=== PATIENT | male | born 1970 | race Caucasian/White ===

== ENCOUNTER 2017-02-15 17:41 | Inpatient (IN) | payer OTHER ==
[~2017-02-15] VITALS: Ht 170.2 cm; Wt 79.7 kg
[2017-02-15] MEDS ORDERED: MoRPHine SULFATE 4 MG/ML 1 ML CARP\\VIAL IV STA (18:00)
[2017-02-15] MEDS ORDERED: SODIUM CHLORIDE 0.9% 1000ML 1,000 ML IV STA (18:00)
[2017-02-15] MEDS ORDERED: ONDANSETRON INJ 2 MG/ML 2 ML VIAL IV STA (18:00)
[2017-02-15] MEDS ORDERED: SODIUM CHLORIDE 0.9% 500ML 500 ML IV STA (18:00)
[2017-02-15] MEDS ORDERED: PARO30TA5 PO (18:13)
[2017-02-15] MEDS ORDERED: CARV6.25 PO (18:13)
[2017-02-15] MEDS ORDERED: ASPI-461 PO (18:13)
[2017-02-15] MEDS ORDERED: GEMF600T3 PO (18:13)
[2017-02-15] MEDS ORDERED: PRAZ1CAP10 PO (18:13)
[2017-02-15] MEDS ORDERED: VNTHFA/IN INH (18:13)
[2017-02-15] MEDS ORDERED: IBUP600T44 PO (18:13)
[2017-02-15] MEDS ORDERED: HYDR50CA2 PO (18:13)
[2017-02-15] MEDS ORDERED: AMOX875T PO (18:14)
[2017-02-15] MEDS ORDERED: OPTIRAY 320 IV PRN (18:15)
[2017-02-15 18:35] LABS: BASO % 0.2 %; BASO ABS # 0.03 K/uL (0-0.2); COMPLETE YES; EOS % 0.6 %; HEMATOCRIT 44.6 % (42-52); IG% 0.3 %; LYMPH % 15.4 %; MEAN CELL VOLUME 90.8 fL (80-100); MEAN CORPUSCULAR HEMOGLOBIN 31.6 pg (25-34); MEAN CORPUSCULAR HGB CONC 34.8 g/dl (32-36); MEAN PLATELET VOLUME 9.5 fL (7.4-10.4); MONO % 8.4 %; NEUT % 75.1 %; PLATELET COUNT 474 K/uL (130-400); RED BLOOD COUNT 4.91 M/uL (4.7-6.1); WHITE BLOOD COUNT 17.49 K/uL (4.8-10.8)
[2017-02-15 18:58] LABS: PROTHROMBIN TIME (PATIENT) 10.8 SECONDS (9.0-12.0)
[2017-02-15 19:21] LABS: ALKALINE PHOSPHATASE 59 U/L (45-117); ALT/SGPT 22 U/L (12-78); BLOOD UREA NITROGEN 20 mg/dl (7-18); BUN/CREATININE RATIO 26.8 (10-20); CALCIUM 8.9 mg/dl (8.5-10.1); CARBON DIOXIDE 24 mmol/L (21-32); CHLORIDE 103 mmol/L (98-107); CREATININE 0.75 mg/dl (0.60-1.40); GLUCOSE 86 mg/dl (70-99)
[2017-02-15 19:26] LABS: POTASSIUM 3.4 mmol/L (3.5-5.1); SODIUM 138 mmol/L (136-145)
[2017-02-15 19:32] LABS: AST/SGOT 14 U/L (15-37)
--- NOTE | 2017-02-15 20:16 | DIAGNOSTIC IMAGING REPORT ---
CT OF THE ABDOMEN AND PELVIS WITH CONTRAST CLINICAL HISTORY: Left lower quadrant abdominal pain with bleeding. COMPARISON STUDY: None. TECHNIQUE: Following IV administration of 91 mL of Optiray-320, axial images of the abdomen and pelvis were obtained from the lung bases to the proximal femurs. Images were reviewed in the axial, sagittal, and coronal planes. IV contrast was administered without complication. A dose lowering technique was utilized adhering to the principles of ALARA. CT DOSE: 297.04 mGy.cm FINDINGS: Imaged portions of the lower chest partially visualize pacer leads. There is moderate cardiomegaly. A right hepatic lobe calcification is of no clinical significance. The spleen, adrenal glands, kidneys and pancreas are normal. There is no biliary or pancreatic ductal dilatation. There is no pneumatosis, free air or portal venous gas. There is no evidence for a bowel obstruction. The appendix is normal. Note is made of moderate wall thickening of cecum and ascending colon with mild wall thickening of the transverse colon consistent with a colitis. There is no abscess. No suspicious skeletal lesions are present. Note is made of a mildly enlarged left pelvic side wall/external iliac lymph node that measures 2.5 x 1.2 cm. This has central hypodensity with peripheral enhancement suggestive of necrosis. An additional left external iliac node measures 1.3 cm in short axis diameter. A left inguinal node measures 1.3 cm in short axis diameter and a left common iliac lymph node measures 1.2 cm in short axis diameter. IMPRESSION: 1. Moderate wall thickening of the cecum and ascending colon with mild wall thickening of the transverse colon. This represents a nonspecific colitis which could be infectious, inflammatory or ischemic in etiology. No free air or abscess. 2. Mild left common iliac, external iliac, pelvic sidewall and inguinal lymphadenopathy with a partially necrotic/suppurative left pelvic sidewall node. The findings may be infectious/reactive or neoplastic in etiology. Although statistically unlikely, tuberculosis could have this appearance. Findings discussed with Dr. Le at time of dictation. Electronically signed by: Clemente Phillips M.D. 02/15/2017 8:14 PM Dictated Date/Time: 02/15/2017 7:56 PM
[2017-02-15] MEDS ORDERED: ONDANSETRON INJ 2 MG/ML 2 ML VIAL IV PRN (21:15)
--- NOTE | 2017-02-15 21:21 | Progress Note ---
Progress Note Date of Service Feb 15, 2017. Progress Note ATTENDING ADDENDUM care coordinated with MARNIE Rider please refer to her notes for full details, I agree with her notes patient seen and examined, records reviewed by myself as well on exam, patient seen sitting up in bed comfortable main symptom is RLQ pain associated with hematochezia x 2 days reports being treated for left inner thigh infection a few days ago, associated with left inguinal pain no other symptoms VS noted and reviewed oriented x 3 , not in distress, speaks in sentences with no effort nor accessory muscle use normal rate, regular rhythm, no murmurs clear breath sounds bilaterally non distended, soft, normal bowel sounds, (+) moderate tenderness on the RLQ mild inguinal lymphadenopathy, left mild erythema left inner thigh no bipedal edema, erythema, warmth no neuro deficits WBC [address] abdomen: IMPRESSION: 1. Moderate wall thickening of the cecum and ascending colon with mild wall thickening of the transverse colon. This represents a nonspecific colitis which could be infectious, inflammatory or ischemic in etiology. No free air or abscess. 2. Mild left common iliac, external iliac, pelvic sidewall and inguinal lymphadenopathy with a partially necrotic/suppurative left pelvic sidewall node. The findings may be infectious/reactive or neoplastic in etiology. Although statistically unlikely, tuberculosis could have this appearance. Findings discussed with Dr. Le at time of dictation. ASSESSMENT/PLAN> RLQ PAIN, HEMATOCHEZIA - possible Infectious Colitis, Inflammatory Bowel Disease, Ischemia - check stool culture, C diff empiric Vanco + Zoysn - check Mesenteric US - GI consulted NPO post midnight LEFT PELVIC LYMPHADENOPATHY - neoplastic? necrotic? TB? - reactive from colon inflammation? - peripheral smear on antibiotics as noted above ID consulted other diagnoses and plan of care as per MARNIE Rider's notes Femi Rios MD
--- NOTE | 2017-02-15 21:22 | History and Physical ---
History & Physical Date & Time of Service: Feb 15, 2017 at 21:21 Chief Complaint: Abd Pain Primary Care Physician: Jey LOPEZ History of Present Illness Source: patient This is a 46yo M with history of CVA (2011, residual L leg weakness) , s/p pacemaker, PTSD who presents with lower abdominal pain x 2 days. Describes pain as a non-radiating pulling sensation in his RLQ. Also endorses associated bright red blood per rectum over the past few days. Denies any history of GI bleed, hemorrhoids or abdominal surgeries. Five days ago, patient was diagnosed with an infection of his left thigh. States that the groin area was red and painful and was associated with subjective fever and chills. Patient was started on Augmentin at [facility]. Once abdominal pain and rectal bleeding began 2 days later, he stopped taking the antibiotic in case it was causing his new symptoms. Currently denies any fever, chills, lightheadedness, nausea, vomiting, hematemesis, dysuria or melena. Past Medical/Surgical History Medical Problems: (1) H/O: CVA (cerebrovascular accident) Status: Chronic (2) HLD (hyperlipidemia) Status: Chronic (3) PTSD (post-traumatic stress disorder) Status: Chronic Surgical Problems: (1) S/P placement of cardiac pacemaker Status: Chronic Family History Diabetes mellitus GRANDMOTHER Social History Smoking Status: Current Every Day Smoker Alcohol Use: none Drug Use: none Housing status: other ([facility]) Allergies Coded Allergies: Acetaminophen (Unverified Allergy, Unknown, ANAPHYLAXIS, 02/15/17) Meperidine (Unverified Allergy, Unknown, ANAPHYLAXIS, 02/15/17) Home Medications Scheduled Amoxicillin & Pot Clavulanate (Augmentin 875-125 mg), 1 TAB PO BID Aspirin (Aspirin), 81 MG PO DAILY Carvedilol (Coreg), 6.25 MG PO BID Gemfibrozil (Lopid), 600 MG PO BID Hydroxyzine Pamoate (Vistaril), 50 MG PO BID Paroxetine (Paroxetine HCl), 30 MG PO DAILY Prazosin Hcl (Prazosin), 1 MG PO HS Scheduled PRN Albuterol Hfa (Ventolin Hfa), 2-4 PUFFS INH QID PRN for Shortness of Breath Ibuprofen (Motrin), 600 MG PO BID PRN for Pain Review of Systems Ten systems reviewed and negative except as noted in the HPI. Physical Exam Vital Signs Date Time Temp Pulse Resp B/P (MAP) Pulse Ox O2 Delivery O2 Flow Rate FiO2 02/15/17 19:30 60 16 120/71 98 Room Air 02/15/17 19:00 71 23 02/15/17 18:18 60 02/15/17 18:04 99 Room Air 02/15/17 17:43 36.8 63 18 125/80 99 Room Air General Appearance: WD/WN, no apparent distress Head: normocephalic, atraumatic Eyes: normal inspection, PERRL, sclerae normal ENT: normal ENT inspection, hearing grossly normal, pharynx normal Neck: supple, no adenopathy, trachea midline Respiratory/Chest: chest non-tender, lungs clear, normal breath sounds, no respiratory distress, no accessory muscle use Cardiovascular: regular rate, rhythm, no murmur, normal peripheral pulses Abdomen/GI: soft (non-distended ), no organomegaly, + tenderness (Moderate TTP of RLQ) Extremities/Musculoskelatal: no calf tenderness, no pedal edema, + pertinent finding (L ankle edema (chronic), L inguinal area with mild erythema and lymphadenopathy) Neurologic/Psych: no motor/sensory deficits, alert, normal mood/affect, oriented x 3 Skin: normal color, warm/dry Diagnostics Laboratory Results Results Past 24 Hours Test 02/15/17 18:22 02/15/17 18:37 02/15/17 20:01 Range/Units White Blood Count 17.49 4.8-10.8 K/uL Red Blood Count 4.91 4.7-6.1 M/uL Hemoglobin 15.5 14.0-18.0 g/dL Hematocrit 44.6 42-52 % Mean Corpuscular Volume 90.8 80-100 fL Mean Corpuscular Hemoglobin 31.6 25-34 pg Mean Corpuscular Hemoglobin Concent 34.8 32-36 g/dl Platelet Count 474 130-400 K/uL Mean Platelet Volume 9.5 7.4-10.4 fL Neutrophils (%) (Auto) 75.1 % Lymphocytes (%) (Auto) 15.4 % Monocytes (%) (Auto) 8.4 % Eosinophils (%) (Auto) 0.6 % Basophils (%) (Auto) 0.2 % Neutrophils # (Auto) 13.12 1.4-6.5 K/uL Lymphocytes # (Auto) 2.70 1.2-3.4 K/uL Monocytes # (Auto) 1.47 0.11-0.59 K/uL Eosinophils # (Auto) 0.11 0-0.5 K/uL Basophils # (Auto) 0.03 0-0.2 K/uL RDW Standard Deviation 46.3 36.4-46.3 fL RDW Coefficient of Variation 14.0 11.5-14.5 % Immature Granulocyte % (Auto) 0.3 % Immature Granulocyte # (Auto) 0.06 0.00-0.02 K/uL Sodium Level 138 136-145 mmol/L Potassium Level 3.4 3.5-5.1 mmol/L Chloride Level 103 98-107 mmol/L Carbon Dioxide Level 24 21-32 mmol/L Anion Gap 11.0 3-11 mmol/L Blood Urea Nitrogen 20 7-18 mg/dl Creatinine 0.75 0.60-1.40 mg/dl Estimated GFR () 125.7 Estimated GFR (Non- 108.5 BUN/Creatinine Ratio 26.8 10-20 Random Glucose 86 70-99 mg/dl Calcium Level 8.9 8.5-10.1 mg/dl Total Bilirubin 0.8 0.2-1 mg/dl Direct Bilirubin 0.2 0-0.2 mg/dl Aspartate Amino Transf (AST/SGOT) 14 15-37 U/L Alanine Aminotransferase (ALT/SGPT) 22 12-78 U/L Alkaline Phosphatase 59 45-117 U/L Total Protein 8.6 6.4-8.2 gm/dl Albumin 3.5 3.4-5.0 gm/dl Lipase 138 73-393 U/L Prothrombin Time 10.8 9.0-12.0 SECONDS Prothromb Time International Ratio 1.0 0.9-1.1 Activated Partial Thromboplast Time 27.0 21.0-31.0 SECONDS Partial Thromboplastin Ratio 1.0 Lactic Acid Level 0.9 0.4-2.0 mmol/L Diagnostic Radiology CT abd/pelvis: IMPRESSION: 1. Moderate wall thickening of the cecum and ascending colon with mild wall thickening of the transverse colon. This represents a nonspecific colitis which could be infectious, inflammatory or ischemic in etiology. No free air or abscess. 2. Mild left common iliac, external iliac, pelvic sidewall and inguinal lymphadenopathy with a partially necrotic/suppurative left pelvic sidewall node. The findings may be infectious/reactive or neoplastic in etiology. Although statistically unlikely, tuberculosis could have this appearance. Findings discussed with Dr. Le at time of dictation. EKG Atrial-paced rhythm Voltage criteria for left ventricular hypertrophy Impression Assessment and Plan This is a 46yo M with history of CVA (2011, residual L leg weakness) , s/p pacemaker, PTSD who presents with lower abdominal pain x 2 days. RLQ pain, hematochezia: -CT abd pelvis with moderate wall thickening of cecum and ascending colon with mild wall thickening of the transverse colon -Ddx infectious colitis, IBD, ischemic colitis -Leukocytosis of 17.5, hgb stable at 15.5 -Mesenteric ultrasound -Stool cultures, c diff toxin -Empiric abx coverage with vanc and zosyn -Pain control -GI consulted -NPO after midnight Left inguinal lymphadenopathy: -Recent L thigh infection, received Augmentin x 3 days -CT abd/pelvis with mild left common iliac, external iliac, pelvic sidewall and inguinal lymphadenopathy with a partially necrotic/suppurative left pelvic sidewall node -May be infectious/reactive in etiology -Need to consider tuberculosis -Airborne precautions -Peripheral smear -ID consulted H/o CVA: -Occurred in 2011, went to OSH in [facility] -Had PM placed during same hospitalization -Residual L leg weakness, has prosthetic device -Hold aspirin in setting of hematochezia PTSD: -Continue vistaril, paroxetine DVT Ppx: SCDs Code status: FULL PCP: Jey LOPEZ Dispo: Admitted to [facility]. Plan to return to [facility] once medically stable. Patient seen in collaboration with Dr. Rios. Please see addendum. Level of Care Med/Surg Resuscitation Status FULL RESUSCITATION VTE Prophylaxis VTE Risk Assessment Done? Y/N: Yes Risk Level: Moderate Given or contraindicated: SCD's
--- NOTE | 2017-02-15 21:38 | DIAGNOSTIC IMAGING REPORT ---
CHEST ONE VIEW PORTABLE CLINICAL HISTORY: GI bleed. COMPARISON STUDY: No previous studies for comparison. FINDINGS: A dual lead left subclavian pacemaker is in place. The heart is mildly enlarged. There is no evidence of pulmonary edema. No pneumothorax or pleural effusion is present. No consolidation is identified. IMPRESSION: 1. No acute cardiopulmonary findings. 2. Mild cardiomegaly. Electronically signed by: Clemente Phillips M.D. 02/15/2017 9:37 PM Dictated Date/Time: 02/15/2017 9:35 PM
[2017-02-15] MEDS ORDERED: PATIENT'S HEIGHT AND/OR WEIGHT NEEDED SCH (21:45)
[2017-02-15] MEDS ORDERED: VANCOMYCIN CONSULT ACTIVE SCH (21:48)
[2017-02-15] MEDS ORDERED: ALBUTEROL HFA 8 GM INHALER INH PRN (22:00)
[2017-02-15] MEDS ORDERED: PIPERACILL/TAZOBAC CONSULT ACTIVE PRN (22:00)
--- NOTE | 2017-02-15 22:15 | EMERGENCY ROOM VISIT NOTE ---
History Report prepared by Ady: Jim Nix Under the Supervision of: Dr. Syed Le D.O. First contact with patient: 17:45 Chief Complaint: ABDOMINAL PAIN Stated Complaint: ABD PAIN History of Present Illness The patient is a 46 year old male who presents to the Emergency Room with complaints of worsening lower abdominal pain for the past two days. He currently rates his discomfort as an 8/10 in severity. The patient states that he had an infection in his leg, and he was put on antibiotics. He notes that afterwards he started having this pain and he was having hematochezia and diarrhea, so he stopped taking the antibiotics. The patient has a history of a pacemaker and a stroke, and he takes a baby aspirin daily. The patient denies any history of abdominal surgeries or hemorrhoids. Pt denies headache, change in vision, fevers, chest pain, shortness of breath, nausea, vomiting, pain with urination, and melena. Source of History: patient Onset: two days ago Position: abdomen Symptom Intensity: 8/10 Timing: worsening Associated Symptoms: + hematochezia, + diarrhea Review of Systems See HPI for pertinent positives & negatives. A total of 10 systems reviewed and were otherwise negative. 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) Current/Historical Medications Scheduled Amoxicillin & Pot Clavulanate (Augmentin 875-125 mg), 1 TAB PO BID Aspirin (Aspirin), 81 MG PO DAILY Carvedilol (Coreg), 6.25 MG PO BID Gemfibrozil (Lopid), 600 MG PO BID Hydroxyzine Pamoate (Vistaril), 50 MG PO BID Paroxetine (Paroxetine HCl), 30 MG PO DAILY Prazosin Hcl (Prazosin), 1 MG PO HS Scheduled PRN Albuterol Hfa (Ventolin Hfa), 2-4 PUFFS INH QID PRN for Shortness of Breath Ibuprofen (Motrin), 600 MG PO BID PRN for Pain Allergies Coded Allergies: Acetaminophen (Unverified Allergy, Unknown, ANAPHYLAXIS, 02/15/17) Meperidine (Unverified Allergy, Unknown, ANAPHYLAXIS, 02/15/17) Physical Exam Vital Signs Date Time Temp Pulse Resp B/P (MAP) Pulse Ox O2 Delivery O2 Flow Rate FiO2 02/15/17 22:08 63 18 127/83 99 02/15/17 19:30 60 16 120/71 98 Room Air 02/15/17 19:00 71 23 02/15/17 18:18 60 02/15/17 18:04 99 Room Air 02/15/17 17:43 36.8 63 18 125/80 99 Room Air Physical Exam GENERAL: Sitting up in bed, shackled at bilateral arms. no acute distress, non- toxic EYE EXAM: normal conjunctiva. OROPHARYNX: no exudate, no erythema, lips, buccal mucosa, and tongue normal and mucous membranes are moist NECK: supple, no nuchal rigidity, no adenopathy, non-tender LUNGS: Clear to auscultation. Normal chest wall mechanics HEART: no murmurs, S1 normal and S2 normal CHEST: Pacemaker located along the left chest wall. ABDOMEN: abdomen soft, non-tender, normo-active bowel sounds, no masses, no rebound or guarding. RECTAL: No external hemorrhoids. Heme positive brown stool. SKIN: no rashes and no bruising UPPER EXTREMITIES: upper extremities are grossly normal. LOWER EXTREMITIES: Left lower extremity in knee brace. No pitting edema bilaterally. NEURO EXAM: Awake, alert, oriented to person, place, and time. No focal deficits in upper or lower extremity. Medical Decision & Procedures ER Provider Diagnostic Interpretation: Radiology results as stated below per my review and the radiologist's interpretation: CT OF THE ABDOMEN AND PELVIS WITH CONTRAST CLINICAL HISTORY: Left lower quadrant abdominal pain with bleeding. COMPARISON STUDY: None. TECHNIQUE: Following IV administration of 91 mL of Optiray-320, axial images of the abdomen and pelvis were obtained from the lung bases to the proximal femurs. Images were reviewed in the axial, sagittal, and coronal planes. IV contrast was administered without complication. A dose lowering technique was utilized adhering to the principles of ALARA. CT DOSE: 297.04 mGy.cm FINDINGS: Imaged portions of the lower chest partially visualize pacer leads. There is moderate cardiomegaly. A right hepatic lobe calcification is of no clinical significance. The spleen, adrenal glands, kidneys and pancreas are normal. There is no biliary or pancreatic ductal dilatation. There is no pneumatosis, free air or portal venous gas. There is no evidence for a bowel obstruction. The appendix is normal. Note is made of moderate wall thickening of cecum and ascending colon with mild wall thickening of the transverse colon consistent with a colitis. There is no abscess. No suspicious skeletal lesions are present. Note is made of a mildly enlarged left pelvic side wall/external iliac lymph node that measures 2.5 x 1.2 cm. This has central hypodensity with peripheral enhancement suggestive of necrosis. An additional left external iliac node measures 1.3 cm in short axis diameter. A left inguinal node measures 1.3 cm in short axis diameter and a left common iliac lymph node measures 1.2 cm in short axis diameter. IMPRESSION: 1. Moderate wall thickening of the cecum and ascending colon with mild wall thickening of the transverse colon. This represents a nonspecific colitis which could be infectious, inflammatory or ischemic in etiology. No free air or abscess. 2. Mild left common iliac, external iliac, pelvic sidewall and inguinal lymphadenopathy with a partially necrotic/suppurative left pelvic sidewall node. The findings may be infectious/reactive or neoplastic in etiology. Although statistically unlikely, tuberculosis could have this appearance. Findings discussed with Dr. Le at time of dictation. Electronically signed by: Clemente Phillips M.D. 02/15/2017 8:14 PM Dictated Date/Time: 02/15/2017 7:56 PM Laboratory Results 02/15/17 18:22 Red Blood Count 4.91, Mean Corpuscular Volume 90.8, Mean Corpuscular Hemoglobin 31.6, Mean Corpuscular Hemoglobin Concent 34.8, Mean Platelet Volume 9.5, Neutrophils (%) (Auto) 75.1, Lymphocytes (%) (Auto) 15.4, Monocytes (%) (Auto) 8.4, Eosinophils (%) (Auto) 0.6, Basophils (%) (Auto) 0.2, Neutrophils # (Auto) 13.12, Lymphocytes # (Auto) 2.70, Monocytes # (Auto) 1.47, Eosinophils # (Auto) 0.11, Basophils # (Auto) 0.03 02/15/17 18:22 Test 02/15/17 18:22 02/15/17 18:37 02/15/17 20:01 02/15/17 22:01 White Blood Count 17.49 K/uL (4.8-10.8) Red Blood Count 4.91 M/uL (4.7-6.1) Hemoglobin 15.5 g/dL (14.0-18.0) Hematocrit 44.6 % (42-52) Mean Corpuscular Volume 90.8 fL (80-100) Mean Corpuscular Hemoglobin 31.6 pg (25-34) Mean Corpuscular Hemoglobin Concent 34.8 g/dl (32-36) Platelet Count 474 K/uL (130-400) Mean Platelet Volume 9.5 fL (7.4-10.4) Neutrophils (%) (Auto) 75.1 % Lymphocytes (%) (Auto) 15.4 % Monocytes (%) (Auto) 8.4 % Eosinophils (%) (Auto) 0.6 % Basophils (%) (Auto) 0.2 % Neutrophils # (Auto) 13.12 K/uL (1.4-6.5) Lymphocytes # (Auto) 2.70 K/uL (1.2-3.4) Monocytes # (Auto) 1.47 K/uL (0.11-0.59) Eosinophils # (Auto) 0.11 K/uL (0-0.5) Basophils # (Auto) 0.03 K/uL (0-0.2) RDW Standard Deviation 46.3 fL (36.4-46.3) RDW Coefficient of Variation 14.0 % (11.5-14.5) Immature Granulocyte % (Auto) 0.3 % Immature Granulocyte # (Auto) 0.06 K/uL (0.00-0.02) Anion Gap 11.0 mmol/L (3-11) Estimated GFR () 125.7 Estimated GFR (Non- 108.5 BUN/Creatinine Ratio 26.8 (10-20) Calcium Level 8.9 mg/dl (8.5-10.1) Total Bilirubin 0.8 mg/dl (0.2-1) Direct Bilirubin 0.2 mg/dl (0-0.2) Aspartate Amino Transf (AST/SGOT) 14 U/L (15-37) Alanine Aminotransferase (ALT/SGPT) 22 U/L (12-78) Alkaline Phosphatase 59 U/L (45-117) Total Protein 8.6 gm/dl (6.4-8.2) Albumin 3.5 gm/dl (3.4-5.0) Lipase 138 U/L (73-393) Prothrombin Time 10.8 SECONDS (9.0-12.0) Prothromb Time International Ratio 1.0 (0.9-1.1) Activated Partial Thromboplast Time 27.0 SECONDS (21.0-31.0) Partial Thromboplastin Ratio 1.0 Lactic Acid Level 0.9 mmol/L (0.4-2.0) Laboratory results per my review. Medications Administered Medications (Trade) Dose Ordered Sig/Josefina Route Start Time Stop Time Status Last Admin Dose Admin Sodium Chloride 1,000 ml @ 999 mls/hr Q1H1M STAT IV 02/15/17 18:00 02/15/17 19:00 DC 02/15/17 18:40 999 MLS/HR Sodium Chloride 500 ml @ 999 mls/hr Q31M STAT IV 02/15/17 18:00 02/15/17 18:30 DC 02/15/17 18:00 999 MLS/HR Ondansetron HCl (Zofran Inj) 4 mg NOW STAT IV 02/15/17 18:00 02/15/17 18:01 DC 02/15/17 18:40 4 MG Morphine Sulfate (MoRPHine SULFATE INJ) 4 mg NOW STAT IV 02/15/17 18:00 02/15/17 18:01 DC 02/15/17 18:40 4 MG ECG Indication: abdominal pain Rate (beats per minute): 60 Rhythm: other (Atrial paced) Findings: T-wave inversion (lead 3), paced rhythm, left axis deviation ED Course ED COURSE: Vital signs were reviewed and showed normal vitals The patients medical record was reviewed The above diagnostic studies were performed and reviewed. ED treatments and interventions as stated above. 1745: The patient was evaluated in room B6. A complete history and physical examination was performed. 1839: The patient has rabia blood in the hat. 2019: I reviewed the patient's case with Dr. Berenice Palacios. He will evaluate the patient for further management. 2021: Upon reevaluation, the patient is doing well.I discussed my findings with the patient and he understands and agrees with the treatment plan. Based on the patients age, coexisting illnesses, exam and lab findings the decision to treat as an inpatient was made. The patient remained stable while under my care. The patient will be evaluated for further management. 2038: Medicine was in the patient's room evaluating him. Medical Decision Differential diagnoses includes but is not limited to gastritis, peptic ulcer disease, GERD, gallbladder disease, pancreatitis, small bowel obstruction, acute coronary syndrome, pericarditis, ischemic bowel, irritable bowel disease, irritable bowel syndrome, appendicitis, diverticulitis, malignancy, hernia, urinary tract infection, torsion, perforation, trauma, infectious. Patient is a 46-year-old male with past medical history of a pacemaker and a previous stroke that presents to ER for bright red blood per rectum which has been present for the past several days. Patient takes no blood thinners. He does have pain in the left lower quadrant. No recent surgeries. Labs show a leukocytosis of 17,000. BMP all LFTs, bilirubin lipase is normal. Lactic acid was 0.9. This does not suggest ischemia. INR was normal. Vitals are stable. CT shows a colitis. Rectal was heme positive. He had a small bloody bowel movement in the ER. CT did show a necrotic lymph node which I do favor secondary to the infection that he had in his left lower extremity which has now resolved. Discussed with internal medicine. Patient was admitted following IV narcotics and fluids for an extensive colitis which I do not believe his ischemic especially with normal lactate. Medication Reconcilliation Current Medication List: was personally reviewed by me Blood Pressure Screening Patient's blood pressure: Normal blood pressure Consults Time Called: 2010 Consulting Physician: Dr. Ng Returned Call: 2018 I reviewed the patient's case with Dr. Berenice Palacios. He will evaluate the patient for further management. Impression Primary Impression: GI bleed Additional Impressions: Colitis Necrotizing inflammation of lymph node Scribe Attestation The scribe's documentation has been prepared under my direction and personally reviewed by me in its entirety. I confirm that the note above accurately reflects all work, treatment, procedures, and medical decision making performed by me. Departure Information Dispostion Being Evaluated By Hospitalist Patient Instructions My [facility] Problem Qualifiers Primary Impression: GI bleed GI bleed type/associated pathology: unspecified gastrointestinal hemorrhage type Qualified Codes: K92.2 - Gastrointestinal hemorrhage, unspecified
[2017-02-15] MEDS ORDERED: POTASSIUM CHLORIDE 10 MEQ TABCR PO ONE (22:20)
[2017-02-15] MEDS ORDERED: PIPERACILL/TAZOBAC IV 4.5 GM in DEXTROSE 5% 100ML IV STA (22:23)
[2017-02-15 22:24] VITALS: Ht 170.2 cm; Wt 79.7 kg
[2017-02-15 22:25] VITALS: BP 131/85; PULSE 60; TEMP 36.9
--- NOTE | 2017-02-15 22:26 | DIAGNOSTIC IMAGING REPORT ---
DOPPLER ULTRASOUND OF THE MAJOR MESENTERIC VESSELS CLINICAL HISTORY: Abdominal pain. Evaluate for mesenteric ischemia. COMPARISON STUDY: CT of the abdomen and pelvis February 15, 2017. TECHNIQUE: Grayscale and color and duplex Doppler sonography of the major mesenteric vessels was performed. FINDINGS: The peak systolic velocity within the abdominal aorta was 97 cm/s. Peak systolic velocity within the celiac axis with 78 cm/s. Peak systolic velocity within the superior mesenteric artery was 94 cm/s. The vessels were patent. IMPRESSION: Patent major mesenteric vessels without evidence of a hemodynamically significant stenosis. Electronically signed by: Clemente Phillips M.D. 02/15/2017 10:25 PM Dictated Date/Time: 02/15/2017 10:22 PM
[2017-02-15] MEDS ORDERED: VANCOMYCIN INJ 2,000 MG in SODIUM CHLORIDE 0.9% 500ML 500 ML IV STA (22:36)
[2017-02-15] MEDS: SODIUM CHLORIDE 0.9% 1000ML 1,000 ML IV SCH (22:49)
--- NOTE | 2017-02-15 22:50 | Pharmacy Progress Note ---
Pharmacy Abx Dose Short Note Date of Service Feb 15, 2017. Assessment & Plan Pt p/w abdominal pxn and hematochezia. Being started on empiric antibx for a GI infxn. Pt currently has leukocytosis with a left shift. Afebrile. At this juncture his qSOFA score is 0. No BC are ordered. Pt did receive three days of Augmentin for cellulitis. Vanco: * Vanco 2000mg (25mg/kg) x1 to achieve a peak of 36mcg/mL * Vanco 1250mg (15.6mg/kg) q8 set to start at 0600 on 02/16 * Trough ordered for 02/17 @ 0530 prior to the 4th maintenance dose * Goal trough for unknown GI source: 15-20mcg/mL Zosyn: * Set to receive Zosyn 4.5g 30 min infusion * Then EI Zosyn 3.375g q8, approporiate for clinical status and eCrCl>20cc/min Pharmacy will continue to follow and will adjust dose/frequency as necessary. Thank you.
[2017-02-15 23:42] VITALS: BP 105/72; PULSE 53; TEMP 36.7; O2SAT 99
[2017-02-15] MEDS: PRAZOSIN HCL 1 MG CAP PO SCH (23:42)
[2017-02-15] MEDS ORDERED: INFLUENZA ADMINISTRATION CHARGE ONE (23:45)
[2017-02-15] MEDS ORDERED: INFLUENZA VIRUS QUAD VACCINE 0.5 ML SYR IM. ONE (23:45)
[2017-02-16 00:51] LABS: URINE APPEARANCE CLEAR (CLEAR); URINE BILIRUBIN NEG (NEG); URINE COLOR YELLOW; URINE NITRITE NEG (NEG); URINE PH 5.5 (4.5-7.5); URINE SPECIFIC GRAVITY > 1.045 (1.000-1.030); UROBILINOGEN NEG (NEG)
[2017-02-16 00:55] LABS: MANUAL MICROSCOPIC REQUIRED? NO; REVIEW REQ? NO
[2017-02-16] MEDS: TRAMADOL HCL 50 MG TAB PO PRN ×3 (01:03→12:15)
[2017-02-16] MEDS ORDERED: PIPERACILL/TAZOBAC IV 3.375 GM in DEXTROSE 5% 100ML IV SCH (04:00)
[2017-02-16] MEDS ORDERED: VANCOMYCIN INJ 1,250 MG in SODIUM CHLORIDE 0.9% 250ML 250 ML IV SCH (06:00)
[2017-02-16 06:55] LABS: HEMATOCRIT 38.7 % (42-52); MEAN CELL VOLUME 91.5 fL (80-100); MEAN CORPUSCULAR HEMOGLOBIN 31.4 pg (25-34); MEAN CORPUSCULAR HGB CONC 34.4 g/dl (32-36); MEAN PLATELET VOLUME 9.4 fL (7.4-10.4); PLATELET COUNT 383 K/uL (130-400); RED BLOOD COUNT 4.23 M/uL (4.7-6.1); WHITE BLOOD COUNT 10.15 K/uL (4.8-10.8)
[2017-02-16 07:17] VITALS: BP 98/60; PULSE 60; TEMP 37.1; O2SAT 96
[2017-02-16 07:21] LABS: BUN/CREATININE RATIO 22.2 (10-20); CALCIUM 7.7 mg/dl (8.5-10.1); CREATININE 0.84 mg/dl (0.60-1.40); POTASSIUM 3.3 mmol/L (3.5-5.1)
[2017-02-16 07:28] LABS: ALB/GLOB RATIO 0.7 (0.9-2)
[2017-02-16] MEDS: hydrOXYzine HCL 25 MG TAB PO SCH ×2 (08:07→21:57)
[2017-02-16] MEDS: PAROXETINE 30 MG TAB PO SCH (08:07)
[2017-02-16 08:11] VITALS: BP 95/59
[2017-02-16 09:07] VITALS: BP 107/68; PULSE 62
[2017-02-16] MEDS: CARVEDILOL 6.25 MG TAB PO SCH ×2 (09:13→21:57)
[2017-02-16] MEDS: SODIUM CHLORIDE 0.9% 1000ML 1,000 ML IV SCH ×2 (09:13→14:32)
--- NOTE | 2017-02-16 09:20 | Gastrointestinal Consultation ---
Gastrointestinal Consultation Date of Consultation: Feb 16, 2017 Attending Physician: Beth Consulting Physician: Eric Reason for Consultation: abnormal imaging, BRBPR History of Present Illness Patient is a 46 year old male w/ history of CVA in 2011, pacemaker and others listed below who presented through the ED for evaluation of abd pain and rectal bleeding. He notes was started on ABX for right extremity cellulitis, but DC'd ABX as he developed abdominal pain and rectal bleeding, he notes this was four days ago. Symptoms persisted despite dc ABX. He notes lower abdominal cramping, constant, unchanged w/ PO intake, unchanged with BM. He notes he is not having diarrhea, he is moving his bowels 1-2 times daily. No stool, just BRB. Some clots. No rectal pain or rectal discomfort. He tells me he had an EGD/ Colonoscopy in [place] a few years ago, which were abnormal, but he does not recall specifics. He notes no follow up with the scope. He denies chronic abdominal pain. No history of rectal bleeding. Today, continues to have abd pain , rectal bleeding. C.diff negative, culture pending. No fever, chills, CP, SOB. Family history of IBD: none Rectal exam in ED: no hemorrhoids, brown, heme + stools CT ABD/pelvis 02/15/17: Moderate wall thickening of the cecum and ascending colon with mild wall thickening of the transverse colon. This represents a nonspecific colitis which could be infectious, inflammatory or ischemic in etiology. No free air or abscess. Mild left common iliac, external iliac, pelvic sidewall and inguinal lymphadenopathy with a partially necrotic/ suppurative left pelvic sidewall node. The findings may be infectious/reactive or neoplastic in etiology. Although statistically unlikely, tuberculosis could have this appearance. Findings discussed with Dr. Le at time of dictation. Chest XR 02/15/17: No acute cardiopulmonary findings. Mild cardiomegaly. ABD US 02/15/17: Patent major mesenteric vessels without evidence of a hemodynamically significant stenosis. 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) Allergies Coded Allergies: Acetaminophen (Unverified Allergy, Unknown, ANAPHYLAXIS, 02/15/17) Meperidine (Unverified Allergy, Unknown, ANAPHYLAXIS, 02/15/17) Current Medications Home Meds and Scripts Medications Dose Route/Sig Max Daily Dose Days Date Category Dose Instructions Augmentin 875-125 mg (Amoxicillin & Pot Clavulanate) 1 Tab Tab 1 Tab PO BID 02/15/17 Reported Ventolin Hfa (Albuterol) 200 Puffs/13085 Mcg Aers 2-4 Puffs INH QID PRN 02/15/17 Reported Prazosin (Prazosin HCl) 1 Mg Cap 1 Mg PO HS 02/15/17 Reported Motrin (Ibuprofen) 600 Mg Tab 600 Mg PO BID PRN 02/15/17 Reported Paroxetine HCl (Paroxetine) 30 Mg Tab 30 Mg PO DAILY 02/15/17 Reported Vistaril (Hydroxyzine Pamoate) 50 Mg Cap 50 Mg PO BID 02/15/17 Reported PRN ITCH Lopid (Gemfibrozil) 600 Mg Tab 600 Mg PO BID 02/15/17 Reported Coreg (Carvedilol) 6.25 Mg Tab 6.25 Mg PO BID 02/15/17 Reported Aspirin 81 Mg Tab 81 Mg PO DAILY 02/15/17 Reported Review of Systems Constitutional: No fever, No chills Respiratory: No cough, No shortness of breath Cardiac: No chest pain, No edema Abdomen: + pain, + GI bleeding, No nausea, No vomiting, No diarrhea, No constipation Physical Exam Date Time Temp Pulse Resp B/P (MAP) Pulse Ox O2 Delivery O2 Flow Rate FiO2 02/16/17 09:07 62 107/68 (81) 02/16/17 08:11 95/59 (71) 02/16/17 07:17 37.1 60 18 98/60 (73) 96 02/16/17 00:00 Room Air 02/15/17 23:42 36.7 53 18 105/72 (83) 99 Room Air 02/15/17 22:25 36.9 60 18 131/85 Room Air 02/15/17 22:08 63 18 127/83 99 02/15/17 19:30 60 16 120/71 98 Room Air 12/7/17 19:00 71 23 02/15/17 18:18 60 02/15/17 18:04 99 Room Air 02/15/17 17:43 36.8 63 18 125/80 99 Room Air General Appearance: no apparent distress Eyes: PERRL ENT: hearing grossly normal Neck: supple Respiratory/Chest: lungs clear Cardiovascular: regular rate, rhythm Abdomen: normal bowel sounds, soft, no organomegaly, + tenderness Neurologic/Psych: alert, normal mood/affect, oriented x 3 Skin: normal color Laboratory Results Last 24 Hours Test 02/15/17 18:22 02/15/17 18:37 02/15/17 20:01 02/16/17 00:15 White Blood Count 17.49 K/uL Red Blood Count 4.91 M/uL Hemoglobin 15.5 g/dL Hematocrit 44.6 % Mean Corpuscular Volume 90.8 fL Mean Corpuscular Hemoglobin 31.6 pg Mean Corpuscular Hemoglobin Concent 34.8 g/dl Platelet Count 474 K/uL Mean Platelet Volume 9.5 fL Neutrophils (%) (Auto) 75.1 % Lymphocytes (%) (Auto) 15.4 % Monocytes (%) (Auto) 8.4 % Eosinophils (%) (Auto) 0.6 % Basophils (%) (Auto) 0.2 % Neutrophils # (Auto) 13.12 K/uL Lymphocytes # (Auto) 2.70 K/uL Monocytes # (Auto) 1.47 K/uL Eosinophils # (Auto) 0.11 K/uL Basophils # (Auto) 0.03 K/uL RDW Standard Deviation 46.3 fL RDW Coefficient of Variation 14.0 % Immature Granulocyte % (Auto) 0.3 % Immature Granulocyte # (Auto) 0.06 K/uL Nucleated RBC Absolute Count (auto) 0.00 K/uL Nucleated Red Blood Cells % 0.0 % Sodium Level 138 mmol/L Potassium Level 3.4 mmol/L Chloride Level 103 mmol/L Carbon Dioxide Level 24 mmol/L Anion Gap 11.0 mmol/L Blood Urea Nitrogen 20 mg/dl Creatinine 0.75 mg/dl Estimated GFR () 125.7 Estimated GFR (Non- 108.5 BUN/Creatinine Ratio 26.8 Random Glucose 86 mg/dl Calcium Level 8.9 mg/dl Total Bilirubin 0.8 mg/dl Direct Bilirubin 0.2 mg/dl Aspartate Amino Transf (AST/SGOT) 14 U/L Alanine Aminotransferase (ALT/SGPT) 22 U/L Alkaline Phosphatase 59 U/L Total Protein 8.6 gm/dl Albumin 3.5 gm/dl Lipase 138 U/L Prothrombin Time 10.8 SECONDS Prothromb Time International Ratio 1.0 Activated Partial Thromboplast Time 27.0 SECONDS Partial Thromboplastin Ratio 1.0 Lactic Acid Level 0.9 mmol/L Urine Color YELLOW Urine Appearance CLEAR Urine pH 5.5 Urine Specific [place] > 1.045 Urine Protein NEG Urine Glucose (UA) NEG Urine Ketones 1+ Urine Occult Blood NEG Urine Nitrite NEG Urine Bilirubin NEG Urine Urobilinogen NEG Urine Leukocyte Esterase NEG Test 02/16/17 06:29 White Blood Count 10.15 K/uL Red Blood Count 4.23 M/uL Hemoglobin 13.3 g/dL Hematocrit 38.7 % Mean Corpuscular Volume 91.5 fL Mean Corpuscular Hemoglobin 31.4 pg Mean Corpuscular Hemoglobin Concent 34.4 g/dl RDW Standard Deviation 46.6 fL RDW Coefficient of Variation 13.9 % Platelet Count 383 K/uL Mean Platelet Volume 9.4 fL Sodium Level 138 mmol/L Potassium Level 3.3 mmol/L Chloride Level 107 mmol/L Carbon Dioxide Level 27 mmol/L Anion Gap 4.0 mmol/L Blood Urea Nitrogen 19 mg/dl Creatinine 0.84 mg/dl Est Creatinine Clear Calc Drug Dose 108.8 ml/min Estimated GFR () 120.0 Estimated GFR (Non- 103.5 BUN/Creatinine Ratio 22.2 Random Glucose 93 mg/dl Calcium Level 7.7 mg/dl Total Bilirubin 0.6 mg/dl Aspartate Amino Transf (AST/SGOT) 11 U/L Alanine Aminotransferase (ALT/SGPT) 18 U/L Alkaline Phosphatase 48 U/L Total Protein 6.6 gm/dl Albumin 2.7 gm/dl Globulin 3.9 gm/dl Albumin/Globulin Ratio 0.7 Impression Patient is a 46 year old male with RLQ abdominal pain, w/ radiation to LLQ, constant, unchanged with PO/BM w/ associated rectal bleeding following ABX use for cellulitis. Moving his bowels 1-2 times daily, w/o rectal pain. BRB w/ associated clots. CT w/ moderate wall thickening of the cecum and ascending colon with mild wall thickening of the transverse colon. Also, note of mild left common iliac, external iliac, pelvic sidewall and inguinal lymphadenopathy with a partially necrotic/suppurative left pelvic sidewall node. GI differentials: infectious vs inflammatory vs ischemic Plan - c.diff negative - follow up stool culture - ok to continue with ABX as culture already sent - trend H&H - transfuse PRN - monitor stools - ok for ASA - Bentyl 10 mg TID for abdominal pain - Will need follow up for lymphadenopathy - CT abd/pelvis with IV and PO contrast - Plan for Colonoscopy on Sunday - Please keep NPO after midnight - Please prep with 119 gm miralax at 1700, 20 mg dulcolax at 1700 and 119 gm miralax at 2100 Please call with any questions/concerns. GI will follow. I saw and evaluated the patient. We are consult at for evaluation of an abnormal CT scan. The patient notes he has had several endoscopic procedures in the past but does not recall a colonoscopy. He does have a CT which shows thickening in the right colon. Physical examination Physical examination No obvious distress No scleral icterus Impression: Patient presenting with a CT showing thickening in the right colon. There is also some abnormal-appearing inguinal lymphadenopathy. I would suggest repeat CT or MRI to better define the lymph node findings. We will proceed with colonoscopy early next week to evaluate the colonic wall thickening. Please call with any questions or concerns over the weekend
--- NOTE | 2017-02-16 09:56 | Progress Note ---
Progress Note Date of Service Feb 16, 2017. Progress Note ID Consult Dictated #[id number] A/P: 1. Colitis 2. Leukocytosis -Will change to cipro, pending stool culture results -GI eval in progress, states h/o abnml colonoscopy 1-2 years ago -Negative cxr, multiple ppds placed and are negative, tb much less likely, especially with acute onset of symptoms, remove isolation -Thank you
--- NOTE | 2017-02-16 10:18 | INFECT. DISEASE CONSULTATION ---
DATE OF CONSULTATION: 02/16/2017 DATE OF CONSULTATION: 02/16/2017 HISTORY OF PRESENT ILLNESS: This is a 46-year-old gentleman who is a resident at [facility] who was admitted with bright red blood per rectum since 02/13/2017. He states that this was a sudden onset. He had recently been on Augmentin for a left thigh infection which he describes as cellulitis. He states he initially thought this could be secondary to antibiotics and he self-discontinued them, however his bleeding continued. He also has lower abdominal cramping pain which is new. He denies any fevers or chills associated with this. He has no nausea or vomiting. He has not had any vomiting of blood. He states that 1.5 years ago he did have a colonoscopy and upper endoscopy done at [facility] when he was inmate at a different facility and he states that he was told that his colonoscopy was abnormal but did not have any additional followup. He has been an inmate for several years and does have yearly PPD screenings. He states they all have been negative and his most recent PPD was 7 months ago. He did have a chest x-ray in the Emergency Room which was unremarkable. Because of his abdominal complaints a CAT scan of the abdomen and pelvis was performed in the ER last night. Results of this showed moderate wall thickening of the cecum and ascending colon with mild thickening of the transverse colon representing a nonspecific colitis which could be infectious, inflammatory or ischemic. There is no evidence of abscess. He also had mild lymphadenopathy with some necrotic nodules on the left pelvic sidewall, a differential diagnosis of tuberculosis was mentioned in the CAT scan report and therefore infectious diseases was consulted. A C. diff specimen was sent yesterday and is negative. Stool sample is pending. No additional cultures are available. He initially had a white blood cell count of 17.4 in the ER yesterday, it has improved to 10.1. He is not aware of any other inmates who has had any abdominal or GI complaints recently. He continues to deny fevers or chills. He states he has continual bleeding here in the hospital. He was evaluated by GI this morning as well. He has no cough, shortness of breath, night sweats or weight loss. He has no known TB exposure and again has had multiple negative PPDs in the past. PAST MEDICAL HISTORY: Significant for history of CVA, hyperlipidemia, posttraumatic stress disorder. PAST SURGICAL HISTORY: Significant for pacemaker placement and previous colonoscopy which he reports as abnormal. FAMILY HISTORY: Noncontributory. SOCIAL HISTORY: Significant for daily tobacco use. He is an inmate at [facility]. He denies any history of alcohol or drug use. ALLERGIES: HE HAS ALLERGIES TO MEPERIDINE AND TYLENOL. MEDICATIONS: INCLUDE COREG, VISTARIL, PAXIL, VANCOMYCIN, ZOSYN, PRAZOSIN, ALBUTEROL, ZOFRAN, AND ULTRAM. PHYSICAL EXAMINATION: VITAL SIGNS: He is afebrile since admission. Pulse 62, respiratory rate is 18, blood pressure 107/68, oxygen saturation is 96-99% on room air. GENERAL: He is awake, alert and oriented x3. He is in no acute distress. HEAD, EYES, EARS, NOSE, AND THROAT: Mucous membranes are moist. Extraocular muscles are intact. HEART: Regular. LUNGS: Clear. ABDOMEN: Soft and tender to palpation especially in the lower abdominal area. EXTREMITIES: There is no lower extremity edema. LABORATORY STUDIES: CBC today reveals a white blood cell count of 10.1, hemoglobin 13.3 and platelets are 383. Chemistry panel reveals a sodium of 138, potassium 3.3, chloride 107, bicarbonate 27, BUN 19, creatinine 0.8, glucose is 93. UA was negative. A stool specimen is pending. C. diff was negative. Ultrasound of the abdomen was done in the ER and showed patent vessels. Chest x-ray was unremarkable. CT of the abdomen and pelvis is as above. ASSESSMENT AND PLAN: 1. Colitis. 2. Leukocytosis, which could be reactive secondary to acute gastrointestinal blood loss versus infection. I do agree with stool culture. The patient will be placed on ciprofloxacin empirically pending stool culture results. I highly doubt tuberculosis with multiple negative PPDs and no known exposure. He does undergo a yearly TB screening as an inmate and has not had a positive. There are no new contacts or concern for pulmonary. TB and airborne isolation will be discontinued at this time. GI evaluation is undergoing.
[2017-02-16 15:13] VITALS: BP 112/71; PULSE 60; TEMP 36.4; O2SAT 95
[2017-02-16] MEDS ORDERED: BISACODYL 5 MG TABEC PO ONE (17:00)
[2017-02-16] MEDS ORDERED: POLYETHYLENE (MIRALAX) 17 GM PACK PO ONE ×2 (17:00→21:00)
--- NOTE | 2017-02-16 18:34 | Progress Note ---
Internal Med Progress Note Date of Service: Feb 16, 2017. Provider Documentation: SUBJECTIVE: complains of abdominal pain and diarrhea tolerating clears afebrile no sob no cough OBJECTIVE: Vital Signs-as noted below Exam: General-alert and awake and not in distress ENT- normal hearing Neck-no neck masses Lungs-cta b/l no wheezing no crackles present Heart-s1 and s2 heard regular rate and rhythm no murmurs Abdomen-soft BS present mild diffuse tender no distension Extremities- no edema no erythema Neuro-alert and awake moves extremities Lab data as noted below. ASSESSMENT & PLAN: This is a 46yo M with history of CVA (2011, residual L leg weakness) , s/p pacemaker, PTSD who presents with lower abdominal pain x 2 days. RLQ pain, hematochezia: CT abd pelvis without contrast- moderate wall thickening of cecum and ascending colon with mild wall thickening of the transverse colon colitis mesenteric US unremarkable c diff negative await stool studies on cipro Gi plan for colonoscopy and recommends ct abd/pelvis with po and iv contrast on clears Left inguinal lymphadenopathy: Recent L thigh infection, received Augmentin x [address] abd/pelvis with mild left common iliac, external iliac, pelvic sidewall and inguinal lymphadenopathy with a partially necrotic/suppurative left pelvic sidewall node seen by ID and does not think its related to TB f/u repeat ct scan H/o CVA: Occurred in 2011, went to OSH in [facility] Had PM placed during same hospitalization HAs Residual L leg weakness, has prosthetic device Holding aspirin in setting of hematochezia PTSD: on vistaril, paroxetine DVT Ppx: SCDs Code status: FULL PCP: Jey LOPEZ Dispo:To be determined. Plan to return to [facility] once medically stable. Vital Signs: Date Time Temp Pulse Resp B/P (MAP) Pulse Ox O2 Delivery O2 Flow Rate FiO2 02/16/17 16:00 Room Air 02/16/17 15:13 36.4 60 20 112/71 (85) 95 02/16/17 09:07 62 107/68 (81) 02/16/17 08:11 95/59 (71) 02/16/17 08:00 Room Air 02/16/17 07:17 37.1 60 18 98/60 (73) 96 02/16/17 00:00 Room Air 02/15/17 23:42 36.7 53 18 105/72 (83) 99 Room Air 02/15/17 22:25 36.9 60 18 131/85 Room Air 02/15/17 22:08 63 18 127/83 99 02/15/17 19:30 60 16 120/71 98 Room Air 02/15/17 19:00 71 23 Lab Results: Results Past 24 Hours Test 02/15/17 18:37 02/15/17 20:01 02/16/17 00:15 02/16/17 06:29 Range/Units Prothrombin Time 10.8 9.0-12.0 SECONDS Prothromb Time International Ratio 1.0 0.9-1.1 Activated Partial Thromboplast Time 27.0 21.0-31.0 SECONDS Partial Thromboplastin Ratio 1.0 Lactic Acid Level 0.9 0.4-2.0 mmol/L Urine Color YELLOW Urine Appearance CLEAR CLEAR Urine pH 5.5 4.5-7.5 Urine Specific [place] > 1.045 1.000-1.030 Urine Protein NEG NEG Urine Glucose (UA) NEG NEG Urine Ketones 1+ NEG Urine Occult Blood NEG NEG Urine Nitrite NEG NEG Urine Bilirubin NEG NEG Urine Urobilinogen NEG NEG Urine Leukocyte Esterase NEG NEG White Blood Count 10.15 4.8-10.8 K/uL Red Blood Count 4.23 4.7-6.1 M/uL Hemoglobin 13.3 14.0-18.0 g/dL Hematocrit 38.7 42-52 % Mean Corpuscular Volume 91.5 80-100 fL Mean Corpuscular Hemoglobin 31.4 25-34 pg Mean Corpuscular Hemoglobin Concent 34.4 32-36 g/dl RDW Standard Deviation 46.6 36.4-46.3 fL RDW Coefficient of Variation 13.9 11.5-14.5 % Platelet Count 383 130-400 K/uL Mean Platelet Volume 9.4 7.4-10.4 fL Sodium Level 138 136-145 mmol/L Potassium Level 3.3 3.5-5.1 mmol/L Chloride Level 107 98-107 mmol/L Carbon Dioxide Level 27 21-32 mmol/L Anion Gap 4.0 3-11 mmol/L Blood Urea Nitrogen 19 7-18 mg/dl Creatinine 0.84 0.60-1.40 mg/dl Est Creatinine Clear Calc Drug Dose 108.8 ml/min Estimated GFR () 120.0 Estimated GFR (Non- 103.5 BUN/Creatinine Ratio 22.2 10-20 Random Glucose 93 70-99 mg/dl Calcium Level 7.7 8.5-10.1 mg/dl Total Bilirubin 0.6 0.2-1 mg/dl Aspartate Amino Transf (AST/SGOT) 11 15-37 U/L Alanine Aminotransferase (ALT/SGPT) 18 12-78 U/L Alkaline Phosphatase 48 45-117 U/L Total Protein 6.6 6.4-8.2 gm/dl Albumin 2.7 3.4-5.0 gm/dl Globulin 3.9 2.5-4.0 gm/dl Albumin/Globulin Ratio 0.7 0.9-2 Microbiology Results 02/16/17 MRSA DNA Surveillance Screen - Final, Complete Specimen Negative for MRSA by DNA Probe 02/16/17 C.difficile Toxin B Gene (PCR) - Final, Complete No C. difficile toxin B gene detected 02/16/17 Shiga Toxin Test, Received Pending 02/16/17 Stool Culture, Received Pending
[2017-02-16] MEDS ORDERED: OPTIRAY 320 IV PRN (18:45)
--- NOTE | 2017-02-16 19:03 | DIAGNOSTIC IMAGING REPORT ---
ABDOMEN AND PELVIS CT WITH IV AND ORAL CONTRAST CT DOSE: 306.34 mGy.cm HISTORY: Acute colitis with pelvic lymphadenopathy colitis. pelvic lympadenopathy TECHNIQUE: Multiaxial CT images of the abdomen and pelvis were performed following the use of intravenous and oral contrast. A dose lowering technique was utilized adhering to the principles of ALARA. COMPARISON STUDY: CT abdomen and pelvis 02/15/2017. FINDINGS: Mild dependent subsegmental bibasilar atelectasis. No pneumatosis or pneumoperitoneum identified. Imaged inferior cardiac chambers are mildly enlarged with pacer leads noted overlying the right atrium and right ventricle. Gallbladder is mildly contracted. Calcification of the right hepatic lobe is noted. No intrahepatic biliary ductal dilation. Spleen, pancreas and adrenal glands are within normal limits. Kidneys, ureters, prostate and urinary bladder are within normal limits. Aorta is normal in both course and caliber. Slightly decreased size of the periaortic, left common and external iliac chain and left pelvic sidewall adenopathy is seen. Lymph node adjacent to the left iliac vein now measures 8 mm, previously 12 mm. Centrally necrotic left pelvic sidewall lymph node now measures 9 mm in short axis, previously 1.2 m. 1.3 cm lymph node adjacent to the left external iliac vein on image 373 series 3 is unchanged. Conglomerate left inguinal lymphadenopathy is unchanged measuring up to 2.9 x 1.2 cm. No small bowel obstruction. There is decreased amount of wall thickening involving the cecum, ascending and transverse colon from comparison with decreased pericolonic inflammatory stranding. Only mild wall thickening persists. No colonic mass identified. Appendix appears normal. Soft tissues are within normal limits. Severe intervertebral disc space narrowing at L5-S1 with circumferential annular disc bulge. IMPRESSION: 1. Decreased wall thickening throughout the cecum, ascending and transverse colon suggests resolving colitis. 2. Persistent mildly decreased size of the left iliac and pelvic sidewall adenopathy. Left inguinal adenopathy is unchanged. These findings may be reactive, however metastasis or lymphoproliferative disorder are additional considerations. Follow-up recommended. 3. No bowel obstruction. 4. Normal appendix. Electronically signed by: Presley Bro M.D. 02/16/2017 7:02 PM Dictated Date/Time: 02/16/2017 6:50 PM
[2017-02-16] MEDS: CIPROFLOXACIN 500 MG TAB PO SCH (21:56)
[2017-02-16] MEDS: PRAZOSIN HCL 1 MG CAP PO SCH (21:57)
[2017-02-16 23:41] VITALS: BP 112/71; PULSE 60; TEMP 36.4; O2SAT 95
[2017-02-17] MEDS: SODIUM CHLORIDE 0.9% 1000ML 1,000 ML IV SCH ×3 (01:42→18:45)
[2017-02-17] MEDS ORDERED: VANCOMYCIN TROUGH ONE (05:30)
[2017-02-17 06:55] LABS: CREATININE 0.68 mg/dl (0.60-1.40)
[2017-02-17 08:00] VITALS: O2SAT 95
[2017-02-17 08:05] VITALS: BP 110/66; PULSE 60; TEMP 36.8; O2SAT 97
[2017-02-17] MEDS: CARVEDILOL 6.25 MG TAB PO SCH ×2 (09:04→20:23)
[2017-02-17] MEDS: hydrOXYzine HCL 25 MG TAB PO SCH ×2 (09:05→20:22)
[2017-02-17] MEDS: PAROXETINE 30 MG TAB PO SCH (09:05)
[2017-02-17] MEDS: CIPROFLOXACIN 500 MG TAB PO SCH ×2 (09:05→20:23)
[2017-02-17 15:11] LABS: BUN/CREATININE RATIO 7.5 (10-20); CALCIUM 8.3 mg/dl (8.5-10.1); CREATININE 0.8 mg/dl (0.60-1.40); MAGNESIUM 2.1 mg/dl (1.8-2.4); POTASSIUM 3.4 mmol/L (3.5-5.1)
[2017-02-17 15:35] VITALS: BP 122/70; PULSE 62; TEMP 36.7; O2SAT 95
[2017-02-17 17:38] VITALS: O2SAT 95
--- NOTE | 2017-02-17 18:25 | Progress Note ---
Internal Med Progress Note Date of Service: Feb 17, 2017. Provider Documentation: SUBJECTIVE: diarrhea improved but still has significant diarrhea tolerating clears afebrile no sob OBJECTIVE: Vital Signs-as noted below Exam: General-alert and awake and not in distress ENT- normal hearing Neck-no neck masses Lungs-cta b/l no wheezing no crackles present Heart-s1 and s2 heard regular rate and rhythm no murmurs Abdomen-soft BS present mild diffuse tender no distension Extremities- no edema no erythema Neuro-alert and awake moves extremities Lab data as noted below. ASSESSMENT & PLAN: This is a 46yo M with history of CVA (2011, residual L leg weakness) , s/p pacemaker, PTSD who presents with lower abdominal pain x 2 days. RLQ pain, hematochezia: CT abd pelvis without contrast- moderate wall thickening of cecum and ascending colon with mild wall thickening of the transverse colon colitis mesenteric US unremarkable c diff negative stool studies negative so far on cipro ct abd/pelvis with contast-improving colitis Gi plan for colonoscopy on clears Left inguinal lymphadenopathy: Recent L thigh infection, received Augmentin x [address] abd/pelvis with mild left common iliac, external iliac, pelvic sidewall and inguinal lymphadenopathy with a partially necrotic/suppurative left pelvic sidewall node seen by ID and does not think its related to TB repeat ct scan some improvement in nodes needs followup H/o CVA: Occurred in 2011, went to OSH in [facility] Had PM placed during same hospitalization HAs Residual L leg weakness, has prosthetic device Holding aspirin in setting of hematochezia PTSD: on vistaril, paroxetine DVT Ppx: SCDs Code status: FULL PCP: Jey LOPEZ Dispo:To be determined. Plan to return to [facility] once medically stable. Vital Signs: Date Time Temp Pulse Resp B/P (MAP) Pulse Ox O2 Delivery O2 Flow Rate FiO2 02/17/17 17:38 95 Room Air 02/17/17 15:35 36.7 62 18 122/70 (87) 95 Room Air 02/17/17 08:05 36.8 60 20 110/66 (81) 97 02/17/17 08:00 95 Room Air 02/17/17 00:15 Room Air 02/16/17 23:41 36.4 60 18 112/71 (85) 95 Room Air Lab Results: Results Past 24 Hours Test 02/17/17 05:43 02/17/17 14:38 Range/Units Creatinine 0.68 0.80 0.60-1.40 mg/dl Est Creatinine Clear Calc Drug Dose 134.4 114.3 ml/min Estimated GFR () 130.9 122.4 Estimated GFR (Non- 112.9 105.6 Sodium Level 136 136-145 mmol/L Potassium Level 3.4 3.5-5.1 mmol/L Chloride Level 106 98-107 mmol/L Carbon Dioxide Level 27 21-32 mmol/L Anion Gap 3.0 3-11 mmol/L Blood Urea Nitrogen 6 7-18 mg/dl BUN/Creatinine Ratio 7.5 10-20 Random Glucose 78 70-99 mg/dl Calcium Level 8.3 8.5-10.1 mg/dl Magnesium Level 2.1 1.8-2.4 mg/dl
[2017-02-17 20:15] VITALS: BP 118/73; PULSE 62; TEMP 36.9; O2SAT 95
[2017-02-17] MEDS: PRAZOSIN HCL 1 MG CAP PO SCH (20:23)
[2017-02-17 23:40] VITALS: BP 110/68; PULSE 61; TEMP 36.9; O2SAT 94
[2017-02-18] MEDS: SODIUM CHLORIDE 0.9% 1000ML 1,000 ML IV SCH ×3 (02:57→20:29)
[2017-02-18 06:40] LABS: BASO % 0.6 %; BASO ABS # 0.04 K/uL (0-0.2); COMPLETE YES; IG% 0.5 %; LYMPH % 31.8 %; LYMPH ABS # 2.05 K/uL (1.2-3.4); MEAN CELL VOLUME 91.1 fL (80-100); MEAN CORPUSCULAR HEMOGLOBIN 30.8 pg (25-34); MEAN CORPUSCULAR HGB CONC 33.8 g/dl (32-36); MEAN PLATELET VOLUME 9.5 fL (7.4-10.4); MONO % 16.3 %; NEUT % 46.8 %; PLATELET COUNT 344 K/uL (130-400); RED BLOOD COUNT 4.28 M/uL (4.7-6.1); WHITE BLOOD COUNT 6.45 K/uL (4.8-10.8)
[2017-02-18 07:19] LABS: BUN/CREATININE RATIO 6.5 (10-20); CALCIUM 8.2 mg/dl (8.5-10.1); CREATININE 0.73 mg/dl (0.60-1.40); MAGNESIUM 2.1 mg/dl (1.8-2.4); POTASSIUM 2.8 mmol/L (3.5-5.1)
[2017-02-18] MEDS ORDERED: POTASSIUM CHLORIDE 20 MEQ TABCR PO STA (07:56)
[2017-02-18] MEDS: hydrOXYzine HCL 25 MG TAB PO SCH ×2 (08:05→21:00)
[2017-02-18] MEDS: PAROXETINE 30 MG TAB PO SCH (08:06)
[2017-02-18] MEDS: CARVEDILOL 6.25 MG TAB PO SCH ×2 (08:06→21:01)
[2017-02-18] MEDS: CIPROFLOXACIN 500 MG TAB PO SCH ×2 (08:06→21:00)
[2017-02-18] MEDS: POTASSIUM CHLR 10 MEQ / WTR 10 MEQ in PREMIXED WATER 100 ML IV SCH ×2 (08:18→11:22)
[2017-02-18 08:24] VITALS: BP 121/78; PULSE 60; TEMP 36.4; O2SAT 97
[2017-02-18 15:59] VITALS: BP 112/78; PULSE 62; TEMP 36.9; O2SAT 95
[2017-02-18] MEDS ORDERED: BISACODYL 5 MG TABEC PO ONE (17:00)
[2017-02-18] MEDS ORDERED: POLYETHYLENE (MIRALAX) 17 GM PACK PO ONE ×2 (17:00→21:00)
[2017-02-18] MEDS: TRAMADOL HCL 50 MG TAB PO PRN (17:41)
--- NOTE | 2017-02-18 18:19 | Progress Note ---
Internal Med Progress Note Date of Service: Feb 18, 2017. Provider Documentation: SUBJECTIVE: diarrhea resolved tolerating clears fine abdominal pain is better today afebrile await colonoscopy in am OBJECTIVE: Vital Signs-as noted below Exam: General-alert and awake and not in distress ENT- normal hearing Neck-no neck masses Lungs-cta b/l no wheezing no crackles present Heart-s1 and s2 heard regular rate and rhythm no murmurs Abdomen-soft BS present mild diffuse tender no distension Extremities- no edema no erythema Neuro-alert and awake moves extremities Lab data as noted below. ASSESSMENT & PLAN: This is a 46yo M with history of CVA (2011, residual L leg weakness) , s/p pacemaker, PTSD who presents with lower abdominal pain x 2 days. RLQ pain, hematochezia: CT abd pelvis without contrast- moderate wall thickening of cecum and ascending colon with mild wall thickening of the transverse colon colitis mesenteric US unremarkable c diff negative stool studies negative so far on cipro ct abd/pelvis with contrast-improving colitis Gi plan for colonoscopy tolerating clears await colonoscopy in am Left inguinal lymphadenopathy: Recent L thigh infection, received Augmentin x [address] abd/pelvis with mild left common iliac, external iliac, pelvic sidewall and inguinal lymphadenopathy with a partially necrotic/suppurative left pelvic sidewall node seen by ID and does not think its related to TB repeat ct scan some improvement in nodes needs followup H/o CVA: Occurred in 2011, went to OSH in [facility] Had PM placed during same hospitalization HAs Residual L leg weakness, has prosthetic device Holding aspirin in setting of hematochezia stable PTSD: on vistaril, paroxetine DVT Ppx: SCDs Code status: FULL PCP: Jey LOPEZ Dispo:To be determined. Plan [facility] once medically stable. Vital Signs: Date Time Temp Pulse Resp B/P (MAP) Pulse Ox O2 Delivery O2 Flow Rate FiO2 02/18/17 15:59 36.9 62 18 112/78 (89) 95 Room Air 02/18/17 15:40 Room Air 02/18/17 08:24 36.4 60 20 121/78 (92) 97 02/18/17 08:00 Room Air 02/18/17 00:00 Room Air 02/17/17 23:40 36.9 61 18 110/68 (82) 94 Room Air 02/17/17 21:00 Room Air 02/17/17 20:15 36.9 62 18 118/73 (88) 95 Room Air Lab Results: Results Past 24 Hours Test 02/18/17 05:55 Range/Units White Blood Count 6.45 4.8-10.8 K/uL Red Blood Count 4.28 4.7-6.1 M/uL Hemoglobin 13.2 14.0-18.0 g/dL Hematocrit 39.0 42-52 % Mean Corpuscular Volume 91.1 80-100 fL Mean Corpuscular Hemoglobin 30.8 25-34 pg Mean Corpuscular Hemoglobin Concent 33.8 32-36 g/dl Platelet Count 344 130-400 K/uL Mean Platelet Volume 9.5 7.4-10.4 fL Neutrophils (%) (Auto) 46.8 % Lymphocytes (%) (Auto) 31.8 % Monocytes (%) (Auto) 16.3 % Eosinophils (%) (Auto) 4.0 % Basophils (%) (Auto) 0.6 % Neutrophils # (Auto) 3.02 1.4-6.5 K/uL Lymphocytes # (Auto) 2.05 1.2-3.4 K/uL Monocytes # (Auto) 1.05 0.11-0.59 K/uL Eosinophils # (Auto) 0.26 0-0.5 K/uL Basophils # (Auto) 0.04 0-0.2 K/uL RDW Standard Deviation 45.5 36.4-46.3 fL RDW Coefficient of Variation 13.7 11.5-14.5 % Immature Granulocyte % (Auto) 0.5 % Immature Granulocyte # (Auto) 0.03 0.00-0.02 K/uL Sodium Level 137 136-145 mmol/L Potassium Level 2.8 3.5-5.1 mmol/L Chloride Level 104 98-107 mmol/L Carbon Dioxide Level 27 21-32 mmol/L Anion Gap 6.0 3-11 mmol/L Blood Urea Nitrogen 5 7-18 mg/dl Creatinine 0.73 0.60-1.40 mg/dl Est Creatinine Clear Calc Drug Dose 125.2 ml/min Estimated GFR () 127.1 Estimated GFR (Non- 109.7 BUN/Creatinine Ratio 6.5 10-20 Random Glucose 81 70-99 mg/dl Calcium Level 8.2 8.5-10.1 mg/dl Magnesium Level 2.1 1.8-2.4 mg/dl
[2017-02-18] MEDS: PRAZOSIN HCL 1 MG CAP PO SCH (21:00)
[2017-02-18 21:02] VITALS: BP 150/90; PULSE 64
[2017-02-19] VITALS (8 sets, daily range): BP systolic 116–135; BP diastolic 74–86; PULSE 59–83; TEMP 36.2–37; O2SAT 95–97
[2017-02-19 07:28] LABS: BASO % 0.6 %; BASO ABS # 0.04 K/uL (0-0.2); COMPLETE YES; HEMATOCRIT 40.2 % (42-52); LYMPH % 29.2 %; LYMPH ABS # 1.82 K/uL (1.2-3.4); MEAN CELL VOLUME 91.4 fL (80-100); MEAN CORPUSCULAR HEMOGLOBIN 31.6 pg (25-34); MEAN CORPUSCULAR HGB CONC 34.6 g/dl (32-36); MEAN PLATELET VOLUME 9.9 fL (7.4-10.4); MONO % 16.9 %; NEUT % 50.3 %; PLATELET COUNT 356 K/uL (130-400); WHITE BLOOD COUNT 6.23 K/uL (4.8-10.8)
[2017-02-19 07:46] LABS: CALCIUM 8.2 mg/dl (8.5-10.1); CREATININE 0.83 mg/dl (0.60-1.40); MAGNESIUM 2.1 mg/dl (1.8-2.4); POTASSIUM 3.2 mmol/L (3.5-5.1)
[2017-02-19] MEDS: SODIUM CHLORIDE 0.9% 1000ML 1,000 ML IV SCH (08:27)
[2017-02-19] MEDS: hydrOXYzine HCL 25 MG TAB PO SCH ×2 (09:49→20:50)
[2017-02-19] MEDS: PAROXETINE 30 MG TAB PO SCH (09:49)
[2017-02-19] MEDS: CARVEDILOL 6.25 MG TAB PO SCH ×2 (09:49→20:50)
[2017-02-19] MEDS: CIPROFLOXACIN 500 MG TAB PO SCH ×2 (09:49→20:49)
--- NOTE | 2017-02-19 10:07 | Progress Note ---
Subjective Date of Service: Feb 19, 2017. Subjective Pt evaluation today including: conversation w/ patient, physical exam, chart review, lab review less abd pain today, no f/c. no n/v/d, no bleeding overnight, for scope today. repeat ct with improved inflammation and decreased size of lymph nodes. remains on cipro, tolerating well. all remaining ros reviewed and are negative, all cultures negative. Problem List Medical Problems: (1) Colitis Status: Acute (2) GI bleed Status: Acute (3) Necrotizing inflammation of lymph node Status: Acute Objective Vital Signs Date Time Temp Pulse Resp B/P (MAP) Pulse Ox O2 Delivery O2 Flow Rate FiO2 02/19/17 08:10 36.7 83 16 117/74 96 Room Air 02/19/17 08:00 Room Air 02/19/17 07:02 36.7 83 16 117/74 (88) 96 Room Air 02/19/17 00:17 36.2 60 20 135/81 (99) 96 Room Air 02/19/17 00:15 Room Air 02/18/17 21:02 64 150/90 (110) 02/18/17 15:59 36.9 62 18 112/78 (89) 95 Room Air 02/18/17 15:40 Room Air Physical Exam General Appearance: WD/WN, no apparent distress, + mild distress Eyes: EOMI Neck: supple Respiratory/Chest: lungs clear, normal breath sounds, no respiratory distress Cardiovascular: regular rate, rhythm, no edema Abdomen: non tender, soft Extremities: non-tender, no pedal edema Neurologic/Psychiatric: alert, oriented x 3 Skin: normal color, no rash Laboratory Results Item Value Date Time C.difficile Toxin B Gene (PCR) - Final Complete 02/16/1714 Stool No C. difficile toxin B gene detected Shiga Toxin Test - Preliminary Resulted 02/16/1714 Stool No E. Coli shiga toxin 1 or shiga tox... Last 24 Hours Test 02/19/17 06:34 White Blood Count 6.23 K/uL Red Blood Count 4.40 M/uL Hemoglobin 13.9 g/dL Hematocrit 40.2 % Mean Corpuscular Volume 91.4 fL Mean Corpuscular Hemoglobin 31.6 pg Mean Corpuscular Hemoglobin Concent 34.6 g/dl Platelet Count 356 K/uL Mean Platelet Volume 9.9 fL Neutrophils (%) (Auto) 50.3 % Lymphocytes (%) (Auto) 29.2 % Monocytes (%) (Auto) 16.9 % Eosinophils (%) (Auto) 3.0 % Basophils (%) (Auto) 0.6 % Neutrophils # (Auto) 3.13 K/uL Lymphocytes # (Auto) 1.82 K/uL Monocytes # (Auto) 1.05 K/uL Eosinophils # (Auto) 0.19 K/uL Basophils # (Auto) 0.04 K/uL RDW Standard Deviation 45.5 fL RDW Coefficient of Variation 13.7 % Immature Granulocyte % (Auto) 0.0 % Immature Granulocyte # (Auto) 0.00 K/uL Sodium Level 138 mmol/L Potassium Level 3.2 mmol/L Chloride Level 105 mmol/L Carbon Dioxide Level 26 mmol/L Anion Gap 7.0 mmol/L Blood Urea Nitrogen 5 mg/dl Creatinine 0.83 mg/dl Est Creatinine Clear Calc Drug Dose 110.2 ml/min Estimated GFR () 120.6 Estimated GFR (Non- 104.0 BUN/Creatinine Ratio 6.0 Random Glucose 86 mg/dl Calcium Level 8.2 mg/dl Magnesium Level 2.1 mg/dl Assessment and Plan (1) Colitis Assessment & Plan: would continue cipro, total 7 days. no evidence of TB, nodes smaller on repeat ct scan, suggest acute process with rapid improvement. No additional input from ID at this time.
[2017-02-19] MEDS ORDERED: SODIUM CHLORIDE 0.9% 500ML 500 ML IV ONE (12:49)
--- NOTE | 2017-02-19 12:51 | Endo History and Physical ---
History & Physical Date of Service: Feb 19, 2017. Chief Complaint: Referring Physician: History of Present Illness Abdominal pain and abnormal CT scan showing LNs and colon wall thickening. Patient is for colonoscopy Past Surgical History Hx Cardiac Surgery: Yes (pacemaker 2011) Hx Abdominal Surgery: No Hx Post-Op Nausea and Vomiting: No Hx Cancer Surgery: No Social History Smoking Status: Light Tobacco Smoker Hx Substance Use: No Hx Alcohol Use: No Allergies Coded Allergies: Acetaminophen (Unverified Allergy, Unknown, ANAPHYLAXIS, 02/15/17) Meperidine (Unverified Allergy, Unknown, ANAPHYLAXIS, 02/15/17) Current Medications Reported Home Medications Medications Dose Route/Sig Max Daily Dose Days Date Category Dose Instructions Augmentin 875-125 mg (Amoxicillin & Pot Clavulanate) 1 Tab Tab 1 Tab PO BID 02/15/17 Reported Ventolin Hfa (Albuterol) 200 Puffs/01278 Mcg Aers 2-4 Puffs INH QID PRN 02/15/17 Reported Prazosin (Prazosin HCl) 1 Mg Cap 1 Mg PO HS 02/15/17 Reported Motrin (Ibuprofen) 600 Mg Tab 600 Mg PO BID PRN 02/15/17 Reported Paroxetine HCl (Paroxetine) 30 Mg Tab 30 Mg PO DAILY 02/15/17 Reported Vistaril (Hydroxyzine Pamoate) 50 Mg Cap 50 Mg PO BID 02/15/17 Reported PRN ITCH Lopid (Gemfibrozil) 600 Mg Tab 600 Mg PO BID 02/15/17 Reported Coreg (Carvedilol) 6.25 Mg Tab 6.25 Mg PO BID 02/15/17 Reported Aspirin 81 Mg Tab 81 Mg PO DAILY 02/15/17 Reported Vital Signs Weight (Kilograms): 79.700 Height (Feet): 5 Height (Inches): 7.00 Date Time Temp Pulse Resp B/P (MAP) Pulse Ox O2 Delivery O2 Flow Rate FiO2 02/19/17 11:57 36.9 60 20 116/77 (90) 99 Room Air 02/19/17 08:10 36.7 83 16 117/74 96 Room Air 02/19/17 08:00 Room Air 02/19/17 07:02 36.7 83 16 117/74 (88) 96 Room Air 02/19/17 00:17 36.2 60 20 135/81 (99) 96 Room Air 02/19/17 00:15 Room Air 02/18/17 21:02 64 150/90 (110) 02/18/17 15:59 36.9 62 18 112/78 (89) 95 Room Air 02/18/17 15:40 Room Air Physical Exam General Appearance: no apparent distress Respiratory/Chest: Auscultation: breath sounds normal Cardiovascular: Heart Auscultation: RRR Abdomen: Inspection & Palpation: soft, no tenderness, guarding & rebound Assessment and Plan Stable for colonoscopy. I explained the risk, benefit and alternative and he agrees.
[2017-02-19] MEDS ORDERED: LIDOCAINE HCL 2% 2 ML VIAL (20MG/ML) ONE (12:56)
[2017-02-19] MEDS ORDERED: PROPOFOL IV EMULSION 10 MG/ML 20 ML VIAL IV ONE (12:56)
--- NOTE | 2017-02-19 13:28 | GI REPORT ---
Procedure Date: 02/19/2017 12:50 PM Procedure: Colonoscopy Indications: Abnormal CT of the GI tract Medicines: Monitored Anesthesia Care Complications: No immediate complications. Estimated Blood Loss: Estimated blood loss: none. Procedure: Pre-Anesthesia Assessment: - Prior to the procedure, a History and Physical was performed, and patient medications and allergies were reviewed. The patient is competent. The risks and benefits of the procedure and the sedation options and risks were discussed with the patient. All questions were answered and informed consent was obtained. Patient identification and proposed procedure were verified by the physician, the nurse and the anesthesiologist in the procedure room. Mental Status Examination: alert and oriented. Airway Examination: normal oropharyngeal airway and neck mobility. Respiratory Examination: clear to auscultation. CV Examination: normal. ASA Grade Assessment: II - A patient with mild systemic disease. After reviewing the risks and benefits, the patient was deemed in satisfactory condition to undergo the procedure. The anesthesia plan was to use monitored anesthesia care (MAC). Immediately prior to administration of medications, the patient was re-assessed for adequacy to receive sedatives. The heart rate, respiratory rate, oxygen saturations, blood pressure, adequacy of pulmonary ventilation, and response to care were monitored throughout the procedure. The physical status of the patient was re-assessed after the procedure. After I obtained informed consent, the scope was passed under direct vision. Throughout the procedure, the patient's blood pressure, pulse, and oxygen saturations were monitored continuously. The Scope was introduced through the anus and advanced to the terminal ileum. The colonoscopy was performed without difficulty. The patient tolerated the procedure well. The quality of the bowel preparation was good. The terminal ileum, ileocecal valve, appendiceal orifice, and rectum were photographed. Scope insertion time was 5 minutes. Scope withdrawal time was 10 minutes. The total duration of the procedure was 15 minutes. Findings: The perianal and digital rectal examinations were normal. The terminal ileum appeared normal. Two sessile polyps were found in the rectum. The polyps were 6 mm in size. These polyps were removed with a cold snare. Resection and retrieval were complete. Verification of patient identification for the specimen was done by the physician and nurse using the patient's name and date. Non-bleeding internal hemorrhoids were found during retroflexion. The hemorrhoids were small. The exam was otherwise without abnormality. Impression: - The examined portion of the ileum was normal. - Two 6 mm polyps in the rectum, removed with a cold snare. Resected and retrieved. - Non-bleeding internal hemorrhoids. - The examination was otherwise normal. Recommendation: - Return patient to [facility] for ongoing care. - Await pathology results. - Repeat colonoscopy for surveillance based on pathology results. Jens Oakley MD 02/19/2017 1:27:50 PM This report has been signed electronically. Note Initiated On: 02/19/2017 12:50 PM I attest to the content of the Intraoperative Record and orders documented therein, exceptions below
--- NOTE | 2017-02-19 13:38 | Anesthesiology Progress Note ---
Anesthesia Post Op Note Date & Time Feb 19, 2017 at 13:38 Vital Signs Pain Intensity: 3.0 Vital Signs Past 12 Hours Date Time Temp Pulse Resp B/P (MAP) Pulse Ox O2 Delivery O2 Flow Rate FiO2 02/19/17 13:24 60 16 90/51 (64) 96 Room Air 02/19/17 11:57 36.9 60 20 116/77 (90) 99 Room Air 02/19/17 08:10 36.7 83 16 117/74 96 Room Air 02/19/17 08:00 Room Air 02/19/17 07:02 36.7 83 16 117/74 (88) 96 Room Air Notes Mental Status: alert / awake / arousable, participated in evaluation Pt Amnestic to Procedure: Yes Nausea / Vomiting: adequately controlled Pain: adequately controlled Airway Patency, RR, SpO2: stable & adequate BP & HR: stable & adequate Hydration State: stable & adequate Anesthetic Complications: no major complications apparent
[2017-02-19] MEDS ORDERED: POTASSIUM CHLORIDE 20 MEQ TABCR PO STA (15:03)
--- NOTE | 2017-02-19 18:53 | Progress Note ---
Internal Med Progress Note Date of Service: Feb 19, 2017. Provider Documentation: SUBJECTIVE: s/p colonoscopy today tolerating diet' has some abdominal discomfort afebrile no nausea OBJECTIVE: Vital Signs-as noted below Exam: General-alert and awake and not in distress ENT- normal hearing Neck-no neck masses Lungs-cta b/l no wheezing no crackles present Heart-s1 and s2 heard regular rate and rhythm no murmurs Abdomen-soft BS present mild diffuse tender no distension Extremities- no edema no erythema Neuro-alert and awake moves extremities Lab data as noted below. ASSESSMENT & PLAN: This is a 46yo M with history of CVA (2011, residual L leg weakness) , s/p pacemaker, PTSD who presents with lower abdominal pain x 2 days. RLQ pain, hematochezia: CT abd pelvis without contrast- moderate wall thickening of cecum and ascending colon with mild wall thickening of the transverse colon colitis mesenteric US unremarkable c diff negative stool studies negative so far on cipro to complete one week course ct abd/pelvis with contrast-improving colitis s/p colonoscopy today and s/p polypectomy hb stable advanced diet Left inguinal lymphadenopathy: Recent L thigh infection, received Augmentin x [address] abd/pelvis with mild left common iliac, external iliac, pelvic sidewall and inguinal lymphadenopathy with a partially necrotic/suppurative left pelvic sidewall node seen by ID and does not think its related to TB repeat ct scan some improvement in nodes needs followup H/o CVA: Occurred in 2011, went to OSH in [facility] Had PM placed during same hospitalization HAs Residual L leg weakness, has prosthetic device Holding aspirin in setting of hematochezia stable PTSD: on vistaril, paroxetine DVT Ppx: SCDs Code status: FULL PCP: Jey LOPEZ Dispo:To be determined. possible d/c in am Vital Signs: Date Time Temp Pulse Resp B/P (MAP) Pulse Ox O2 Delivery O2 Flow Rate FiO2 02/19/17 16:20 Room Air 02/19/17 16:16 36.6 60 21 127/76 (93) 97 Room Air 02/19/17 15:15 36.8 59 19 119/80 (93) 96 Room Air 02/19/17 14:46 36.3 61 16 121/86 96 Room Air 02/19/17 13:54 60 16 103/59 (74) 97 Room Air 02/19/17 13:39 60 16 104/56 (72) 97 Room Air 02/19/17 13:24 60 16 90/51 (64) 96 Room Air 02/19/17 11:57 36.9 60 20 116/77 (90) 99 Room Air 02/19/17 08:10 36.7 83 16 117/74 96 Room Air 02/19/17 08:00 Room Air 02/19/17 07:02 36.7 83 16 117/74 (88) 96 Room Air 02/19/17 00:17 36.2 60 20 135/81 (99) 96 Room Air 02/19/17 00:15 Room Air 02/18/17 21:02 64 150/90 (110) Lab Results: Results Past 24 Hours Test 02/19/17 06:34 Range/Units White Blood Count 6.23 4.8-10.8 K/uL Red Blood Count 4.40 4.7-6.1 M/uL Hemoglobin 13.9 14.0-18.0 g/dL Hematocrit 40.2 42-52 % Mean Corpuscular Volume 91.4 80-100 fL Mean Corpuscular Hemoglobin 31.6 25-34 pg Mean Corpuscular Hemoglobin Concent 34.6 32-36 g/dl Platelet Count 356 130-400 K/uL Mean Platelet Volume 9.9 7.4-10.4 fL Neutrophils (%) (Auto) 50.3 % Lymphocytes (%) (Auto) 29.2 % Monocytes (%) (Auto) 16.9 % Eosinophils (%) (Auto) 3.0 % Basophils (%) (Auto) 0.6 % Neutrophils # (Auto) 3.13 1.4-6.5 K/uL Lymphocytes # (Auto) 1.82 1.2-3.4 K/uL Monocytes # (Auto) 1.05 0.11-0.59 K/uL Eosinophils # (Auto) 0.19 0-0.5 K/uL Basophils # (Auto) 0.04 0-0.2 K/uL RDW Standard Deviation 45.5 36.4-46.3 fL RDW Coefficient of Variation 13.7 11.5-14.5 % Immature Granulocyte % (Auto) 0.0 % Immature Granulocyte # (Auto) 0.00 0.00-0.02 K/uL Sodium Level 138 136-145 mmol/L Potassium Level 3.2 3.5-5.1 mmol/L Chloride Level 105 98-107 mmol/L Carbon Dioxide Level 26 21-32 mmol/L Anion Gap 7.0 3-11 mmol/L Blood Urea Nitrogen 5 7-18 mg/dl Creatinine 0.83 0.60-1.40 mg/dl Est Creatinine Clear Calc Drug Dose 110.2 ml/min Estimated GFR () 120.6 Estimated GFR (Non- 104.0 BUN/Creatinine Ratio 6.0 10-20 Random Glucose 86 70-99 mg/dl Calcium Level 8.2 8.5-10.1 mg/dl Magnesium Level 2.1 1.8-2.4 mg/dl
[2017-02-19] MEDS: PRAZOSIN HCL 1 MG CAP PO SCH (20:50)
[2017-02-19] MEDS: TRAMADOL HCL 50 MG TAB PO PRN (20:51)
[2017-02-20] VITALS: O2SAT 95
[2017-02-20 05:53] LABS: BASO % 0.8 %; BASO ABS # 0.06 K/uL (0-0.2); COMPLETE YES; EOS % 4.2 %; HEMATOCRIT 42.8 % (42-52); IG% 0.4 %; LYMPH ABS # 2.34 K/uL (1.2-3.4); MEAN CELL VOLUME 91.8 fL (80-100); MEAN CORPUSCULAR HEMOGLOBIN 31.1 pg (25-34); MEAN CORPUSCULAR HGB CONC 33.9 g/dl (32-36); MEAN PLATELET VOLUME 9.8 fL (7.4-10.4); MONO % 12.9 %; NEUT % 51.7 %; PLATELET COUNT 333 K/uL (130-400); RED BLOOD COUNT 4.66 M/uL (4.7-6.1); WHITE BLOOD COUNT 7.81 K/uL (4.8-10.8)
[2017-02-20 06:28] LABS: BUN/CREATININE RATIO 14.7 (10-20); CALCIUM 8.6 mg/dl (8.5-10.1); CREATININE 0.83 mg/dl (0.60-1.40); MAGNESIUM 2.1 mg/dl (1.8-2.4); POTASSIUM 3.4 mmol/L (3.5-5.1)
[2017-02-20 08:06] VITALS: BP 109/58; PULSE 64; TEMP 36.4; O2SAT 95
[2017-02-20] MEDS: TRAMADOL HCL 50 MG TAB PO PRN ×3 (08:07→21:05)
[2017-02-20] MEDS: PAROXETINE 30 MG TAB PO SCH (08:07)
[2017-02-20] MEDS: hydrOXYzine HCL 25 MG TAB PO SCH ×2 (08:08→21:07)
[2017-02-20] MEDS: CIPROFLOXACIN 500 MG TAB PO SCH ×2 (08:08→21:06)
[2017-02-20] MEDS: CARVEDILOL 6.25 MG TAB PO SCH ×2 (08:08→21:06)
[2017-02-20] MEDS ORDERED: POTASSIUM CHLORIDE 10 MEQ TABCR PO STA (11:21)
--- NOTE | 2017-02-20 12:11 | Progress Note ---
Internal Med Progress Note Date of Service: Feb 20, 2017. Provider Documentation: SUBJECTIVE: s/p colonoscopy yesterday still has abdominal pain tolerating regular diet afebrile 'no sob OBJECTIVE: Vital Signs-as noted below Exam: General-alert and awake and not in distress ENT- normal hearing Neck-no neck masses Lungs-cta b/l no wheezing no crackles present Heart-s1 and s2 heard regular rate and rhythm no murmurs Abdomen-soft BS present mild diffuse tender more on right side no distension Extremities- no edema no erythema Neuro-alert and awake moves extremities Lab data as noted below. ASSESSMENT & PLAN: This is a 46yo M with history of CVA (2011, residual L leg weakness) , s/p pacemaker, PTSD who presents with lower abdominal pain x 2 days. RLQ pain, hematochezia: CT abd pelvis without contrast- moderate wall thickening of cecum and ascending colon with mild wall thickening of the transverse colon colitis mesenteric US unremarkable c diff negative stool studies negative so far on cipro to complete one week course ct abd/pelvis with contrast-improving colitis s/p colonoscopy today and s/p polypectomy- f/u biopsy results hb stable tolerating regular diet Left inguinal lymphadenopathy: Recent L thigh infection, received Augmentin x [address] abd/pelvis with mild left common iliac, external iliac, pelvic sidewall and inguinal lymphadenopathy with a partially necrotic/suppurative left pelvic sidewall node seen by ID and does not think its related to TB repeat ct scan some improvement in nodes still has abdominal pain will consult surgery for nay biposy or followup ct scan H/o CVA: Occurred in 2011, went to OSH in [facility] Had PM placed during same hospitalization HAs Residual L leg weakness, has prosthetic device Holding aspirin in setting of hematochezia stable PTSD: on vistaril, paroxetine DVT Ppx: SCDs Code status: FULL PCP: Jey LOPEZ Dispo:To be determined. possible d/c in am if no other procedures planned Vital Signs: Date Time Temp Pulse Resp B/P (MAP) Pulse Ox O2 Delivery O2 Flow Rate FiO2 02/20/17 08:15 Room Air 02/20/17 08:06 36.4 64 18 109/58 (75) 95 Room Air 02/20/17 00:00 95 Room Air 02/19/17 22:33 37.0 63 22 116/74 (88) 95 Room Air 02/19/17 19:14 36.5 66 18 122/78 (93) 95 Room Air 02/19/17 16:20 Room Air 02/19/17 16:16 36.6 60 21 127/76 (93) 97 Room Air 02/19/17 15:15 36.8 59 19 119/80 (93) 96 Room Air 02/19/17 14:46 36.3 61 16 121/86 96 Room Air 02/19/17 13:54 60 16 103/59 (74) 97 Room Air 02/19/17 13:39 60 16 104/56 (72) 97 Room Air 02/19/17 13:24 60 16 90/51 (64) 96 Room Air Lab Results: Results Past 24 Hours Test 02/20/17 05:35 Range/Units White Blood Count 7.81 4.8-10.8 K/uL Red Blood Count 4.66 4.7-6.1 M/uL Hemoglobin 14.5 14.0-18.0 g/dL Hematocrit 42.8 42-52 % Mean Corpuscular Volume 91.8 80-100 fL Mean Corpuscular Hemoglobin 31.1 25-34 pg Mean Corpuscular Hemoglobin Concent 33.9 32-36 g/dl Platelet Count 333 130-400 K/uL Mean Platelet Volume 9.8 7.4-10.4 fL Neutrophils (%) (Auto) 51.7 % Lymphocytes (%) (Auto) 30.0 % Monocytes (%) (Auto) 12.9 % Eosinophils (%) (Auto) 4.2 % Basophils (%) (Auto) 0.8 % Neutrophils # (Auto) 4.04 1.4-6.5 K/uL Lymphocytes # (Auto) 2.34 1.2-3.4 K/uL Monocytes # (Auto) 1.01 0.11-0.59 K/uL Eosinophils # (Auto) 0.33 0-0.5 K/uL Basophils # (Auto) 0.06 0-0.2 K/uL RDW Standard Deviation 46.1 36.4-46.3 fL RDW Coefficient of Variation 13.8 11.5-14.5 % Immature Granulocyte % (Auto) 0.4 % Immature Granulocyte # (Auto) 0.03 0.00-0.02 K/uL Sodium Level 137 136-145 mmol/L Potassium Level 3.4 3.5-5.1 mmol/L Chloride Level 102 98-107 mmol/L Carbon Dioxide Level 29 21-32 mmol/L Anion Gap 6.0 3-11 mmol/L Blood Urea Nitrogen 12 7-18 mg/dl Creatinine 0.83 0.60-1.40 mg/dl Est Creatinine Clear Calc Drug Dose 110.2 ml/min Estimated GFR () 120.6 Estimated GFR (Non- 104.0 BUN/Creatinine Ratio 14.7 10-20 Random Glucose 98 70-99 mg/dl Calcium Level 8.6 8.5-10.1 mg/dl Magnesium Level 2.1 1.8-2.4 mg/dl
--- NOTE | 2017-02-20 13:07 | Medical Consult ---
Consultation Date of Consultation: Feb 20, 2017. Attending Physician: Aaron Campos MD History of Present Illness 46 y/o male inmate admitted 5 days ago for RLQ pain, rectal bleeding. Initial CT showed some thickening of ascending & proximal transverse colon. Stool studies were negative, had colonoscopy today with rectal polypectomy x2 and otherwise unremarkable. A few days prior to admission his left thigh was swollen , red and he felt feverish. He was given Augmentin for a few days before he quit taking because of the abdominal symptoms. No known injury to LLE, he does have some weakness in the left foot after CVA. He did notice some lumps in his groin when the thigh was inflamed, these have improved and he has one small mass he can still palpate. 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) Allergies Coded Allergies: Acetaminophen (Unverified Allergy, Unknown, ANAPHYLAXIS, 02/15/17) Meperidine (Unverified Allergy, Unknown, ANAPHYLAXIS, 02/15/17) Current Inpatient Medications Current Inpatient Medications Medications (Trade) Dose Ordered Sig/Josefina Route Start Time Stop Time Status Last Admin Dose Admin Ondansetron HCl (Zofran Inj) 4 mg Q6H PRN IV 02/15/17 21:15 03/17/17 21:14 Tramadol HCl (Ultram Tab) 50 mg Q4 PRN PO 02/15/17 21:15 03/17/17 21:14 02/20/17 08:07 50 MG Albuterol (Ventolin Hfa Inhaler) 2 puffs QID PRN INH 02/15/17 22:00 03/17/17 21:59 Carvedilol (Coreg Tab) 6.25 mg BID PO 02/16/17 09:00 03/18/17 08:59 02/20/17 08:08 6.25 MG Hydroxyzine HCl (Vistaril Tab) 50 mg BID PO 02/16/17 09:00 03/18/17 08:59 02/20/17 08:08 50 MG Paroxetine HCl (pAXil) 30 mg DAILY PO 02/16/17 09:00 03/18/17 08:59 02/20/17 08:07 30 MG Prazosin HCl (Prazosin) 1 mg HS PO 02/15/17 23:00 03/17/17 22:59 02/19/17 20:50 1 MG Ciprofloxacin (Cipro Tab) 500 mg BID PO 02/16/17 21:00 02/26/17 20:59 02/20/17 08:08 500 MG Ioversol (Optiray 320) 100 ml UD PRN IV 02/16/17 18:45 02/20/17 18:44 Review of Systems Constitutional: No chills, No sweats Physical Exam Date Time Temp Pulse Resp B/P (MAP) Pulse Ox O2 Delivery O2 Flow Rate FiO2 02/20/17 08:15 Room Air 02/20/17 08:06 36.4 64 18 109/58 (75) 95 Room Air 02/20/17 00:00 95 Room Air 02/19/17 22:33 37.0 63 22 116/74 (88) 95 Room Air 02/19/17 19:14 36.5 66 18 122/78 (93) 95 Room Air 02/19/17 16:20 Room Air 02/19/17 16:16 36.6 60 21 127/76 (93) 97 Room Air 02/19/17 15:15 36.8 59 19 119/80 (93) 96 Room Air 02/19/17 14:46 36.3 61 16 121/86 96 Room Air 02/19/17 13:54 60 16 103/59 (74) 97 Room Air 02/19/17 13:39 60 16 104/56 (72) 97 Room Air 02/19/17 13:24 60 16 90/51 (64) 96 Room Air General Appearance: no apparent distress Extremities/Musculoskelatal: normal inspection, non-tender (left thigh, no erythema), + pertinent finding (small soft left inguinal node <1cm) Laboratory Results Last 24 Hours Test 02/20/17 05:35 White Blood Count 7.81 K/uL Red Blood Count 4.66 M/uL Hemoglobin 14.5 g/dL Hematocrit 42.8 % Mean Corpuscular Volume 91.8 fL Mean Corpuscular Hemoglobin 31.1 pg Mean Corpuscular Hemoglobin Concent 33.9 g/dl Platelet Count 333 K/uL Mean Platelet Volume 9.8 fL Neutrophils (%) (Auto) 51.7 % Lymphocytes (%) (Auto) 30.0 % Monocytes (%) (Auto) 12.9 % Eosinophils (%) (Auto) 4.2 % Basophils (%) (Auto) 0.8 % Neutrophils # (Auto) 4.04 K/uL Lymphocytes # (Auto) 2.34 K/uL Monocytes # (Auto) 1.01 K/uL Eosinophils # (Auto) 0.33 K/uL Basophils # (Auto) 0.06 K/uL RDW Standard Deviation 46.1 fL RDW Coefficient of Variation 13.8 % Immature Granulocyte % (Auto) 0.4 % Immature Granulocyte # (Auto) 0.03 K/uL Sodium Level 137 mmol/L Potassium Level 3.4 mmol/L Chloride Level 102 mmol/L Carbon Dioxide Level 29 mmol/L Anion Gap 6.0 mmol/L Blood Urea Nitrogen 12 mg/dl Creatinine 0.83 mg/dl Est Creatinine Clear Calc Drug Dose 110.2 ml/min Estimated GFR () 120.6 Estimated GFR (Non- 104.0 BUN/Creatinine Ratio 14.7 Random Glucose 98 mg/dl Calcium Level 8.6 mg/dl Magnesium Level 2.1 mg/dl Assessment & Plan recent left thigh cellulitis colitis Cellulitis likely the cause of adenopathy, would not pursue any further at this time. Could consider ultrasound of left groin in a few weeks and consider FNA if not resolved.
[2017-02-20 15:23] VITALS: BP 112/73; PULSE 67; TEMP 37.2; O2SAT 96
[2017-02-20] MEDS: PRAZOSIN HCL 1 MG CAP PO SCH (21:06)
[2017-02-20 21:09] VITALS: BP 120/77; PULSE 75; O2SAT 97
[2017-02-20 22:34] VITALS: BP 133/83; PULSE 74; TEMP 36.7; O2SAT 95
[2017-02-21 07:03] VITALS: BP 117/75; PULSE 62; TEMP 36.7; O2SAT 96
[2017-02-21] MEDS: PAROXETINE 30 MG TAB PO SCH (07:33)
[2017-02-21] MEDS: CIPROFLOXACIN 500 MG TAB PO SCH ×2 (07:33→18:27)
[2017-02-21] MEDS: CARVEDILOL 6.25 MG TAB PO SCH ×2 (07:33→18:28)
[2017-02-21] MEDS: hydrOXYzine HCL 25 MG TAB PO SCH ×2 (07:33→18:25)
[2017-02-21 07:59] LABS: BUN/CREATININE RATIO 23.1 (10-20); CALCIUM 8.3 mg/dl (8.5-10.1); CREATININE 0.85 mg/dl (0.60-1.40); POTASSIUM 3.2 mmol/L (3.5-5.1)
[2017-02-21 08:02] LABS: ALB/GLOB RATIO 0.7 (0.9-2)
[2017-02-21] MEDS ORDERED: POTASSIUM CHLORIDE 20 MEQ TABCR PO STA (09:22)
[2017-02-21] MEDS: TRAMADOL HCL 50 MG TAB PO PRN ×2 (14:17→18:27)
[2017-02-21 15:26] VITALS: BP 116/71; PULSE 61; TEMP 36.9; O2SAT 96
[2017-02-21] MEDS ORDERED: ULT50X PO (15:26)
[2017-02-21] MEDS ORDERED: CPR500 PO (15:28)
--- NOTE | 2017-02-21 15:36 | Progress Note ---
Internal Med Progress Note Date of Service: Feb 21, 2017. Provider Documentation: SUBJECTIVE: Patient still having right sided abdominal discomfort especially when bearing down to make bowel movements.Describes normal stool OBJECTIVE: General-alert and awake and not in distress ENT- normal hearing Neck-no neck masses Lungs-cta b/l no wheezing no crackles present Heart-s1 and s2 heard regular rate and rhythm no murmurs Abdomen-soft BS present mild diffuse tender more on right side no distension Extremities- no edema no erythema Neuro-alert and awake moves extremities ASSESSMENT & PLAN: This is a 46yo M with history of CVA (2011, residual L leg weakness) , s/p pacemaker, PTSD who presents with lower abdominal pain x 2 days. RLQ pain, hematochezia: due to colitis CT abdomen 1. Decreased wall thickening throughout the cecum, ascending and transverse colon suggests resolving colitis. 2. Persistent mildly decreased size of the left iliac and pelvic sidewall adenopathy. Left inguinal adenopathy is unchanged. These findings may be reactive, however metastasis or lymphoproliferative disorder are additional considerations. Follow-up recommended. 3. No bowel obstruction. 4. Normal appendix. Abdominal Ultrasound: Patent major mesenteric vessels without evidence of a hemodynamically significant stenosis s/p colonoscopy - The examined portion of the ileum was normal. - Two 6 mm polyps in the rectum, removed with a cold snare. Resected and retrieved. - Non-bleeding internal hemorrhoids. Pathology results of hyperplastic polyps only c diff negative stool studies negative on ciprofloxacin to complete one week course to be finished on 02/23/17 Left inguinal lymphadenopathy: Recent L thigh infection and had received Augmentin x 3 days prior to this hospital stay CT abd/pelvis with mild left common iliac, external iliac, pelvic sidewall and inguinal lymphadenopathy with a partially necrotic/suppurative left pelvic sidewall node seen by ID and does not think its related to TB repeat ct scan some improvement in nodes still has abdominal pain, Surgery consulted Surgery recommendations: "likely the cause of adenopathy, would not pursue any further at this time. Could consider ultrasound of left groin in a few weeks and consider FNA if not resolved" H/o CVA: Occurred in 2011, went to OSH in [facility] Had PM placed during same hospitalization HAs Residual L leg weakness, has prosthetic device can restart aspirin as stool is normal PTSD: on vistaril, paroxetine Vital Signs: Date Time Temp Pulse Resp B/P (MAP) Pulse Ox O2 Delivery O2 Flow Rate FiO2 02/21/17 15:26 36.9 61 21 116/71 (86) 96 Room Air 02/21/17 08:15 Room Air 02/21/17 07:03 36.7 62 16 117/75 (89) 96 Room Air 02/21/17 00:15 Room Air 02/20/17 22:34 36.7 74 20 133/83 (100) 95 Room Air 02/20/17 21:09 75 120/77 (91) 97 Room Air 02/20/17 16:10 Room Air Lab Results: Results Past 24 Hours Test 02/21/17 07:14 02/21/17 13:19 Range/Units Sodium Level 136 136-145 mmol/L Potassium Level 3.2 4.2 3.5-5.1 mmol/L Chloride Level 103 98-107 mmol/L Carbon Dioxide Level 25 21-32 mmol/L Anion Gap 8.0 3-11 mmol/L Blood Urea Nitrogen 20 7-18 mg/dl Creatinine 0.85 0.60-1.40 mg/dl Est Creatinine Clear Calc Drug Dose 107.6 ml/min Estimated GFR () 119.4 Estimated GFR (Non- 103.0 BUN/Creatinine Ratio 23.1 10-20 Random Glucose 97 70-99 mg/dl Calcium Level 8.3 8.5-10.1 mg/dl Total Bilirubin 0.2 0.2-1 mg/dl Aspartate Amino Transf (AST/SGOT) 22 15-37 U/L Alanine Aminotransferase (ALT/SGPT) 42 12-78 U/L Alkaline Phosphatase 65 45-117 U/L Total Protein 7.7 6.4-8.2 gm/dl Albumin 3.3 3.4-5.0 gm/dl Globulin 4.4 2.5-4.0 gm/dl Albumin/Globulin Ratio 0.7 0.9-2
--- NOTE | 2017-02-21 15:48 | Discharge Instructions ---
Discharge Instructions Date of Service Feb 21, 2017. Admission Reason for Admission: Hematochezia, Lower Abdominal Pain Discharge Discharge Diagnosis / Problem: colitis, hyperlastic polyps, inguinal lymphadenopathy, abdominal pain Discharge Goals Goal(s): Decrease discomfort, Improve function Activity Recommendations Activity Limitations: per Instructions/Follow-up section Shower/Bathe: no limitations . Instructions / Follow-Up Instructions / Follow-Up This is a 46yo M with history of CVA (2011, residual L leg weakness) , s/p pacemaker, PTSD who presents with lower abdominal pain x 2 days. RLQ pain, hematochezia: due to colitis CT abdomen 1. Decreased wall thickening throughout the cecum, ascending and transverse colon suggests resolving colitis. 2. Persistent mildly decreased size of the left iliac and pelvic sidewall adenopathy. Left inguinal adenopathy is unchanged. These findings may be reactive, however metastasis or lymphoproliferative disorder are additional considerations. Follow-up recommended. 3. No bowel obstruction. 4. Normal appendix. Abdominal Ultrasound: Patent major mesenteric vessels without evidence of a hemodynamically significant stenosis s/p colonoscopy - The examined portion of the ileum was normal. - Two 6 mm polyps in the rectum, removed with a cold snare. Resected and retrieved. - Non-bleeding internal hemorrhoids. Pathology results of hyperplastic polyps only c diff negative stool studies negative on ciprofloxacin to complete one week course to be finished on 02/23/17 Left inguinal lymphadenopathy: Recent L thigh infection and had received Augmentin x 3 days prior to this hospital stay CT abd/pelvis with mild left common iliac, external iliac, pelvic sidewall and inguinal lymphadenopathy with a partially necrotic/suppurative left pelvic sidewall node seen by ID and does not think its related to TB repeat ct scan some improvement in nodes still has abdominal pain, Surgery consulted Surgery recommendations: "likely the cause of adenopathy, would not pursue any further at this time. Could consider ultrasound of left groin in a few weeks and consider FNA if not resolved" H/o CVA: Occurred in 2011, went to OSH in [facility] Had PM placed during same hospitalization HAs Residual L leg weakness, has prosthetic device can restart aspirin as stool is normal PTSD: on vistaril, paroxetine Current Hospital Diet Patient's current hospital diet: AHA Diet (Heart Healthy) Discharge Diet Recommended Diet: AHA Diet (Heart Healthy) Pending Studies Studies pending at discharge: no Laboratory Results 02/20/17 05:35 Red Blood Count 4.66, Mean Corpuscular Volume 91.8, Mean Corpuscular Hemoglobin 31.1, Mean Corpuscular Hemoglobin Concent 33.9, Mean Platelet Volume 9.8, Neutrophils (%) (Auto) 51.7, Lymphocytes (%) (Auto) 30.0, Monocytes (%) (Auto) 12.9, Eosinophils (%) (Auto) 4.2, Basophils (%) (Auto) 0.8, Neutrophils # (Auto ) 4.04, Lymphocytes # (Auto) 2.34, Monocytes # (Auto) 1.01, Eosinophils # (Auto ) 0.33, Basophils # (Auto) 0.06 02/21/17 07:14 02/21/17 13:19 Test 02/15/17 18:22 02/15/17 18:37 02/15/17 20:01 02/16/17 00:15 Nucleated RBC Absolute Count (auto) 0.00 K/uL (0-0) Nucleated Red Blood Cells % 0.0 % Peripheral Blood Smear Path Consult Direct Bilirubin 0.2 mg/dl (0-0.2) Lipase 138 U/L (73-393) Prothrombin Time 10.8 SECONDS (9.0-12.0) Prothromb Time International Ratio 1.0 (0.9-1.1) Activated Partial Thromboplast Time 27.0 SECONDS (21.0-31.0) Partial Thromboplastin Ratio 1.0 Lactic Acid Level 0.9 mmol/L (0.4-2.0) Urine Color YELLOW Urine Appearance CLEAR (CLEAR) Urine pH 5.5 (4.5-7.5) Urine Specific Jackson > 1.045 (1.000-1.030) Urine Protein NEG (NEG) Urine Glucose (UA) NEG (NEG) Urine Ketones 1+ (NEG) Urine Occult Blood NEG (NEG) Urine Nitrite NEG (NEG) Urine Bilirubin NEG (NEG) Urine Urobilinogen NEG (NEG) Urine Leukocyte Esterase NEG (NEG) Test 02/20/17 05:35 02/21/17 07:14 White Blood Count 7.81 K/uL (4.8-10.8) Red Blood Count 4.66 M/uL (4.7-6.1) Hemoglobin 14.5 g/dL (14.0-18.0) Hematocrit 42.8 % (42-52) Mean Corpuscular Volume 91.8 fL (80-100) Mean Corpuscular Hemoglobin 31.1 pg (25-34) Mean Corpuscular Hemoglobin Concent 33.9 g/dl (32-36) Platelet Count 333 K/uL (130-400) Mean Platelet Volume 9.8 fL (7.4-10.4) Neutrophils (%) (Auto) 51.7 % Lymphocytes (%) (Auto) 30.0 % Monocytes (%) (Auto) 12.9 % Eosinophils (%) (Auto) 4.2 % Basophils (%) (Auto) 0.8 % Neutrophils # (Auto) 4.04 K/uL (1.4-6.5) Lymphocytes # (Auto) 2.34 K/uL (1.2-3.4) Monocytes # (Auto) 1.01 K/uL (0.11-0.59) Eosinophils # (Auto) 0.33 K/uL (0-0.5) Basophils # (Auto) 0.06 K/uL (0-0.2) RDW Standard Deviation 46.1 fL (36.4-46.3) RDW Coefficient of Variation 13.8 % (11.5-14.5) Immature Granulocyte % (Auto) 0.4 % Immature Granulocyte # (Auto) 0.03 K/uL (0.00-0.02) Magnesium Level 2.1 mg/dl (1.8-2.4) Anion Gap 8.0 mmol/L (3-11) Est Creatinine Clear Calc Drug Dose 107.6 ml/min Estimated GFR () 119.4 Estimated GFR (Non- 103.0 BUN/Creatinine Ratio 23.1 (10-20) Calcium Level 8.3 mg/dl (8.5-10.1) Total Bilirubin 0.2 mg/dl (0.2-1) Aspartate Amino Transf (AST/SGOT) 22 U/L (15-37) Alanine Aminotransferase (ALT/SGPT) 42 U/L (12-78) Alkaline Phosphatase 65 U/L (45-117) Total Protein 7.7 gm/dl (6.4-8.2) Albumin 3.3 gm/dl (3.4-5.0) Globulin 4.4 gm/dl (2.5-4.0) Albumin/Globulin Ratio 0.7 (0.9-2) Date/Time Source Procedure Growth Status 02/16/17 00:15 Nasal MRSA DNA Surveillance Screen - Final Specimen Negative for MRSA by DNA Probe Complete 02/16/17 00:15 Stool C.difficile Toxin B Gene (PCR) - Final No C. difficile toxin B gene detected Complete Medical Emergencies . Who to Call and When: Medical Emergencies: If at any time you feel your situation is an emergency, please call 911 immediately. . Non-Emergent Contact Non-Emergency issues call your: Primary Care Provider . . "Provider Documentation" section prepared by Patrice Sims. . VTE Core Measure Inpt VTE Proph given/why not?: SCD's
--- NOTE | 2017-02-21 15:50 | Discharge Summary ---
Discharge Summary Date of Service Feb 21, 2017. Discharge Summary Admission Date: Feb 15, 2017 at 21:07 Discharge Date: Feb 21, 2017 Discharge Disposition: Home ([facility]) Principal Diagnosis: colitis, hyperlastic polyps, inguinal lymphadenopathy, abdominal pain Medication Reconciliation New Medications: Ciprofloxacin (Ciprofloxacin HCl) 500 Mg Tab 500 MG PO BID for 2 Days, #4 TAB Tramadol HCl (Tramadol HCl) 50 Mg Tab 50 MG PO Q4 PRN for Pain for 5 Days, #30 TAB Continued Medications: Albuterol Hfa (Ventolin Hfa) 200 Puffs/77746 Mcg Aers 2-4 PUFFS INH QID PRN for Shortness of Breath, INHALER Aspirin (Aspirin) 81 Mg Tab 81 MG PO DAILY Carvedilol (Coreg) 6.25 Mg Tab 6.25 MG PO BID, TAB Gemfibrozil (Lopid) 600 Mg Tab 600 MG PO BID, TAB Hydroxyzine Pamoate (Vistaril) 50 Mg Cap 50 MG PO BID, CAP PRN ITCH Ibuprofen (Motrin) 600 Mg Tab 600 MG PO BID PRN for Pain, TAB Paroxetine (Paroxetine HCl) 30 Mg Tab 30 MG PO DAILY Prazosin Hcl (Prazosin) 1 Mg Cap 1 MG PO HS, CAP Discontinued Medications: Amoxicillin & Pot Clavulanate (Augmentin 875-125 mg) 1 Tab Tab 1 TAB PO BID, #14 TAB Admission Information HPI (per Admitting provider): This is a 46yo M with history of CVA (2011, residual L leg weakness) , s/p pacemaker, PTSD who presents with lower abdominal pain x 2 days. Describes pain as a non-radiating pulling sensation in his RLQ. Also endorses associated bright red blood per rectum over the past few days. Denies any history of GI bleed, hemorrhoids or abdominal surgeries. Five days ago, patient was diagnosed with an infection of his left thigh. States that the groin area was red and painful and was associated with subjective fever and chills. Patient was started on Augmentin at [facility]. Once abdominal pain and rectal bleeding began 2 days later, he stopped taking the antibiotic in case it was causing his new symptoms. Currently denies any fever, chills, lightheadedness, nausea, vomiting, hematemesis, dysuria or melena. Physical Exam (per Admitting): General Appearance: WD/WN, no apparent distress Head: normocephalic, atraumatic Eyes: normal inspection, PERRL, sclerae normal ENT: normal ENT inspection, hearing grossly normal, pharynx normal Neck: supple, no adenopathy, trachea midline Respiratory/Chest: chest non-tender, lungs clear, normal breath sounds, no respiratory distress, no accessory muscle use Cardiovascular: regular rate, rhythm, no murmur, normal peripheral pulses Abdomen/GI: soft (non-distended ), no organomegaly, + tenderness (Moderate TTP of RLQ) Extremities/Musculoskelatal: no calf tenderness, no pedal edema, + pertinent finding (L ankle edema (chronic), L inguinal area with mild erythema and lymphadenopathy) Neurologic/Psych: no motor/sensory deficits, alert, normal mood/affect, oriented x 3 Skin: normal color, warm/dry Hospital Course This is a 46yo M with history of CVA (2011, residual L leg weakness) , s/p pacemaker, PTSD who presents with lower abdominal pain x 2 days. RLQ pain, hematochezia: due to colitis CT abdomen 1. Decreased wall thickening throughout the cecum, ascending and transverse colon suggests resolving colitis. 2. Persistent mildly decreased size of the left iliac and pelvic sidewall adenopathy. Left inguinal adenopathy is unchanged. These findings may be reactive, however metastasis or lymphoproliferative disorder are additional considerations. Follow-up recommended. 3. No bowel obstruction. 4. Normal appendix. Abdominal Ultrasound: Patent major mesenteric vessels without evidence of a hemodynamically significant stenosis s/p colonoscopy - The examined portion of the ileum was normal. - Two 6 mm polyps in the rectum, removed with a cold snare. Resected and retrieved. - Non-bleeding internal hemorrhoids. Pathology results of hyperplastic polyps only c diff negative stool studies negative on ciprofloxacin to complete one week course to be finished on 02/23/17 Left inguinal lymphadenopathy: Recent L thigh infection and had received Augmentin x 3 days prior to this hospital stay CT abd/pelvis with mild left common iliac, external iliac, pelvic sidewall and inguinal lymphadenopathy with a partially necrotic/suppurative left pelvic sidewall node seen by ID and does not think its related to TB repeat ct scan some improvement in nodes still has abdominal pain, Surgery consulted Surgery recommendations: "likely the cause of adenopathy, would not pursue any further at this time. Could consider ultrasound of left groin in a few weeks and consider FNA if not resolved" H/o CVA: Occurred in 2011, went to OSH in [place] Had PM placed during same hospitalization HAs Residual L leg weakness, has prosthetic device can restart aspirin as stool is normal PTSD: on vistaril, paroxetine Total time spent on discharge = This includes examination of the patient, discharge planning, medication reconciliation, and communication with other providers. Discharge Instructions see above
[2017-02-21 16:25] VITALS: BP 116/71; PULSE 61; TEMP 36.9; O2SAT 96
[2017-02-21] MEDS: PRAZOSIN HCL 1 MG CAP PO SCH (18:27)
[2017-02-21 18:29] VITALS: BP 128/68; PULSE 86
== END 2017-02-21 19:06 | disposition home or self-care (01) | DRG 392 ==
LOC: C.EDB 17:42 → C.MS2W 21:07 → EDBEDREQ 21:11 → ENRESERV 21:50
PROVIDERS: ADMIT Internal Medicine; ATTEND Hospitalist
PROC: 0DJD8ZZ Inspection of Lower Intestinal Tract, Via Natural or Artificial Opening Endoscopic (ICD-10-PCS; principal; 2017-02-19 11:53)
DX: K52.9 Noninfective gastroenteritis and colitis, unspecified (principal); K92.2 Gastrointestinal hemorrhage, unspecified; K64.8 Other hemorrhoids; K63.5 Polyp of colon; E78.5 Hyperlipidemia, unspecified; F43.10 Post-traumatic stress disorder, unspecified; F17.200 Nicotine dependence, unspecified, uncomplicated; I88.9 Nonspecific lymphadenitis, unspecified; Z86.73 Personal history of transient ischemic attack (TIA), and cerebral infarction without residual deficits; Z95.0 Presence of cardiac pacemaker

== ENCOUNTER 2017-05-11 21:32 | Inpatient (IN) | payer OTHER ==
[~2017-05-11] VITALS: Ht 172.7 cm; Wt 84.7 kg
[~2017-05-11 21:32] MED LIST: ASPI-461 PO; CARV6.25 PO; GEMF600T3 PO; HYDR50CA2 PO; IBUP600T44 PO; LDDP5 TD; PARO30TA5 PO; PRAZ1CAP10 PO; VNTHFA/IN INH
[2017-05-11] MEDS ORDERED: KETOROLAC TROMETHAMINE 30 MG/ML VIAL IV STA (22:20)
[2017-05-11] MEDS ORDERED: ONDANSETRON INJ 2 MG/ML 2 ML VIAL IV STA (22:20)
[2017-05-11] MEDS ORDERED: SODIUM CHLORIDE 0.9% 1000ML 1,000 ML IV STA (22:20)
--- NOTE | 2017-05-11 22:28 | EMERGENCY ROOM VISIT NOTE ---
History Report prepared by Ady: Magno Trevino Under the Supervision of: Dr. Ubaldo Rivera M.D. First contact with patient: 21:52 Chief Complaint: WOUND INFECTION Stated Complaint: POST OP SITE SWOLLEN RED AND WARM Nursing Triage Summary: Had lymphectomy in left leg in March. Had stitches out of incision in left inguinal area last week. Now has edema to suture site for past day. Pain, dizziness, erythema to site. 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 Pt states he had surgery to his left leg around two months ago and had his sutures removed. He notes it is now inflamed, red, and painful to the touch. Pt tried medication he was given and Motrin, nothing is helping. Positive fever, nausea, vomiting. Negative trouble with urination or defecation, pain in penis, pain in testicles, swelling in testicles , abdominal pain. Review of EMR showed the patient was recently discharged on 04/21 after having a left inguinal node excision and biopsy. Source of History: patient Onset: about two months ago Position: leg (left, upper) Quality: other (incision) Timing: worsening Modifying Factors (Worsening): other (painful when touched) Associated Symptoms: + fevers, + nausea, + vomiting, No abdominal pain Note: Denies: trouble urinating or defecating, pain in his penis, pain in testicles, swelling in testicles Review of Systems See HPI for pertinent positives and negatives. A total of ten systems were reviewed and were otherwise negative. Past Medical & Surgical Medical Problems: (1) H/O: CVA (cerebrovascular accident) (2) HLD (hyperlipidemia) (3) Inguinal lymphadenopathy (4) PTSD (post-traumatic stress disorder) Surgical Problems: (1) S/P placement of cardiac pacemaker Family History Cancer Diabetes mellitus GRANDMOTHER FH: asthma Heart disease Hypertension Social History Smoking Status: Current Every Day Smoker Drug Use: none Marital Status: single Housing Status: other Occupation Status: other Current/Historical Medications Scheduled Aspirin (Aspirin), 81 MG PO DAILY Carvedilol (Coreg), 6.25 MG PO BID Gemfibrozil (Lopid), 600 MG PO BID Hydroxyzine Pamoate (Vistaril), 50 MG PO BID Naproxen (Naprosyn), 500 MG PO BID Paroxetine (Paroxetine HCl), 30 MG PO DAILY Prazosin Hcl (Prazosin), 1 MG PO HS Allergies Coded Allergies: Acetaminophen (Verified Allergy, Unknown, ANAPHYLAXIS, 04/17/17) Meperidine (Verified Allergy, Unknown, ANAPHYLAXIS, 05/11/17) Physical Exam Vital Signs Date Time Temp Pulse Resp B/P (MAP) Pulse Ox O2 Delivery O2 Flow Rate FiO2 05/12/17 00:50 106/63 05/12/17 00:42 99 20 97 Room Air 05/12/17 00:37 94/64 05/11/17 23:22 90 99 05/11/17 23:17 85 29 98 05/11/17 23:05 82 24 110/70 98 Room Air 05/11/17 22:47 86 32 98 05/11/17 22:32 81 32 99 05/11/17 22:31 99/70 05/11/17 22:17 85 20 99 05/11/17 22:07 99/69 05/11/17 21:39 37.1 87 18 100/68 97 Room Air Physical Exam GENERAL: Awake, alert, well-appearing, NAD HENT: Normocephalic, atraumatic. EYES: Normal conjunctiva. Sclera non-icteric. NECK: Supple. No nuchal rigidity. FROM. RESPIRATORY: CTAB, no rhonchi, wheezing, crackles CARDIAC: RRR, no MRG ABDOMEN: Soft, NTND, BS+ : Circumcised. No testicular or scrotal swelling. GROIN: Well healing incision site approximately 4cm with mild fluctuance and erythema that is blanching - approximately 8x4cm. MSK: No chest wall TTP, no LE edema. LLE brace in place. NEURO: GCS 15, CN 2-12 intact, moves all 4s on command. DHEERAJ deficit. SKIN: No rash or jaundice noted. Medical Decision & Procedures ER Provider Diagnostic Interpretation: Radiology results as stated below per my review and radiologist interpretation: US OTHER - EXTREMITY NON VASCULAR: Hypoechoic avascular collection or lesion in the left groin measuring 5.9x3.9x5.7 cm. Subtle internal echoes and/or septations are subjected within the collection. Collection appears to be immediately adjacent to and possibly inseparable from left common femoral vein on provided images. This may represent hematoma with other etiologies such as seroma or abscess not excluded. CT with contrast may be helpful for further assess. Radiologist: Carlie Mckeon MD Study ready at 5546 and initial results transmitted at 3403. Laboratory Results 05/11/17 23:01 Red Blood Count 4.55, Mean Corpuscular Volume 90.3, Mean Corpuscular Hemoglobin 31.4, Mean Corpuscular Hemoglobin Concent 34.8, Mean Platelet Volume 9.3, Neutrophils (%) (Auto) 78.8, Lymphocytes (%) (Auto) 6.8, Monocytes (%) (Auto) 13.6, Eosinophils (%) (Auto) 0.1, Basophils (%) (Auto) 0.1, Neutrophils # (Auto ) 16.69, Lymphocytes # (Auto) 1.45, Monocytes # (Auto) 2.89, Eosinophils # (Auto ) 0.03, Basophils # (Auto) 0.02 05/11/17 23:01 Test 05/11/17 23:01 05/12/17 00:58 White Blood Count 21.21 K/uL (4.8-10.8) Red Blood Count 4.55 M/uL (4.7-6.1) Hemoglobin 14.3 g/dL (14.0-18.0) Hematocrit 41.1 % (42-52) Mean Corpuscular Volume 90.3 fL (80-100) Mean Corpuscular Hemoglobin 31.4 pg (25-34) Mean Corpuscular Hemoglobin Concent 34.8 g/dl (32-36) Platelet Count 225 K/uL (130-400) Mean Platelet Volume 9.3 fL (7.4-10.4) Neutrophils (%) (Auto) 78.8 % Lymphocytes (%) (Auto) 6.8 % Monocytes (%) (Auto) 13.6 % Eosinophils (%) (Auto) 0.1 % Basophils (%) (Auto) 0.1 % Neutrophils # (Auto) 16.69 K/uL (1.4-6.5) Lymphocytes # (Auto) 1.45 K/uL (1.2-3.4) Monocytes # (Auto) 2.89 K/uL (0.11-0.59) Eosinophils # (Auto) 0.03 K/uL (0-0.5) Basophils # (Auto) 0.02 K/uL (0-0.2) RDW Standard Deviation 46.3 fL (36.4-46.3) RDW Coefficient of Variation 14.1 % (11.5-14.5) Immature Granulocyte % (Auto) 0.6 % Immature Granulocyte # (Auto) 0.13 K/uL (0.00-0.02) Anion Gap 8.0 mmol/L (3-11) Est Creatinine Clear Calc Drug Dose 76.8 ml/min Estimated GFR () 89.5 Estimated GFR (Non- 77.3 BUN/Creatinine Ratio 13.4 (10-20) Calcium Level 8.9 mg/dl (8.5-10.1) Magnesium Level 2.3 mg/dl (1.8-2.4) Total Bilirubin 0.8 mg/dl (0.2-1) Direct Bilirubin mg/dl (0-0.2) Aspartate Amino Transf (AST/SGOT) 15 U/L (15-37) Alanine Aminotransferase (ALT/SGPT) 16 U/L (12-78) Alkaline Phosphatase 53 U/L (45-117) Total Protein 7.9 gm/dl (6.4-8.2) Albumin 3.6 gm/dl (3.4-5.0) Lipase 222 U/L (73-393) Chemistry Specimen Hemolysis Laboratory results reviewed by me Medications Administered Medications (Trade) Dose Ordered Sig/Josefina Route Start Time Stop Time Status Last Admin Dose Admin Sodium Chloride 1,000 ml @ 999 mls/hr Q1H1M STAT IV 05/11/17 22:20 05/11/17 23:20 DC 05/11/17 23:04 999 MLS/HR Ondansetron HCl (Zofran Inj) 4 mg NOW STAT IV 05/11/17 22:20 05/11/17 22:24 DC 05/11/17 23:05 4 MG Ketorolac Tromethamine (Toradol Inj) 30 mg NOW STAT IV 05/11/17 22:20 05/11/17 22:24 DC 05/11/17 23:05 30 MG Piperacillin Sod/ Tazobactam Sod (Zosyn Iv) 4.5 gm NOW STAT IV 05/11/17 23:24 05/11/17 23:27 DC 05/12/17 00:42 4.5 GM Vancomycin HCl 1500 mg/Sodium Chloride 530 ml @ 200 mls/hr NOW ONCE IV 05/11/17 23:24 05/12/17 02:02 05/12/17 00:59 200 MLS/HR Morphine Sulfate (MoRPHine SULFATE INJ) 4 mg NOW STAT IV 05/12/17 00:19 05/12/17 00:20 DC 05/12/17 00:38 4 MG ED Course 2213: The patient was evaluated in room C08. A complete history and physical exam was performed. 2348: I reevaluated the patient and discussed his current exam findings. 0049: Upon reexamination, the patient was resting. I discussed the test results and treatment plan with he. The patient will be evaluated for further management. 0058: I discussed the patient's case with Dr. Ayla Palacios Hospitalist. The patient will be evaluated for further management. 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 Differential diagnosis: Etiologies such as cellulitis, abscess, MRSA infection, DVT, necrotizing fasciitis, dermatitis, drug eruption, as well as others were entertained. Patient was seen and evaluated the bedside. Patient does have a prior history of CVA for which she does wear a left lower extremity brace. Patient is presenting with complaints of some left-sided groin discomfort. Upon review of the electronic medical record, the patient was recently seen and evaluated at which point he did have an excisional procedure of his left inguinal nodes. Patient has noted some redness and swelling to the area. Patient does have mild erythema fluctuance and TTP. Patient did have blood work completed along with an ultrasound of the affected area. The patient's blood work was concerning for elevated white blood cell count of 20,000. Given this the patient was covered with broad-spectrum antibiotics. Patient's kidney function and other blood work is fairly unremarkable. Patient's ultrasound did show a fairly large fluid collection. Unknown as to whether or not it encompasses the vessels of the left lower extremity. Unsure as to whether or not this is abscess, hematoma versus seroma. The patient does have an elevated white count and a recent procedure, may be more likely infectious in nature. Patient was already started on broad-spectrum antibiotics. I did discuss the patient with the on-call hospitalist. A CT of the pelvis with IV contrast was added. The patient was admitted to the medicine service. Medication Reconcilliation Current Medication List: was personally reviewed by me Blood Pressure Screening Patient's blood pressure: Normal blood pressure Blood pressure disposition: Did not require urgent referral Consults Time Called: 55 Consulting Physician: Dr. Ayla Palacios Hospitalist Returned Call: [phone] I discussed the patient's case with Dr. Ayla Frey. The patient will be evaluated for further management. Impression Primary Impression: Fluid collection at surgical site Additional Impression: Groin pain Scribe Attestation The scribe's documentation has been prepared under my direction and personally reviewed by me in its entirety. I confirm that the note above accurately reflects all work, treatment, procedures, and medical decision making performed by me. Departure Information Dispostion Being Evaluated By Hospitalist Referrals Jey LOPEZ (PCP) Patient Instructions My [facility] Problem Qualifiers Primary Impression: Fluid collection at surgical site Encounter type: initial encounter Qualified Codes: T88.8XXA - Other specified complications of surgical and medical care, not elsewhere classified, initial encounter Additional Impression: Groin pain Laterality: left Qualified Codes: R10.32 - Left lower quadrant pain
[2017-05-11] MEDS ORDERED: NAPR-1169 PO (22:30)
[2017-05-11 23:17] LABS: HEMATOCRIT 41.1 % (42-52); HEMOGLOBIN 14.3 g/dL (14.0-18.0); MEAN CELL VOLUME 90.3 fL (80-100); MEAN CORPUSCULAR HEMOGLOBIN 31.4 pg (25-34); MEAN CORPUSCULAR HGB CONC 34.8 g/dl (32-36); MEAN PLATELET VOLUME 9.3 fL (7.4-10.4); PLATELET COUNT 225 K/uL (130-400); RED CELL DISTRIBUTION WIDTH CV 14.1 % (11.5-14.5); RED CELL DISTRIBUTION WIDTH SD 46.3 fL (36.4-46.3); WHITE BLOOD COUNT 21.21 K/uL (4.8-10.8)
[2017-05-11] MEDS ORDERED: PIPERACILLIN/TAZOBACTAM 4.5 GM/100ML D5W IV STA (23:24)
[2017-05-11] MEDS ORDERED: VANCOMYCIN IV 1,500 MG in SODIUM CHLORIDE 0.9% 250ML 250 ML IV STA (23:24)
[2017-05-11] MEDS ORDERED: VANCOMYCIN IV 1,500 MG in SODIUM CHLORIDE 0.9% 500ML 500 ML IV ONE (23:24)
[2017-05-11] MEDS ORDERED: VANCOMYCIN CONSULT ACTIVE PRN (23:30)
[2017-05-11 23:39] LABS: ALBUMIN 3.6 gm/dl (3.4-5.0); ALT/SGPT 16 U/L (12-78); BLOOD UREA NITROGEN 15 mg/dl (7-18); CALCIUM 8.9 mg/dl (8.5-10.1); CARBON DIOXIDE 25 mmol/L (21-32); CREATININE 1.12 mg/dl (0.60-1.40); GLUCOSE 84 mg/dl (70-99); LIPASE 222 U/L (73-393); POTASSIUM 3.7 mmol/L (3.5-5.1); SODIUM 136 mmol/L (136-145)
[2017-05-11 23:40] LABS: ALKALINE PHOSPHATASE 53 U/L (45-117); AST/SGOT 15 U/L (15-37); TOTAL PROTEIN 7.9 gm/dl (6.4-8.2)
[2017-05-11 23:47] LABS: BASO % 0.1 %; BASO ABS # 0.02 K/uL (0-0.2); EOS % 0.1 %; EOS ABS # 0.03 K/uL (0-0.5); IG# 0.13 K/uL (0.00-0.02); LYMPH % 6.8 %; LYMPH ABS # 1.45 K/uL (1.2-3.4); MONO % 13.6 %; MONO ABS # 2.89 K/uL (0.11-0.59); NEUT % 78.8 %; NEUT ABS # 16.69 K/uL (1.4-6.5)
[2017-05-12] VITALS (10 sets, daily range): BP systolic 91–107; BP diastolic 58–70; PULSE 63–82; TEMP 36.4–37.1; O2SAT 95–99; Ht 172.7 cm; Wt 84.7 kg
[2017-05-12] MEDS ORDERED: MoRPHine SULFATE 4 MG/ML 1 ML CARP\\VIAL IV STA (00:19)
[2017-05-12] MEDS ORDERED: OPTIRAY 320 IV PRN (01:00)
[2017-05-12] MEDS ORDERED: SODIUM CHLORIDE 0.9% 1000ML 1,000 ML IV STA (02:17)
[2017-05-12] MEDS ORDERED: PROCHLORPERAZINE INJ 5 MG in SYRINGE 4 ML IV PRN (03:15)
[2017-05-12] MEDS ORDERED: TRAMADOL HCL 50 MG TAB ONE (03:48)
--- NOTE | 2017-05-12 05:25 | DIAGNOSTIC IMAGING REPORT ---
L EXTREMITY NONVASCULAR LIMITED CLINICAL HISTORY: 46 years-old Male presenting with L node excision, swelling, redness, r/o abscess/seroma/. TECHNIQUE: Real-time grayscale ultrasound imaging of the left inguinal region was performed for a focused evaluation at the site of clinical concern. Color and spectral Doppler were also performed. COMPARISON: CT from 04/15/2017 and 05/12/2017. FINDINGS: At the site of clinical concern, there is a well-defined hypoechoic avascular collection measuring 5.9 x 3.9 x 5.7 cm. This contains internal echoes. The left common femoral vein approaches the collection and appears intimately associated with the greater saphenous vein. Overlying subcutaneous edema noted. IMPRESSION: 1. Avascular collection in the left inguinal region measuring 5.9 cm. This most likely represents a hematoma status post lymph node excision although sterility cannot be confirmed. Please see separately dictated CT of the pelvis performed subsequently. Electronically signed by: Elias Floyd M.D. 05/12/2017 5:23 AM Dictated Date/Time: 05/12/2017 5:20 AM
[2017-05-12 05:50] LABS: BASO % 0.1 %; BASO ABS # 0.01 K/uL (0-0.2); EOS % 0.4 %; EOS ABS # 0.07 K/uL (0-0.5); HEMATOCRIT 37.9 % (42-52); HEMOGLOBIN 12.8 g/dL (14.0-18.0); IG# 0.06 K/uL (0.00-0.02); LYMPH % 7.4 %; LYMPH ABS # 1.38 K/uL (1.2-3.4); MEAN CELL VOLUME 92.7 fL (80-100); MEAN CORPUSCULAR HEMOGLOBIN 31.3 pg (25-34); MEAN CORPUSCULAR HGB CONC 33.8 g/dl (32-36); MEAN PLATELET VOLUME 9.4 fL (7.4-10.4); NEUT % 77.8 %; NEUT ABS # 14.51 K/uL (1.4-6.5); PLATELET COUNT 213 K/uL (130-400); RED CELL DISTRIBUTION WIDTH CV 14.1 % (11.5-14.5); RED CELL DISTRIBUTION WIDTH SD 48.2 fL (36.4-46.3); WHITE BLOOD COUNT 18.63 K/uL (4.8-10.8)
[2017-05-12] MEDS: MoRPHine SULFATE 2 MG/ML CARP IV PRN (06:00)
--- NOTE | 2017-05-12 06:23 | DIAGNOSTIC IMAGING REPORT ---
PELVIS W/IV CONT ONLY (CT) CLINICAL HISTORY: 46 years-old Male presenting with left leg hernia repair, recent lymph node dissection, postoperative swollen, red, and warm. TECHNIQUE: Multidetector CT of the pelvis was performed after the administration of intravenous contrast. IV contrast: 119 mL of Optiray 320. A dose lowering technique was used consistent with the principles of ALARA (as low as reasonably achievable). COMPARISON: 04/15/2017. CT DOSE (mGy.cm): The estimated cumulative dose is 274.29 mGy.cm. FINDINGS: Meat Clerk topogram: Unremarkable. Subcutaneous fat infiltration surrounds a water density collection in the left inguinal region, which measures up to 5.2 cm in diameter and is round in configuration. This is abutted by several enhancing lymph nodes. The greater saphenous vein courses along the medial aspect of the collection. No other abnormality of the vasculature. Decreased inflammatory change surrounding the left external iliac lymph nodes in comparison to prior. Intrapelvic contents demonstrate normal appendix and normal pelvic bowel loops. Bladder normal. Normal prostate and seminal vesicles. Atherosclerosis. Patent iliac vessels. No free intraperitoneal fluid or gas in the pelvis. Degenerative changes of the lower lumbar spine. IMPRESSION: Postsurgical changes of the left inguinal region with a 5.2 cm fluid collection and surrounding inflammatory change. This could represent a postoperative seroma, although abscess is not excluded given the clinical information. Electronically signed by: Elias Floyd M.D. 05/12/2017 6:21 AM Dictated Date/Time: 05/12/2017 6:17 AM
[2017-05-12] MEDS: D5NSS + 20MEQ KCL 1,000 ML IV SCH ×2 (06:29→21:06)
[2017-05-12] MEDS: PIPERACILL/TAZOBAC IV 3.375 GM in DEXTROSE 5% 100ML IV SCH ×2 (06:30→13:56)
--- NOTE | 2017-05-12 07:23 | Surgery Consultation ---
Consultation Date of Consultation: May 12, 2017. Attending Physician: Aaron Campos MD Reason for Consultation: Wound infection, sepsis. History of Present Illness Patient is a 46M who presented to the ED last night due to left groin pain and swelling. PMHx significant for CVA, pacemaker, HLD, sepsis. He was recently hospitalized on Apr 15 for sepsis. During this hospitalization he was seen by Dr. Waller who performed a left inguinal lymph node bx. Since then he reports the incision site was healing fine. Reports a few days after his suture removal that the incision site began to become tender and swollen. Reports intermittent chills, denies recent illness. Denies nausea/vomiting. He has been moving his bowels and urinating without trouble. WBC 18.63 down from 21.21 last night. He was started on IV zosyn by the medical team. Pelvic CT shows findings consistent with abscess vs hematoma vs seroma. Reports he last ate yesterday evening. Denies any past abdominal surgeries. Patient does take Aspirin 81mg PO QD. Denies use of other blood thinning or anticoagulant medications. Past Medical/Surgical History Medical Problems: (1) Colitis Status: Acute (2) GI bleed Status: Acute (3) Inguinal abscess Status: Acute (4) Necrotizing inflammation of lymph node Status: Acute (5) Sepsis Status: Acute Family History Cancer Diabetes mellitus GRANDMOTHER FH: asthma Heart disease Hypertension Social History Smoking Status: Current Every Day Smoker Drug Use: none Marital Status: single Housing Status: other Occupation Status: other Allergies Coded Allergies: Acetaminophen (Verified Allergy, Unknown, ANAPHYLAXIS, 04/17/17) Meperidine (Verified Allergy, Unknown, ANAPHYLAXIS, 05/11/17) Home Medications Scheduled Aspirin (Aspirin), 81 MG PO DAILY Carvedilol (Coreg), 6.25 MG PO BID Gemfibrozil (Lopid), 600 MG PO BID Hydroxyzine Pamoate (Vistaril), 50 MG PO BID Naproxen (Naprosyn), 500 MG PO BID Paroxetine (Paroxetine HCl), 30 MG PO DAILY Prazosin Hcl (Prazosin), 1 MG PO HS Current Inpatient Medications Current Inpatient Medications Medications (Trade) Dose Ordered Sig/Josefina Route Start Time Stop Time Status Last Admin Dose Admin Ioversol (Optiray 320) 125 ml UD PRN IV 05/12/17 01:00 05/16/17 00:59 Enoxaparin Sodium (Lovenox Inj) 30 mg Q24H SQ 05/12/17 03:15 06/11/17 03:14 UNV Ketorolac Tromethamine (Toradol Inj) 15 mg Q6H PRN IV. 05/12/17 03:15 05/17/17 03:14 Tramadol HCl (Ultram Tab) FOR PAIN, 25-50 MG 25 MG ... Q6H PRN PO 05/12/17 03:15 06/11/17 03:14 Morphine Sulfate (MoRPHine SULFATE INJ) 2 mg Q4H PRN IV 05/12/17 03:15 05/26/17 03:14 05/12/17 06:00 2 MG Potassium Chloride/Dextrose/ Sod Cl 1,000 ml @ 75 mls/hr [id number] IV 05/12/17 05:00 06/11/17 04:59 05/12/17 06:29 75 MLS/HR Doxycycline Hyclate 100 mg/ Dextrose 110 ml @ 50 mls/hr Q12H IV 05/12/17 08:00 05/22/17 07:59 Miscellaneous Information (Consult) 1 ea UD PRN N/A 05/12/17 08:00 06/11/17 07:59 Aspirin (Ecotrin Tab) 81 mg DAILY PO 05/12/17 08:00 06/11/17 08:59 UNV Gemfibrozil (Lopid Tab) 600 mg BID PO 05/12/17 08:00 06/11/17 08:59 UNV Non-Formulary Medication (Hydroxyzine Pamoate (Vistaril)) 50 mg BID PO 05/12/17 08:00 06/11/17 08:59 UNV Non-Formulary Medication (Paroxetine (Paroxetine HCl)) 30 mg DAILY PO 05/12/17 08:00 06/11/17 08:59 UNV Ibuprofen (Advil Tab) 400 mg Q6H PRN PO 05/12/17 03:15 06/11/17 03:14 Prochlorperazine Edisylate 5 mg/ Syringe 5 ml @ 5 mls/min Q6H PRN IV 05/12/17 03:15 06/11/17 03:14 Piperacillin Sod/ Tazobactam Sod 3.375 gm/Dextrose 115 ml @ 28.75 mls/ hr Q8H IV 05/12/17 06:00 05/22/17 05:59 05/12/17 06:30 28.75 MLS/HR Review of Systems Constitutional: + chills, No fever Abdomen: No pain, No nausea, No vomiting, No diarrhea, No constipation Genitourinary - Male: + problem reported (left sided groin pain), No dysuria Physical Exam Date Time Temp Pulse Resp B/P (MAP) Pulse Ox O2 Delivery O2 Flow Rate FiO2 05/12/17 05:53 82 100/61 (74) 05/12/17 03:25 36.9 79 20 91/58 97 Room Air 05/12/17 03:02 93/66 05/12/17 02:59 93/60 05/12/17 02:57 91/56 05/12/17 02:56 85 27 96 05/12/17 02:41 86 20 94 05/12/17 02:31 85/62 05/12/17 02:26 83 25 96 05/12/17 02:11 80 97 05/12/17 02:06 84 19 97 05/12/17 02:01 90/59 05/12/17 01:06 93 22 97 05/12/17 01:01 103/58 05/12/17 00:55 93 29 95 05/12/17 00:50 106/63 05/12/17 00:42 99 20 97 Room Air 05/12/17 00:37 94/64 05/11/17 23:22 90 99 05/11/17 23:17 85 29 98 05/11/17 23:05 82 24 110/70 98 Room Air 05/11/17 22:47 86 32 98 05/11/17 22:32 81 32 99 05/11/17 22:31 99/70 05/11/17 22:17 85 20 99 05/11/17 22:07 99/69 05/11/17 21:39 37.1 87 18 100/68 97 Room Air General Appearance: WD/WN, no apparent distress Head: normocephalic, atraumatic ENT: hearing grossly normal Respiratory/Chest: no respiratory distress, no accessory muscle use Abdomen/GI: non tender, soft, no organomegaly, no pulsatile mass Genitourinary - Male: + pertinent finding (left sided groin TTP, erythema and swelling surrounding his incision s/p inguinal LN Bx.) Neurologic/Psych: alert, normal mood/affect, oriented x 3 Skin: normal color, warm/dry Laboratory Results Last 24 Hours Test 05/11/17 23:01 05/12/17 02:10 05/12/17 04:05 05/12/17 05:14 White Blood Count 21.21 K/uL 18.63 K/uL Red Blood Count 4.55 M/uL 4.09 M/uL Hemoglobin 14.3 g/dL 12.8 g/dL Hematocrit 41.1 % 37.9 % Mean Corpuscular Volume 90.3 fL 92.7 fL Mean Corpuscular Hemoglobin 31.4 pg 31.3 pg Mean Corpuscular Hemoglobin Concent 34.8 g/dl 33.8 g/dl Platelet Count 225 K/uL 213 K/uL Mean Platelet Volume 9.3 fL 9.4 fL Neutrophils (%) (Auto) 78.8 % 77.8 % Lymphocytes (%) (Auto) 6.8 % 7.4 % Monocytes (%) (Auto) 13.6 % 14.0 % Eosinophils (%) (Auto) 0.1 % 0.4 % Basophils (%) (Auto) 0.1 % 0.1 % Neutrophils # (Auto) 16.69 K/uL 14.51 K/uL Lymphocytes # (Auto) 1.45 K/uL 1.38 K/uL Monocytes # (Auto) 2.89 K/uL 2.60 K/uL Eosinophils # (Auto) 0.03 K/uL 0.07 K/uL Basophils # (Auto) 0.02 K/uL 0.01 K/uL RDW Standard Deviation 46.3 fL 48.2 fL RDW Coefficient of Variation 14.1 % 14.1 % Immature Granulocyte % (Auto) 0.6 % 0.3 % Immature Granulocyte # (Auto) 0.13 K/uL 0.06 K/uL Sodium Level 136 mmol/L Potassium Level 3.7 mmol/L Chloride Level 103 mmol/L Carbon Dioxide Level 25 mmol/L Anion Gap 8.0 mmol/L Blood Urea Nitrogen 15 mg/dl Creatinine 1.12 mg/dl Est Creatinine Clear Calc Drug Dose 76.8 ml/min Estimated GFR () 89.5 Estimated GFR (Non- 77.3 BUN/Creatinine Ratio 13.4 Random Glucose 84 mg/dl Calcium Level 8.9 mg/dl Magnesium Level 2.3 mg/dl Total Bilirubin 0.8 mg/dl Direct Bilirubin mg/dl Aspartate Amino Transf (AST/SGOT) 15 U/L Alanine Aminotransferase (ALT/SGPT) 16 U/L Alkaline Phosphatase 53 U/L Total Protein 7.9 gm/dl Albumin 3.6 gm/dl Lipase 222 U/L Thyroid Stimulating Hormone (TSH) 0.352 uIu/ml Chemistry Specimen Hemolysis Lactic Acid Level 0.7 mmol/L Urine Color YELLOW Urine Appearance CLEAR Urine pH 5.0 Urine Specific [place] > 1.045 Urine Protein NEG Urine Glucose (UA) NEG Urine Ketones NEG Urine Occult Blood 1+ Urine Nitrite NEG Urine Bilirubin NEG Urine Urobilinogen NEG Urine Leukocyte Esterase NEG Urine WBC (Auto) 1-5 /hpf Urine RBC (Auto) 0-4 /hpf Urine Hyaline Casts (Auto) 0 /lpf Urine Epithelial Cells (Auto) 10-20 /lpf Urine Bacteria (Auto) NEG Assessment & Plan wound infection s/p Left inguinal excisional lymph node Bx. WBC 18.63, symptoms, exam and imaging consistent with abscess vs seroma vs hematoma. Keep NPO for now, Continue IV antibiotics. Will plan for I&D of left groin abscess in the OR today with Dr. Yuen. OR Notified. Please Contact with questions or concerns.
[2017-05-12] MEDS ORDERED: PIPERACILL/TAZOBAC CONSULT ACTIVE PRN (08:00)
[2017-05-12] MEDS ORDERED: PROPOFOL IV EMULSION 10 MG/ML 20 ML VIAL IV ONE (09:04)
[2017-05-12] MEDS ORDERED: MIDAZOLAM HCL 1 MG/ML 2ML VIAL ONE (09:04)
[2017-05-12] MEDS ORDERED: LIDOCAINE HCL 2% 2 ML VIAL (20MG/ML) ONE (09:04)
[2017-05-12] MEDS ORDERED: FENTANYL CITRATE INJ 50 MCG/1 ML 2 ML VIAL ONE (09:04)
[2017-05-12] MEDS ORDERED: ONDANSETRON INJ 2 MG/ML 2 ML VIAL ONE (09:04)
[2017-05-12] MEDS ORDERED: DEXAMETHASONE SOD INJ 4 MG/ML VIAL ONE ×2 (09:04→10:11)
[2017-05-12] MEDS ORDERED: BUPIVACAINE 0.5 % 5 MG/1 ML MPF 30ML VIAL ONE (09:23)
[2017-05-12] MEDS ORDERED: BACITRACIN 50000 UNIT VIAL ONE (09:23)
[2017-05-12] MEDS ORDERED: EpHEDrine SULFATE INJ 50 MG/ML AMP IV PRN (09:30)
[2017-05-12] MEDS ORDERED: HYDROmorphone INJ 1 MG/ML SYR IV PRN (09:30)
[2017-05-12] MEDS ORDERED: LABETALOL HCL IV 5 MG/ML 20ML IV PRN (09:30)
[2017-05-12] MEDS ORDERED: ATROPINE SULFATE 0.1 MG/ML 5ML SYR IV PRN (09:30)
[2017-05-12] MEDS ORDERED: ONDANSETRON INJ 2 MG/ML 2 ML VIAL IV PRN (09:30)
[2017-05-12] MEDS ORDERED: MEPERIDINE HCL 25 MG/ML CARP IV PRN (09:30)
[2017-05-12] MEDS ORDERED: FENTANYL CITRATE INJ 50 MCG/1 ML 2 ML VIAL IV PRN (09:30)
[2017-05-12 09:31] LABS: INR 1.2 (0.9-1.1)
--- NOTE | 2017-05-12 09:50 | [facility] Post Operative Brief Note ---
Immediate Operative Summary Operative Date May 12, 2017. Pre-Operative Diagnosis Left Groin Abscess Post-Operative Diagnosis Infected Left Groin Seroma Procedure(s) Performed Incision and Drainage Infected Left Groin Seroma Surgeon Dr. Yuen Licensed Club Manager Surgeon(s) Gayle Johnson PA-C Estimated Blood Loss 2 cc Findings See Below Serous fluid, sent for culture. Wound packed with Kerlix Specimens Culture #1 Left groin seroma - aerobic/anaerobic, gram stain, culture and sensitivity Drains None Anesthesia Type General Complication(s) none Disposition Accompanied Pt To Recover: no Disposition: Recovery Room / PACU
--- NOTE | 2017-05-12 09:56 | [facility] Operative Report ---
Operative Report Operative Date May 12, 2017. Pre-Operative Diagnosis Left Groin Abscess Post-Operative Diagnosis Infected left groin seroma Procedure(s) Performed Incision and drainage of infected left groin seroma Surgeon Dr. Yuen Cancer Genetic Counselor Surgeon(s) Gayle Johnson PA-C Estimated Blood Loss 2 cc Findings Serous fluid, sent for culture. Wound irrigated copiously, good hemostasis, wound packed with Kerlix gauze. Specimens Culture #1 Left groin seroma - aerobic/anaerobic, gram stain, culture and sensitivity Drains None Anesthesia General Complication(s) None Disposition Recovery Room / PACU Indications 46-year-old incarcerated male with left inguinal lymph node biopsy one month ago , now with likely left groin abscess versus seroma. Plan for incision and drainage left groin abscess in the operating room. The risks of the procedure were discussed, all questions were answered, and the patient agreed to proceed with surgery as planned. Description of Procedure The patient was properly identified, consented, and taken to the operating room where he was placed in the supine position. General anesthesia was induced. SCDs and a safety belt were placed. The patient was receiving antibiotics on the floor. The patient's left groin was prepped and draped in the standard sterile fashion. Surgical timeout was performed and all parties were in agreement that this was the correct patient and procedure to be performed and we continued as planned. The old incision was opened using a knife approximately 100 cc of serous fluid was returned. This fluid was sent for culture. There is some fibrinous exudate in the base of the wound and this was gently debrided. The incision was injected with local anesthetic. The wound was irrigated with saline mixed with bacitracin. Hemostasis was achieved within the wound. The wound was then packed with moistened Kerlix gauze, and a sterile dressing was applied. The patient was extubated in the operating room and taken to the PACU where he recovered without apparent incident. All sponge, instrument and needle counts were correct at the conclusion of the procedure. The patient tolerated the procedure well. The physician's television production assistant was present and scrubbed for the entirety of the case. She was critical in positioning the patient, prepping and draping, retraction and exposure, and placement of the dressing. I attest to the content of the Intraoperative Record and any orders documented therein. Any exceptions are noted below.
--- NOTE | 2017-05-12 11:04 | Anesthesiology Progress Note ---
Anesthesia Post Op Note Date & Time May 12, 2017 at 11:04 Vital Signs Pain Intensity: 3 Vital Signs Past 12 Hours Date Time Temp Pulse Resp B/P (MAP) Pulse Ox O2 Delivery O2 Flow Rate FiO2 05/12/17 10:40 37.2 81 15 101/60 95 Nasal Cannula 2 05/12/17 10:30 84 17 123/59 98 Nasal Cannula 2 05/12/17 10:20 79 13 105/66 100 Oxymask 10 05/12/17 10:10 80 17 104/66 99 Oxymask 10 05/12/17 10:02 36.7 82 16 102/61 100 Oxymask 10 05/12/17 07:34 37.1 79 18 100/64 (76) 98 05/12/17 05:53 82 100/61 (74) 05/12/17 03:25 36.9 79 20 91/58 97 Room Air 05/12/17 03:02 93/66 05/12/17 02:59 93/60 05/12/17 02:57 91/56 05/12/17 02:56 85 27 96 05/12/17 02:41 86 20 94 05/12/17 02:31 85/62 05/12/17 02:26 83 25 96 05/12/17 02:11 80 97 05/12/17 02:06 84 19 97 05/12/17 02:01 90/59 05/12/17 01:06 93 22 97 05/12/17 01:01 103/58 05/12/17 00:55 93 29 95 05/12/17 00:50 106/63 05/12/17 00:42 99 20 97 Room Air 05/12/17 00:37 94/64 05/11/17 23:22 90 99 05/11/17 23:17 85 29 98 05/11/17 23:05 82 24 110/70 98 Room Air Notes Mental Status: alert / awake / arousable, participated in evaluation Pt Amnestic to Procedure: Yes Nausea / Vomiting: adequately controlled Pain: adequately controlled Airway Patency, RR, SpO2: stable & adequate BP & HR: stable & adequate Hydration State: stable & adequate Anesthetic Complications: no major complications apparent
--- NOTE | 2017-05-12 11:20 | HISTORY & PHYSICAL EXAMINATION ---
DATE OF ADMISSION: 05/12/2017 PRIMARY CARE DOCTOR: JESSICA Khanna CHIEF COMPLAINT: Left groin pain, swelling. HISTORY OF PRESENT ILLNESS: History obtained from the patient and records. Medical history significant for CAD, CVA as per records, hypertension, hyperlipidemia, PTSD, history of cardiac arrest sp ICD/PPM, ongoing tobacco abuse. Recent confinement last month for left inguinal adenopathy likely reactive. Patient initially presented w/ sepsis symptoms. cultures no growth. Antibiotics eventually stopped. Patient underwent lymph node biopsy which showed reactive hyperplasia with inflammation. Recommendations on discharge included monitoring possible progression of lymphadenopathy and outpatient followup corporate librarian/oncologist, repeat CT chest, abdomen and pelvis in 1 month. Patient had a followup with surgeon last week in the office. Sutures removed as per patient, no concerns with healing as per patient. Yesterday, the patient noted increased swelling on the left groin, fever, chills, nausea, vomiting and increasing achy groin pain. No chest pain, no shortness of breath. Patient brought to Emergency Room. He received Vancomycin and Zosyn for possible sepsis. MEDICAL HISTORY: As above. SURGERIES: ICD/PPM placement. HOME MEDICATIONS: Include aspirin, carvedilol, prazosin, Vistaril . ALLERGIES: TYLENOL, MEPERIDINE. FAMILY HISTORY: There is a family history of heart disease. PERSONAL AND SOCIAL HISTORY: A pack of cigarettes lasting him 2 weeks. No EtOH intake, assisted inmate. REVIEW OF SYSTEMS: As per HPI, all 10 systems reviewed, all other ROS negative. PHYSICAL EXAMINATION: VITAL SIGNS: Blood pressure is noted to be 100/68, later 94/64, pulse rate 81, RR 32, temperature 36.9, sats 97 on room air. GENERAL: Noted to be uncomfortable, in respiratory distress. SKIN: Normal color, warm. HEENT: [place] palpebral conjunctivae. No ptosis. Dry mucosa. NECK: Supple, nontender. CHEST: Clear to auscultation. No tenderness. HEART: RRR no murmur. ABDOMEN: Soft. tender swelling on the left groin with some fluctuance. EXTREMITIES: No LE tenderness, No edema. No gross deformities NEUROLOGIC: Coherent, no gross focality. LABORATORY DATA: Hemoglobin 14.8, hematocrit 41.7, white cell count 20, platelets noted to be 225. Sodium 136, potassium 3.7, chloride 103, CO2 25, BUN 20, creatinine 1, glucose 84. Lactic acid 0.7 IMAGING: CT pelvis initial read showed postsurgical changes left groin with 5.2 cm fluid collection, postop seroma versus abscess versus hematoma. ASSESSMENT AND PLAN: 1. Sepsis secondary to left groin abscess. History of lymph node biopsy. 2. Hypertension. Blood pressure on the lower side. 3. coronary artery disease, cerebrovascular accident as per records 4. history of cardiac arrest status post ICD/PPM. 5. ongoing tobacco abuse GMF CS, Doxycycline/Zosyn De-escalate antibiotics pending CS results availability Surgery consult RE left groin swelling. Patient known to Dr. Waller. IV fluids Hold home Coreg, Prazosin until patient normotensive. Antihypertensive regimen may need to be modified pending inpatient blood pressure control. Patient counseled to stop smoking. DVT prophylaxis, Lovenox subcutaneous Full code. MTDD
[2017-05-12] MEDS: hydrOXYzine HCL 25 MG TAB PO SCH ×2 (11:25→21:00)
[2017-05-12] MEDS: ASPIRIN 81 MG ECTAB PO SCH (11:25)
[2017-05-12] MEDS: GEMFIBROZIL 600 MG TAB PO SCH ×2 (11:26→21:00)
[2017-05-12] MEDS: PAROXETINE 30 MG TAB PO SCH (11:26)
[2017-05-12] MEDS: ENOXAPARIN 30 MG/0.3 ML SYR SQ SCH (11:27)
[2017-05-12] MEDS: DOXYCYCLINE IV 100 MG in DEXTROSE 5% 100ML 100 ML IV SCH ×2 (11:32→21:06)
[2017-05-12] MEDS: TRAMADOL HCL 50 MG TAB PO PRN (12:01)
[2017-05-12] MEDS: KETOROLAC TROMETHAMINE 15 MG/ML VIAL IV. PRN (15:32)
--- NOTE | 2017-05-12 18:42 | Progress Note ---
Internal Med Progress Note Date of Service: May 12, 2017. Provider Documentation: resting comfortably. s/p I and D of left groin seroma/abscess. await cx. on iv abx. hemodynamics stable. will monitor ASSESSMENT & PLAN: [] DVT PROPHYLAXIS [] DISPOSITION [] Vital Signs: Date Time Temp Pulse Resp B/P (MAP) Pulse Ox O2 Delivery O2 Flow Rate FiO2 05/12/17 15:40 Nasal Cannula 2.0 05/12/17 14:58 36.6 63 18 98/68 (78) 99 Nasal Cannula 2.0 05/12/17 14:00 36.4 73 16 104/66 (79) 98 Nasal Cannula 2.0 05/12/17 14:00 36.4 73 16 104/66 (79) 98 Nasal Cannula 2.0 05/12/17 12:04 75 16 103/64 (77) 98 Nasal Cannula 2.0 05/12/17 11:30 36.7 66 16 91/59 (70) 98 Nasal Cannula 2.0 05/12/17 11:00 36.7 72 14 98/62 (74) 95 Nasal Cannula 2.0 05/12/17 11:00 Nasal Cannula 2.0 05/12/17 11:00 Room Air 2.0 05/12/17 10:40 37.2 81 15 101/60 95 Nasal Cannula 2 05/12/17 10:30 84 17 123/59 98 Nasal Cannula 2 05/12/17 10:20 79 13 105/66 100 Oxymask 10 05/12/17 10:10 80 17 104/66 99 Oxymask 10 05/12/17 10:02 36.7 82 16 102/61 100 Oxymask 10 05/12/17 07:34 37.1 79 18 100/64 (76) 98 05/12/17 05:53 82 100/61 (74) 05/12/17 03:25 36.9 79 20 91/58 97 Room Air 05/12/17 03:02 93/66 05/12/17 02:59 93/60 05/12/17 02:57 91/56 05/12/17 02:56 85 27 96 05/12/17 02:41 86 20 94 05/12/17 02:31 85/62 05/12/17 02:26 83 25 96 3/3/18 02:11 80 97 05/12/17 02:06 84 19 97 05/12/17 02:01 90/59 05/12/17 01:06 93 22 97 05/12/17 01:01 103/58 05/12/17 00:55 93 29 95 05/12/17 00:50 106/63 05/12/17 00:42 99 20 97 Room Air 05/12/17 00:37 94/64 05/11/17 23:22 90 99 05/11/17 23:17 85 29 98 05/11/17 23:05 82 24 110/70 98 Room Air 05/11/17 22:47 86 32 98 05/11/17 22:32 81 32 99 05/11/17 22:31 99/70 05/11/17 22:17 85 20 99 05/11/17 22:07 99/69 05/11/17 21:39 37.1 87 18 100/68 97 Room Air Lab Results: Results Past 24 Hours Test 05/11/17 23:01 05/12/17 02:10 05/12/17 04:05 05/12/17 05:14 Range/Units White Blood Count 21.21 18.63 4.8-10.8 K/uL Red Blood Count 4.55 4.09 4.7-6.1 M/uL Hemoglobin 14.3 12.8 14.0-18.0 g/dL Hematocrit 41.1 37.9 42-52 % Mean Corpuscular Volume 90.3 92.7 80-100 fL Mean Corpuscular Hemoglobin 31.4 31.3 25-34 pg Mean Corpuscular Hemoglobin Concent 34.8 33.8 32-36 g/dl Platelet Count 225 213 130-400 K/uL Mean Platelet Volume 9.3 9.4 7.4-10.4 fL Neutrophils (%) (Auto) 78.8 77.8 % Lymphocytes (%) (Auto) 6.8 7.4 % Monocytes (%) (Auto) 13.6 14.0 % Eosinophils (%) (Auto) 0.1 0.4 % Basophils (%) (Auto) 0.1 0.1 % Neutrophils # (Auto) 16.69 14.51 1.4-6.5 K/uL Lymphocytes # (Auto) 1.45 1.38 1.2-3.4 K/uL Monocytes # (Auto) 2.89 2.60 0.11-0.59 K/uL Eosinophils # (Auto) 0.03 0.07 0-0.5 K/uL Basophils # (Auto) 0.02 0.01 0-0.2 K/uL RDW Standard Deviation 46.3 48.2 36.4-46.3 fL RDW Coefficient of Variation 14.1 14.1 11.5-14.5 % Immature Granulocyte % (Auto) 0.6 0.3 % Immature Granulocyte # (Auto) 0.13 0.06 0.00-0.02 K/uL Sodium Level 136 136-145 mmol/L Potassium Level 3.7 3.5-5.1 mmol/L Chloride Level 103 98-107 mmol/L Carbon Dioxide Level 25 21-32 mmol/L Anion Gap 8.0 3-11 mmol/L Blood Urea Nitrogen 15 7-18 mg/dl Creatinine 1.12 0.60-1.40 mg/dl Est Creatinine Clear Calc Drug Dose 76.8 ml/min Estimated GFR () 89.5 Estimated GFR (Non- 77.3 BUN/Creatinine Ratio 13.4 10-20 Random Glucose 84 70-99 mg/dl Calcium Level 8.9 8.5-10.1 mg/dl Magnesium Level 2.3 1.8-2.4 mg/dl Total Bilirubin 0.8 0.2-1 mg/dl Direct Bilirubin 0-0.2 mg/dl Aspartate Amino Transf (AST/SGOT) 15 15-37 U/L Alanine Aminotransferase (ALT/SGPT) 16 12-78 U/L Alkaline Phosphatase 53 45-117 U/L Total Protein 7.9 6.4-8.2 gm/dl Albumin 3.6 3.4-5.0 gm/dl Lipase 222 73-393 U/L Thyroid Stimulating Hormone (TSH) 0.352 0.300-4.500 uIu/ml Chemistry Specimen Hemolysis Lactic Acid Level 0.7 0.4-2.0 mmol/L Urine Color YELLOW Urine Appearance CLEAR CLEAR Urine pH 5.0 4.5-7.5 Urine Specific [place] > 1.045 1.000-1.030 Urine Protein NEG NEG Urine Glucose (UA) NEG NEG Urine Ketones NEG NEG Urine Occult Blood 1+ NEG Urine Nitrite NEG NEG Urine Bilirubin NEG NEG Urine Urobilinogen NEG NEG Urine Leukocyte Esterase NEG NEG Urine WBC (Auto) 1-5 0-5 /hpf Urine RBC (Auto) 0-4 0-4 /hpf Urine Hyaline Casts (Auto) 0 0-5 /lpf Urine Epithelial Cells (Auto) 10-20 0-5 /lpf Urine Bacteria (Auto) NEG NEG Test 05/12/17 08:35 Range/Units Prothrombin Time 12.3 9.0-12.0 SECONDS Prothromb Time International Ratio 1.2 0.9-1.1 Microbiology Results 05/12/17 Blood Culture, Received Pending 05/12/17 Blood Culture, Received Pending 05/12/17 MRSA DNA Surveillance Screen - Final, Complete Specimen Negative for MRSA by DNA Probe 05/12/17 Gram Stain, Received Pending 05/12/17 Bacterial Culture, Received Pending
[2017-05-12] MEDS: PRAZOSIN HCL 1 MG CAP PO SCH (20:59)
[2017-05-12] MEDS: CARVEDILOL 6.25 MG TAB PO SCH (20:59)
[2017-05-12] MEDS: NAPROXEN 250 MG TAB PO SCH (21:00)
[2017-05-13] MEDS: PIPERACILL/TAZOBAC IV 3.375 GM in DEXTROSE 5% 100ML IV SCH ×4 (00:26→21:33)
[2017-05-13] MEDS: KETOROLAC TROMETHAMINE 15 MG/ML VIAL IV. PRN ×3 (00:39→18:50)
[2017-05-13 03:37] VITALS: BP 93/56; PULSE 60; TEMP 36.5; O2SAT 97
[2017-05-13 07:06] VITALS: BP 97/62; PULSE 60; TEMP 36.3; O2SAT 97
[2017-05-13 07:15] LABS: BASO % 0.2 %; BASO ABS # 0.02 K/uL (0-0.2); EOS % 2.6 %; EOS ABS # 0.34 K/uL (0-0.5); HEMATOCRIT 35.6 % (42-52); IG# 0.04 K/uL (0.00-0.02); LYMPH % 12.3 %; MEAN CORPUSCULAR HGB CONC 33.7 g/dl (32-36); MEAN PLATELET VOLUME 9.1 fL (7.4-10.4); MONO % 16.1 %; NEUT % 68.5 %; NEUT ABS # 8.95 K/uL (1.4-6.5); PLATELET COUNT 201 K/uL (130-400); RED CELL DISTRIBUTION WIDTH CV 14.3 % (11.5-14.5); RED CELL DISTRIBUTION WIDTH SD 48.3 fL (36.4-46.3); WHITE BLOOD COUNT 13.05 K/uL (4.8-10.8)
--- NOTE | 2017-05-13 07:28 | Surgery Progress Note ---
Surgery Progress Note Date of Service May 13, 2017. Subjective Post OP Day: 1 + feeling well, + pain controlled, + diet (Tolerating regular diet), No complaints, No nausea, No vomiting Objective Vital Signs: Date Time Temp Pulse Resp B/P (MAP) Pulse Ox O2 Delivery O2 Flow Rate FiO2 05/13/17 03:37 36.5 60 14 93/56 (68) 97 Room Air 05/12/17 23:45 Room Air 05/12/17 22:55 37.0 66 16 106/70 (82) 98 Room Air 05/12/17 21:04 72 107/65 (79) 05/12/17 15:40 Nasal Cannula 2.0 05/12/17 14:58 36.6 63 18 98/68 (78) 99 Nasal Cannula 2.0 05/12/17 14:00 36.4 73 16 104/66 (79) 98 Nasal Cannula 2.0 05/12/17 14:00 36.4 73 16 104/66 (79) 98 Nasal Cannula 2.0 05/12/17 12:04 75 16 103/64 (77) 98 Nasal Cannula 2.0 05/12/17 11:30 36.7 66 16 91/59 (70) 98 Nasal Cannula 2.0 05/12/17 11:00 36.7 72 14 98/62 (74) 95 Nasal Cannula 2.0 05/12/17 11:00 Nasal Cannula 2.0 05/12/17 11:00 Room Air 2.0 05/12/17 10:40 37.2 81 15 101/60 95 Nasal Cannula 2 05/12/17 10:30 84 17 123/59 98 Nasal Cannula 2 05/12/17 10:20 79 13 105/66 100 Oxymask 10 05/12/17 10:10 80 17 104/66 99 Oxymask 10 05/12/17 10:02 36.7 82 16 102/61 100 Oxymask 10 05/12/17 07:34 37.1 79 18 100/64 (76) 98 General Appearance: WD/WN, no apparent distress Head: normocephalic, atraumatic Neck: trachea midline Respiratory/Chest: no respiratory distress, no accessory muscle use Incision(s): clean, drainage (mild soaked into bandage), erythema (mild) Laboratory Results: Results Past 24 Hours Test 05/12/17 08:35 3/4/18 06:53 Range/Units Prothrombin Time 12.3 9.0-12.0 SECONDS Prothromb Time International Ratio 1.2 0.9-1.1 Microbiology Results 05/12/17 Gram Stain, Received Pending 05/12/17 Bacterial Culture, Received Pending Assessment & Plan POD #1 s/p I&D left groin infected seroma Pain controlled, Tolerating regular diet, No N/V WBC 18.63 yesterday, am labs pending, Continue IV abx. Continue medical management per hospitalist service. Will continue to follow. Please contact with questions or concerns.
[2017-05-13] MEDS: TRAMADOL HCL 50 MG TAB PO PRN ×2 (08:43→17:44)
[2017-05-13] MEDS: CARVEDILOL 6.25 MG TAB PO SCH ×2 (09:00→21:35)
[2017-05-13] MEDS: hydrOXYzine HCL 25 MG TAB PO SCH ×2 (09:24→21:41)
[2017-05-13] MEDS: ASPIRIN 81 MG ECTAB PO SCH (09:25)
[2017-05-13] MEDS: NAPROXEN 250 MG TAB PO SCH ×2 (09:25→21:36)
[2017-05-13] MEDS: PAROXETINE 30 MG TAB PO SCH (09:26)
[2017-05-13] MEDS: GEMFIBROZIL 600 MG TAB PO SCH ×2 (09:26→21:36)
[2017-05-13] MEDS: ENOXAPARIN 30 MG/0.3 ML SYR SQ SCH (10:57)
[2017-05-13] MEDS: DOXYCYCLINE IV 100 MG in DEXTROSE 5% 100ML 100 ML IV SCH ×2 (12:14→22:18)
[2017-05-13] MEDS: D5NSS + 20MEQ KCL 1,000 ML IV SCH ×2 (13:52→21:00)
[2017-05-13 15:05] VITALS: BP 107/67; PULSE 64; TEMP 36.7; O2SAT 96
--- NOTE | 2017-05-13 18:22 | Progress Note ---
Internal Med Progress Note Date of Service: May 13, 2017. Provider Documentation: has some pain at left groin afebrile eating ok no chest pain or sob no nausea or abdominal pain Exam: General-alert and Oriented. Not in distress. ENT-Normal hearing Neck-no neck masses Lungs-cta b/l no wheezing or crackles Heart-s1 and s2 heard irregular no murmurs Abdomen-soft bowel sounds present non tender no distension Extremities- s/p I and D of left groin. on dressing. erythema seen. Neuro-alert and awake moves extremities ASSESSMENT & PLAN: 1. Sepsis secondary to left groin abscess/cellulitis. History of lymph node biopsy. s/p I and D by surgery cx coag neg staph currently on iv Zosyn and doxycycline continue same 2. Hypertension. Blood pressure on the lower side.will change Coreg to toprol xl. 3. coronary artery disease, cerebrovascular accident as per records stable 4. history of cardiac arrest status post ICD/PPM. 5. ongoing tobacco abuse DVT PROPHYLAXIS Lovenox DISPOSITION possible d/c in am Vital Signs: Date Time Temp Pulse Resp B/P (MAP) Pulse Ox O2 Delivery O2 Flow Rate FiO2 05/13/17 16:00 Room Air 05/13/17 15:05 36.7 64 18 107/67 (80) 96 Room Air 05/13/17 08:20 Room Air 05/13/17 07:06 36.3 60 15 97/62 (74) 97 Room Air 05/13/17 03:37 36.5 60 14 93/56 (68) 97 Room Air 05/12/17 23:45 Room Air 05/12/17 22:55 37.0 66 16 106/70 (82) 98 Room Air 05/12/17 21:04 72 107/65 (79) Lab Results: Results Past 24 Hours Test 05/13/17 06:53 Range/Units White Blood Count 13.05 4.8-10.8 K/uL Red Blood Count 3.87 4.7-6.1 M/uL Hemoglobin 12.0 14.0-18.0 g/dL Hematocrit 35.6 42-52 % Mean Corpuscular Volume 92.0 80-100 fL Mean Corpuscular Hemoglobin 31.0 25-34 pg Mean Corpuscular Hemoglobin Concent 33.7 32-36 g/dl Platelet Count 201 130-400 K/uL Mean Platelet Volume 9.1 7.4-10.4 fL Neutrophils (%) (Auto) 68.5 % Lymphocytes (%) (Auto) 12.3 % Monocytes (%) (Auto) 16.1 % Eosinophils (%) (Auto) 2.6 % Basophils (%) (Auto) 0.2 % Neutrophils # (Auto) 8.95 1.4-6.5 K/uL Lymphocytes # (Auto) 1.60 1.2-3.4 K/uL Monocytes # (Auto) 2.10 0.11-0.59 K/uL Eosinophils # (Auto) 0.34 0-0.5 K/uL Basophils # (Auto) 0.02 0-0.2 K/uL RDW Standard Deviation 48.3 36.4-46.3 fL RDW Coefficient of Variation 14.3 11.5-14.5 % Immature Granulocyte % (Auto) 0.3 % Immature Granulocyte # (Auto) 0.04 0.00-0.02 K/uL
[2017-05-13 21:30] VITALS: BP 151/60; PULSE 75
[2017-05-13] MEDS: PRAZOSIN HCL 1 MG CAP PO SCH (21:37)
[2017-05-13] MEDS ORDERED: NURSING VERBAL MED ORDER ONE (21:45)
[2017-05-13 22:47] VITALS: BP 147/96; PULSE 69; TEMP 36.8; O2SAT 97
[2017-05-14] MEDS: TRAMADOL HCL 50 MG TAB PO PRN ×3 (00:30→18:40)
[2017-05-14] MEDS: KETOROLAC TROMETHAMINE 15 MG/ML VIAL IV. PRN ×3 (01:39→19:47)
[2017-05-14] MEDS: PIPERACILL/TAZOBAC IV 3.375 GM in DEXTROSE 5% 100ML IV SCH (05:41)
[2017-05-14 07:02] LABS: BASO % 0.5 %; BASO ABS # 0.04 K/uL (0-0.2); EOS % 5.9 %; EOS ABS # 0.49 K/uL (0-0.5); HEMATOCRIT 36.4 % (42-52); HEMOGLOBIN 12.5 g/dL (14.0-18.0); IG# 0.04 K/uL (0.00-0.02); LYMPH % 20.9 %; LYMPH ABS # 1.72 K/uL (1.2-3.4); MEAN CORPUSCULAR HEMOGLOBIN 31.3 pg (25-34); MEAN CORPUSCULAR HGB CONC 34.3 g/dl (32-36); MEAN PLATELET VOLUME 9.7 fL (7.4-10.4); MONO % 13.7 %; MONO ABS # 1.13 K/uL (0.11-0.59); NEUT % 58.5 %; NEUT ABS # 4.82 K/uL (1.4-6.5); PLATELET COUNT 252 K/uL (130-400); RED CELL DISTRIBUTION WIDTH CV 14.4 % (11.5-14.5); RED CELL DISTRIBUTION WIDTH SD 48.2 fL (36.4-46.3); WHITE BLOOD COUNT 8.24 K/uL (4.8-10.8)
[2017-05-14 07:13] VITALS: BP 123/80; PULSE 60; TEMP 36.9; O2SAT 95
[2017-05-14] MEDS: ASPIRIN 81 MG ECTAB PO SCH (09:30)
[2017-05-14] MEDS: GEMFIBROZIL 600 MG TAB PO SCH ×2 (09:30→22:12)
[2017-05-14] MEDS: NAPROXEN 250 MG TAB PO SCH ×2 (09:30→22:13)
[2017-05-14] MEDS: PAROXETINE 30 MG TAB PO SCH (09:30)
[2017-05-14] MEDS: CARVEDILOL 6.25 MG TAB PO SCH (09:30)
[2017-05-14] MEDS: IBUPROFEN 200 MG TAB PO PRN (09:32)
[2017-05-14] MEDS: ENOXAPARIN 30 MG/0.3 ML SYR SQ SCH (09:35)
[2017-05-14] MEDS: hydrOXYzine HCL 25 MG TAB PO SCH ×2 (09:37→22:11)
--- NOTE | 2017-05-14 10:56 | Surgery Progress Note ---
Surgery Progress Note Date of Service May 14, 2017. Subjective awake , alert minimal pain Objective Vital Signs: Date Time Temp Pulse Resp B/P (MAP) Pulse Ox O2 Delivery O2 Flow Rate FiO2 05/14/17 08:26 Room Air 05/14/17 07:13 36.9 60 20 123/80 (94) 95 Room Air 05/14/17 00:15 Room Air 05/13/17 22:47 36.8 69 17 147/96 (113) 97 Room Air 05/13/17 21:30 75 151/60 (90) 05/13/17 16:00 Room Air 05/13/17 15:05 36.7 64 18 107/67 (80) 96 Room Air General Appearance: no apparent distress Respiratory/Chest: no respiratory distress Abdomen: soft Incision(s): clean (serous drainage on dressing, very mild cellulitis) Laboratory Results: Results Past 24 Hours Test 05/14/17 06:06 Range/Units White Blood Count 8.24 4.8-10.8 K/uL Red Blood Count 4.00 4.7-6.1 M/uL Hemoglobin 12.5 14.0-18.0 g/dL Hematocrit 36.4 42-52 % Mean Corpuscular Volume 91.0 80-100 fL Mean Corpuscular Hemoglobin 31.3 25-34 pg Mean Corpuscular Hemoglobin Concent 34.3 32-36 g/dl Platelet Count 252 130-400 K/uL Mean Platelet Volume 9.7 7.4-10.4 fL Neutrophils (%) (Auto) 58.5 % Lymphocytes (%) (Auto) 20.9 % Monocytes (%) (Auto) 13.7 % Eosinophils (%) (Auto) 5.9 % Basophils (%) (Auto) 0.5 % Neutrophils # (Auto) 4.82 1.4-6.5 K/uL Lymphocytes # (Auto) 1.72 1.2-3.4 K/uL Monocytes # (Auto) 1.13 0.11-0.59 K/uL Eosinophils # (Auto) 0.49 0-0.5 K/uL Basophils # (Auto) 0.04 0-0.2 K/uL RDW Standard Deviation 48.2 36.4-46.3 fL RDW Coefficient of Variation 14.4 11.5-14.5 % Immature Granulocyte % (Auto) 0.5 % Immature Granulocyte # (Auto) 0.04 0.00-0.02 K/uL Assessment & Plan 05/14/17- s/p Incision/ drainage infected Lt inguinal lymphocele on IV atbx, growing staph epi, wound open with packing- will discuss possible wound vac
[2017-05-14] MEDS ORDERED: CEFAZOLIN IV 1,000 MG in DEXTROSE 5% 50ML 50 ML IV SCH (12:00)
[2017-05-14] MEDS: CEFAZOLIN IV 1,000 MG in SYRINGE 0 ML IV SCH ×2 (14:11→18:29)
[2017-05-14 15:37] VITALS: BP 128/79; PULSE 62; TEMP 36.5; O2SAT 97
--- NOTE | 2017-05-14 17:56 | Progress Note ---
Internal Med Progress Note Date of Service: May 14, 2017. Provider Documentation: has some pain at left groin denies chest pain or sob eating ok afebrile no nausea Exam: General-alert and Oriented. Not in distress. ENT-Normal hearing Neck-no neck masses Lungs-cta b/l no wheezing or crackles Heart-s1 and s2 heard irregular no murmurs Abdomen-soft bowel sounds present non tender no distension Extremities- s/p I and D of left groin. on dressing. erythema seen. Neuro-alert and awake moves extremities ASSESSMENT & PLAN: 46M who recently had biopsy of left groin lymphadenopathy presents with seroma/ abscess of biopsy site. s/p i and d. cx growing coag negative staph. currently on IV ancef. Wound care consulted for possible wound vac. Possible d/c in 1-2 days 1. Sepsis secondary to left groin abscess/cellulitis. History of lymph node biopsy. s/p I and D by surgery cx coag neg staph currently on iv Zosyn and doxycycline abx changed to ancef iv wound care consulted for possible wound vac 2. Hypertension. Blood pressure on the lower side.will change Coreg to toprol xl as patient is already on prazosin. 3. coronary artery disease, cerebrovascular accident as per records stable 4. history of cardiac arrest status post ICD/PPM. 5. ongoing tobacco abuse DVT PROPHYLAXIS Lovenox DISPOSITION possible d/c in 1-2 days Vital Signs: Date Time Temp Pulse Resp B/P (MAP) Pulse Ox O2 Delivery O2 Flow Rate FiO2 05/14/17 15:37 36.5 62 20 128/79 (95) 97 Room Air 05/14/17 15:30 Room Air 05/14/17 08:26 Room Air 05/14/17 07:13 36.9 60 20 123/80 (94) 95 Room Air 05/14/17 00:15 Room Air 05/13/17 22:47 36.8 69 17 147/96 (113) 97 Room Air 05/13/17 21:30 75 151/60 (90) Lab Results: Results Past 24 Hours Test 05/14/17 06:06 Range/Units White Blood Count 8.24 4.8-10.8 K/uL Red Blood Count 4.00 4.7-6.1 M/uL Hemoglobin 12.5 14.0-18.0 g/dL Hematocrit 36.4 42-52 % Mean Corpuscular Volume 91.0 80-100 fL Mean Corpuscular Hemoglobin 31.3 25-34 pg Mean Corpuscular Hemoglobin Concent 34.3 32-36 g/dl Platelet Count 252 130-400 K/uL Mean Platelet Volume 9.7 7.4-10.4 fL Neutrophils (%) (Auto) 58.5 % Lymphocytes (%) (Auto) 20.9 % Monocytes (%) (Auto) 13.7 % Eosinophils (%) (Auto) 5.9 % Basophils (%) (Auto) 0.5 % Neutrophils # (Auto) 4.82 1.4-6.5 K/uL Lymphocytes # (Auto) 1.72 1.2-3.4 K/uL Monocytes # (Auto) 1.13 0.11-0.59 K/uL Eosinophils # (Auto) 0.49 0-0.5 K/uL Basophils # (Auto) 0.04 0-0.2 K/uL RDW Standard Deviation 48.2 36.4-46.3 fL RDW Coefficient of Variation 14.4 11.5-14.5 % Immature Granulocyte % (Auto) 0.5 % Immature Granulocyte # (Auto) 0.04 0.00-0.02 K/uL
[2017-05-14] MEDS: METOPROLOL SUCC 25MG EXT REL TAB PO SCH (22:12)
[2017-05-14] MEDS: PRAZOSIN HCL 1 MG CAP PO SCH (22:13)
[2017-05-14 22:58] VITALS: BP 136/84; PULSE 62; TEMP 37; O2SAT 98
[2017-05-15] MEDS: CEFAZOLIN IV 1,000 MG in SYRINGE 0 ML IV SCH ×3 (00:10→12:51)
[2017-05-15 05:51] LABS: BASO % 0.5 %; BASO ABS # 0.03 K/uL (0-0.2); EOS ABS # 0.46 K/uL (0-0.5); HEMATOCRIT 39.7 % (42-52); HEMOGLOBIN 13.4 g/dL (14.0-18.0); IG# 0.05 K/uL (0.00-0.02); LYMPH % 27.1 %; LYMPH ABS # 1.79 K/uL (1.2-3.4); MEAN CELL VOLUME 91.3 fL (80-100); MEAN CORPUSCULAR HEMOGLOBIN 30.8 pg (25-34); MEAN CORPUSCULAR HGB CONC 33.8 g/dl (32-36); MEAN PLATELET VOLUME 9.4 fL (7.4-10.4); MONO % 12.4 %; MONO ABS # 0.82 K/uL (0.11-0.59); NEUT % 52.2 %; NEUT ABS # 3.46 K/uL (1.4-6.5); PLATELET COUNT 310 K/uL (130-400); RED CELL DISTRIBUTION WIDTH CV 14.1 % (11.5-14.5); RED CELL DISTRIBUTION WIDTH SD 47.6 fL (36.4-46.3); WHITE BLOOD COUNT 6.61 K/uL (4.8-10.8)
[2017-05-15 06:32] LABS: CREATININE 0.83 mg/dl (0.60-1.40)
--- NOTE | 2017-05-15 06:57 | Surgery Progress Note ---
Surgery Progress Note Date of Service May 15, 2017. Subjective Patient is resting comfortably in his bed He is not having significant pain from his left inguinal wound area. Objective Vital Signs: Date Time Temp Pulse Resp B/P (MAP) Pulse Ox O2 Delivery O2 Flow Rate FiO2 05/14/17 23:45 Room Air 05/14/17 22:58 37.0 62 18 136/84 (101) 98 Room Air 05/14/17 15:37 36.5 62 20 128/79 (95) 97 Room Air 05/14/17 15:30 Room Air 05/14/17 08:26 Room Air 05/14/17 07:13 36.9 60 20 123/80 (94) 95 Room Air General Appearance: no apparent distress Respiratory/Chest: no respiratory distress Incision(s): clean, drainage (expected) Laboratory Results: Results Past 24 Hours Test 05/15/17 05:27 Range/Units White Blood Count 6.61 4.8-10.8 K/uL Red Blood Count 4.35 4.7-6.1 M/uL Hemoglobin 13.4 14.0-18.0 g/dL Hematocrit 39.7 42-52 % Mean Corpuscular Volume 91.3 80-100 fL Mean Corpuscular Hemoglobin 30.8 25-34 pg Mean Corpuscular Hemoglobin Concent 33.8 32-36 g/dl Platelet Count 310 130-400 K/uL Mean Platelet Volume 9.4 7.4-10.4 fL Neutrophils (%) (Auto) 52.2 % Lymphocytes (%) (Auto) 27.1 % Monocytes (%) (Auto) 12.4 % Eosinophils (%) (Auto) 7.0 % Basophils (%) (Auto) 0.5 % Neutrophils # (Auto) 3.46 1.4-6.5 K/uL Lymphocytes # (Auto) 1.79 1.2-3.4 K/uL Monocytes # (Auto) 0.82 0.11-0.59 K/uL Eosinophils # (Auto) 0.46 0-0.5 K/uL Basophils # (Auto) 0.03 0-0.2 K/uL RDW Standard Deviation 47.6 36.4-46.3 fL RDW Coefficient of Variation 14.1 11.5-14.5 % Immature Granulocyte % (Auto) 0.8 % Immature Granulocyte # (Auto) 0.05 0.00-0.02 K/uL Creatinine 0.83 0.60-1.40 mg/dl Est Creatinine Clear Calc Drug Dose 115.3 ml/min Estimated GFR () 120.6 Estimated GFR (Non- 104.0 Assessment & Plan 05/15/2017-patient is currently on IV Ancef with wound packing. I have asked Dr. Moses and his wound care team to assess the patient for possible wound VAC. There is the possibility A discharge in the next 1-2 days depending on his wound status. 05/14/17- s/p Incision/ drainage infected Lt inguinal lymphocele on IV atbx, growing staph epi, wound open with packing- will discuss possible wound vac 05/14/17- s/p Incision/ drainage infected Lt inguinal lymphocele on IV atbx, growing staph epi, wound open with packing- will discuss possible wound vac
[2017-05-15 07:19] VITALS: BP 126/81; PULSE 60; TEMP 36.5; O2SAT 96
[2017-05-15] MEDS: TRAMADOL HCL 50 MG TAB PO PRN ×3 (08:04→23:56)
[2017-05-15] MEDS: KETOROLAC TROMETHAMINE 15 MG/ML VIAL IV. PRN (09:19)
[2017-05-15] MEDS: ASPIRIN 81 MG ECTAB PO SCH (09:24)
[2017-05-15] MEDS: GEMFIBROZIL 600 MG TAB PO SCH ×2 (09:24→21:40)
[2017-05-15] MEDS: METOPROLOL SUCC 25MG EXT REL TAB PO SCH ×2 (09:25→21:41)
[2017-05-15] MEDS: PAROXETINE 30 MG TAB PO SCH (09:25)
[2017-05-15] MEDS: NAPROXEN 250 MG TAB PO SCH ×2 (09:25→21:36)
[2017-05-15] MEDS: ENOXAPARIN 30 MG/0.3 ML SYR SQ SCH (09:25)
[2017-05-15] MEDS: hydrOXYzine HCL 25 MG TAB PO SCH ×2 (09:28→21:40)
[2017-05-15] MEDS: MoRPHine SULFATE 2 MG/ML CARP IV PRN (10:58)
[2017-05-15] MEDS: NICOTINE 21 MG/24 HR TDSY TD SCH (11:09)
[2017-05-15 15:33] VITALS: BP 120/71; PULSE 62; TEMP 36.4; O2SAT 98
--- NOTE | 2017-05-15 16:05 | Progress Note ---
Internal Med Progress Note Date of Service: May 15, 2017. Provider Documentation: SUBJECTIVE: Has minimal pain in the left groin area. Wound VAC placed today. No fever or chills OBJECTIVE: Vital Signs-as noted below Exam: General-no sign of distress Eyes-sclera nonicteric, PERRLA/EOMI ENT-moist oral mucosa Neck-no carotid bruit, no JVD, no thyromegaly Lungs-clear to auscultation no wheezes rales Heart-regular S1-S2 Abdomen-soft nontender, selective Extremities-left groin wound VAC present, Neuro-alert awake oriented 3, no focal neurological deficit Lab data as noted below. ASSESSMENT & PLAN: 1. Left groin abscess/cellulitis -Status post recent left groin lymph node biopsy-pathology showed reactive/ inflammatory cells -Developed seroma abscess postprocedure -Culture growing coag negative staph -Antibiotic adjusted to p.o. doxycycline -will total 2 weeks of treatment -Appreciate input from wound care -Wound VAC placed -Appreciate input from social service, arrangements made for continue wound VAC at the custod[facility]. 2. Hypertension: On Toprol-XL 3. Ongoing tobacco abuse: Smoking cessation counseling -Ordered for nicotine patch 4. History of cardiac arrest: This post ICD /PPM placement 5. History of CAD/CVA as per record: No acute issues DVT PROPHYLAXIS No risk SCD and teds Encourage ambulation DISPOSITION Expected to return back to [facility] Vital Signs: Date Time Temp Pulse Resp B/P (MAP) Pulse Ox O2 Delivery O2 Flow Rate FiO2 05/17/17 15:08 36.9 72 16 107/73 (84) 96 Room Air 05/17/17 08:14 36.9 60 16 96/68 (77) 96 Room Air 05/17/17 07:20 Room Air 05/16/17 23:50 Room Air 05/16/17 23:30 37.2 69 16 114/64 (81) 98 Room Air 05/16/17 15:40 Room Air 05/16/17 15:32 37.1 62 16 115/72 (86) 96 Room Air Lab Results:
[2017-05-15] MEDS: PRAZOSIN HCL 1 MG CAP PO SCH (21:40)
[2017-05-15] MEDS: DOXYCYCLINE HYCLATE 100 MG CAP PO SCH (21:40)
[2017-05-15 23:00] VITALS: BP 124/79; PULSE 60; TEMP 37; O2SAT 95
[2017-05-16] MEDS ORDERED: CEPH500C2 PO (05:12)
--- NOTE | 2017-05-16 05:59 | Surgery Progress Note ---
Surgery Progress Note Date of Service May 16, 2017. Subjective minimal complaints- wound vac in place Objective Vital Signs: Date Time Temp Pulse Resp B/P (MAP) Pulse Ox O2 Delivery O2 Flow Rate FiO2 05/15/17 23:45 Room Air 05/15/17 23:00 37.0 60 18 124/79 (94) 95 Room Air 05/15/17 16:10 Room Air 05/15/17 15:33 36.4 62 18 120/71 (87) 98 Room Air 05/15/17 07:45 Room Air 05/15/17 07:19 36.5 60 15 126/81 (96) 96 Room Air General Appearance: no apparent distress Respiratory/Chest: no respiratory distress Incision(s): clean, drainage (has wound vac) Assessment & Plan 05/16/17- pt now has wound vac in place. He can be discharged Back to the longterm with the wound VAC in place for follow-up At the wound clinic. We will also continue him on Keflex 500 mg 4 times daily. Prescription is in the chart. I have also Written for surgical follow-up in 2-3 weeks. 05/15/2017-patient is currently on IV Ancef with wound packing. I have asked Dr. Moses and his wound care team to assess the patient for possible wound VAC. There is the possibility A discharge in the next 1-2 days depending on his wound status. 05/14/17- s/p Incision/ drainage infected Lt inguinal lymphocele on IV atbx, growing staph epi, wound open with packing- will discuss possible wound vac 05/15/2017-patient is currently on IV Ancef with wound packing. I have asked Dr. Moses and his wound care team to assess the patient for possible wound VAC. There is the possibility A discharge in the next 1-2 days depending on his wound status. 05/14/17- s/p Incision/ drainage infected Lt inguinal lymphocele on IV atbx, growing staph epi, wound open with packing- will discuss possible wound vac
--- NOTE | 2017-05-16 07:03 | Discharge Instructions ---
Discharge Instructions Date of Service May 14, 2017. Admission Reason for Admission: Sepsis Discharge Discharge Diagnosis / Problem: Sepsis Discharge Goals Goal(s): Decrease discomfort, Improve function Activity Recommendations Activity Limitations: as noted below Lifting Limitations: gradually increase as tolerated Exercise/Sports Limitations: as tolerated Shower/Bathe: no limitations Driving or Machine Use: no limitations . Instructions / Follow-Up Instructions / Follow-Up Patient to follow-up at [facility] Clinic located at [address] [place] [address] Waller in 2-3 weeks. Wound Care- Patient has wound vac in place. Will require follow-up at wound clinic. Current Hospital Diet Patient's current hospital diet: Regular Diet Discharge Diet Recommended Diet: Regular Diet Procedures Procedures Performed: Incision and Drainage Infected Left Groin Seroma Pending Studies Studies pending at discharge: no Medical Emergencies . Who to Call and When: Medical Emergencies: If at any time you feel your situation is an emergency, please call 911 immediately. . Non-Emergent Contact Non-Emergency issues call your: Primary Care Provider Call Non-Emergent contact if: temperature is above 101.5, your pain is not controlled, wound has increased drainage, wound has increased redness . "Provider Documentation" section prepared by Gayle Johnson. .
[2017-05-16] MEDS: TRAMADOL HCL 50 MG TAB PO PRN ×2 (07:39→19:03)
--- NOTE | 2017-05-16 07:52 | Wound Consultation: Inpatient ---
Wound Consultation Date of Consultation: May 15, 2017. Attending Physician: Shiloh Pollard M.D. Reason for Consultation: Postoperative wound left groin History of Present Illness Patient recently underwent an incision and drainage of a lymphocele to the left groin region. Patient states she developed swelling pain and redness in this area back in February. The area was operated on opened and drained at that time patient had additional surgery in March for the same problem. Patient underwent a third incision and drainage during this hospitalization. Patient denies any pain swelling or redness in the area. Patient denies any fever chills or night sweats. Patient denies any abdominal pain nausea or vomiting. Patient denies any other systemic complaints at this time. Family History Cancer Diabetes mellitus GRANDMOTHER FH: asthma Heart disease Hypertension Social History Smoking Status: Current Every Day Smoker Drug Use: none Marital Status: single Housing Status: other Occupation Status: other Allergies Coded Allergies: Acetaminophen (Verified Allergy, Unknown, ANAPHYLAXIS, 04/17/17) Meperidine (Verified Allergy, Unknown, ANAPHYLAXIS, 05/11/17) Home Medications Scheduled Aspirin (Aspirin), 81 MG PO DAILY Carvedilol (Coreg), 6.25 MG PO BID Cephalexin Monohydrate (Keflex), 500 MG PO QID Gemfibrozil (Lopid), 600 MG PO BID Hydroxyzine Pamoate (Vistaril), 50 MG PO BID Naproxen (Naprosyn), 500 MG PO BID Paroxetine (Paroxetine HCl), 30 MG PO DAILY Prazosin Hcl (Prazosin), 1 MG PO HS Inpatient Medications Current Inpatient Medications Medications (Trade) Dose Ordered Sig/Josefina Route Start Time Stop Time Status Last Admin Dose Admin Ketorolac Tromethamine (Toradol Inj) 15 mg Q6H PRN IV. 05/12/17 03:15 05/17/17 03:14 05/15/17 09:19 15 MG Tramadol HCl (Ultram Tab) FOR PAIN, 25-50 MG 25 MG ... Q6H PRN PO 05/12/17 03:15 06/11/17 03:14 05/16/17 07:39 50 MG Morphine Sulfate (MoRPHine SULFATE INJ) 2 mg Q4H PRN IV 05/12/17 03:15 05/26/17 03:14 05/15/17 10:58 2 MG Aspirin (Ecotrin Tab) 81 mg DAILY PO 05/12/17 08:00 06/11/17 08:59 05/15/17 09:24 81 MG Gemfibrozil (Lopid Tab) 600 mg BID PO 05/12/17 08:00 06/11/17 08:59 05/15/17 21:40 600 MG Hydroxyzine HCl (Vistaril Tab) 50 mg BID PO 05/12/17 08:00 06/11/17 08:59 05/15/17 21:40 50 MG Paroxetine HCl (pAXil) 30 mg DAILY PO 05/12/17 08:00 06/11/17 08:59 05/15/17 09:25 30 MG Ibuprofen (Advil Tab) 400 mg Q6H PRN PO 05/12/17 03:15 06/11/17 03:14 05/14/17 09:32 400 MG Prochlorperazine Edisylate 5 mg/ Syringe 5 ml @ 5 mls/min Q6H PRN IV 05/12/17 03:15 06/11/17 03:14 Naproxen (Naprosyn Tab) 500 mg BID PO 05/12/17 20:00 06/11/17 19:59 05/15/17 21:36 500 MG Prazosin HCl (Prazosin) 1 mg HS PO 05/12/17 21:00 06/11/17 20:59 05/15/17 21:40 1 MG Metoprolol Succinate (Toprol Xl Tab) 25 mg BID PO 05/14/17 21:00 06/13/17 20:59 05/15/17 21:41 25 MG Nicotine (Nicoderm Cq 21MG Patch) 1 patch QAM TD 05/15/17 10:15 06/14/17 10:14 05/15/17 11:09 1 PATCH Miscellaneous (Remove Nicoderm Patch) 1 ea HS N/A 05/15/17 21:00 06/14/17 20:59 05/15/17 21:00 1 EA Doxycycline Hyclate (Vibramycin Cap) 100 mg BID PO 05/15/17 21:00 05/25/17 20:59 05/15/17 21:40 100 MG Physical Exam Date Time Temp Pulse Resp B/P (MAP) Pulse Ox O2 Delivery O2 Flow Rate FiO2 05/15/17 23:45 Room Air 05/15/17 23:00 37.0 60 18 124/79 (94) 95 Room Air 05/15/17 16:10 Room Air 05/15/17 15:33 36.4 62 18 120/71 (87) 98 Room Air General: The patient is lying in a hospital bed in no distress. Alert, cooperative and appropriate to all questions. HEENT: Pupils equal and reactive to light. Sclera clear, EOM intact. Neck: Supple, No JVD noted Chest: CTA in all baxter. No deformity Heart: RRR without murmurs, S3, S4, thrills, rubs or heaves Abdomen: Soft, No masses, Bowel Sound present Extremities: There is a postoperative wound present in the left inguinal region measuring 5 x 1 x 2.5 cm. There is undermining between 3 and 6:00 of 1.5 cm and between 11 and 1:00 2.5 cm. No central slough active drainage or odor present. No periwound erythema tenderness or fluctuance noted. Neurological: Alert and oriented x3. No focal deficits. Skin: No rashes, papules, vesicles, excoriations Assessment & Plan Assessment: Postoperative wound left inguinal region Plan: No debridement is indicated today. The site will be managed with a wound VAC black foam in the base 125 mm of negative wound pressure with wound VAC changes 3 times weekly. Patient will continue to be monitored during his hospitalization and can be followed up in the outpatient clinic upon discharge.
[2017-05-16 08:11] VITALS: BP_SYST 96; BP_SYST 98; BP_DIAS 58; BP_DIAS 64; PULSE 59; PULSE 79; TEMP 36.5; TEMP 37.4; O2SAT 95; O2SAT 97
[2017-05-16] MEDS: ASPIRIN 81 MG ECTAB PO SCH (08:51)
[2017-05-16] MEDS: GEMFIBROZIL 600 MG TAB PO SCH ×2 (08:51→20:37)
[2017-05-16] MEDS: DOXYCYCLINE HYCLATE 100 MG CAP PO SCH ×2 (08:52→20:38)
[2017-05-16] MEDS: METOPROLOL SUCC 25MG EXT REL TAB PO SCH ×2 (08:52→20:38)
[2017-05-16] MEDS: NICOTINE 21 MG/24 HR TDSY TD SCH (08:52)
[2017-05-16] MEDS: NAPROXEN 250 MG TAB PO SCH ×2 (08:53→20:38)
[2017-05-16] MEDS: PAROXETINE 30 MG TAB PO SCH (08:53)
[2017-05-16] MEDS: hydrOXYzine HCL 25 MG TAB PO SCH ×2 (09:28→20:41)
[2017-05-16] MEDS: IBUPROFEN 200 MG TAB PO PRN (11:21)
[2017-05-16 15:32] VITALS: BP 115/72; PULSE 62; TEMP 37.1; O2SAT 96
--- NOTE | 2017-05-16 19:18 | Progress Note ---
Internal Med Progress Note Date of Service: May 16, 2017. Provider Documentation: SUBJECTIVE: waiting for Wound vac to be arranged at the nursing home offers no complain no fever or chills OBJECTIVE: Vital Signs-as noted below Exam: General-no sign of distress Eyes-sclera nonicteric, PERRLA/EOMI ENT-moist oral mucosa Neck-no carotid bruit, no JVD, no thyromegaly Lungs-clear to auscultation no wheezes rales Heart-regular S1-S2 Abdomen-soft nontender, selective Extremities-left groin wound VAC present, Neuro-alert awake oriented 3, no focal neurological deficit Lab data as noted below. ASSESSMENT & PLAN: 1. Left groin abscess/cellulitis -Status post recent left groin lymph node biopsy-pathology showed reactive/ inflammatory cells -Developed seroma abscess postprocedure -Culture growing coag negative staph -Antibiotic adjusted to p.o. doxycycline - will need total 2 weeks of treatment -Appreciate input from wound care -Wound VAC placed -Appreciate input from social service, pt will need wound VAC at the [facility] -referral /order placed -waiting for wound vac to be delivered to [facility] 2. Hypertension: On Toprol-XL 3. Ongoing tobacco abuse: Smoking cessation counseling -Ordered for nicotine patch 4. History of cardiac arrest: This post ICD /PPM placement 5. History of CAD/CVA as per record: No acute issues DVT PROPHYLAXIS No risk SCD and teds Encourage ambulation DISPOSITION Expected to return back to [facility] in next 1-2 days as arrangements made for wound care and wound vac at the [facility] Vital Signs: Date Time Temp Pulse Resp B/P (MAP) Pulse Ox O2 Delivery O2 Flow Rate FiO2 05/17/17 15:08 36.9 72 16 107/73 (84) 96 Room Air 05/17/17 08:14 36.9 60 16 96/68 (77) 96 Room Air 05/17/17 07:20 Room Air 05/16/17 23:50 Room Air 05/16/17 23:30 37.2 69 16 114/64 (81) 98 Room Air 05/16/17 15:40 Room Air 05/16/17 15:32 37.1 62 16 115/72 (86) 96 Room Air
[2017-05-16] MEDS: KETOROLAC TROMETHAMINE 15 MG/ML VIAL IV. PRN (20:32)
[2017-05-16] MEDS: PRAZOSIN HCL 1 MG CAP PO SCH (20:38)
[2017-05-16 23:30] VITALS: BP 114/64; PULSE 69; TEMP 37.2; O2SAT 98
[2017-05-17] MEDS: KETOROLAC TROMETHAMINE 15 MG/ML VIAL IV. PRN (03:01)
[2017-05-17] MEDS: TRAMADOL HCL 50 MG TAB PO PRN ×2 (07:36→15:17)
[2017-05-17 08:14] VITALS: BP 96/68; PULSE 60; TEMP 36.9; O2SAT 96
[2017-05-17] MEDS: METOPROLOL SUCC 25MG EXT REL TAB PO SCH (09:00)
[2017-05-17] MEDS: hydrOXYzine HCL 25 MG TAB PO SCH (09:09)
[2017-05-17] MEDS: NAPROXEN 250 MG TAB PO SCH (09:10)
[2017-05-17] MEDS: GEMFIBROZIL 600 MG TAB PO SCH (09:10)
[2017-05-17] MEDS: DOXYCYCLINE HYCLATE 100 MG CAP PO SCH (09:10)
[2017-05-17] MEDS: ASPIRIN 81 MG ECTAB PO SCH (09:11)
[2017-05-17] MEDS: PAROXETINE 30 MG TAB PO SCH (09:11)
[2017-05-17] MEDS: NICOTINE 21 MG/24 HR TDSY TD SCH (09:12)
[2017-05-17] MEDS: IBUPROFEN 200 MG TAB PO PRN (11:31)
[2017-05-17 15:08] VITALS: BP 107/73; PULSE 72; TEMP 36.9; O2SAT 96
[2017-05-17 15:57] VITALS: BP 107/73; PULSE 72; TEMP 36.9; O2SAT 96
[2017-05-17] MEDS ORDERED: NICO21DI4 TD (17:24)
--- NOTE | 2017-05-17 23:17 | Discharge Summary ---
Discharge Summary Date of Service May 17, 2017. Discharge Summary Admission Date: May 12, 2017 at 02:46 Discharge Date: May 17, 2017 Discharge Disposition: Home ([facility]) Principal Diagnosis: LEFT GROIN ABSCESS/CELLULITIS STATUS POST WOUND VAC Consultations: Wound care nurse/wound care attending: Dr. Marcos perez Medication Reconciliation New Medications: Nicotine (Nicoderm Cq) 21 Mg/24 Hr Dis 1 PATCH TD QAM for 90 Days, #90 PATCH Continued Medications: Aspirin (Aspirin) 81 Mg Tab 81 MG PO DAILY Carvedilol (Coreg) 6.25 Mg Tab 6.25 MG PO BID, TAB Gemfibrozil (Lopid) 600 Mg Tab 600 MG PO BID, TAB Hydroxyzine Pamoate (Vistaril) 50 Mg Cap 50 MG PO BID, CAP Naproxen (Naprosyn) 500 Mg Tab 500 MG PO BID, TAB Paroxetine (Paroxetine HCl) 30 Mg Tab 30 MG PO DAILY Prazosin Hcl (Prazosin) 1 Mg Cap 1 MG PO HS, CAP Referrals At Discharge Follow up Referrals: Physician Referral - 05/25/17 with Marcos Perez, DO Surgery Referral - Please Call For Appointment with Mendoza Waller M.D. Admission Information HPI (per Admitting provider): DATE OF ADMISSION: 05/12/2017 PRIMARY CARE DOCTOR: JESSICA Khanna CHIEF COMPLAINT: Left groin pain, swelling. HISTORY OF PRESENT ILLNESS: History obtained from the patient and records. Medical history significant for CAD, CVA as per records, hypertension, hyperlipidemia, PTSD, history of cardiac arrest sp ICD/PPM, ongoing tobacco abuse. Recent confinement last month for left inguinal adenopathy likely reactive. Patient initially presented w/ sepsis symptoms. cultures no growth. Antibiotics eventually stopped. Patient underwent lymph node biopsy which showed reactive hyperplasia with inflammation. 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 Patient had a followup with surgeon last week in the office. Sutures removed as per patient, no concerns with healing as per patient. Yesterday, the patient noted increased swelling on the left groin, fever, chills, nausea, vomiting and increasing achy groin pain. No chest pain, no shortness of breath. Patient brought to Emergency Room. He received Vancomycin and Zosyn for possible sepsis. MEDICAL HISTORY: As above. SURGERIES: ICD/PPM placement. HOME MEDICATIONS: Include aspirin, carvedilol, prazosin, Vistaril . ALLERGIES: TYLENOL, MEPERIDINE. FAMILY HISTORY: There is a family history of heart disease. PERSONAL AND SOCIAL HISTORY: A pack of cigarettes lasting him 2 weeks. No EtOH intake, care home inmate. REVIEW OF SYSTEMS: As per HPI, all 10 systems reviewed, all other ROS negative. Physical Exam (per Admitting): PHYSICAL EXAMINATION: VITAL SIGNS: Blood pressure is noted to be 100/68, later 94/64, pulse rate 81, RR 32, temperature 36.9, sats 97 on room air. GENERAL: Noted to be uncomfortable, in respiratory distress. SKIN: Normal color, warm. HEENT: [place] palpebral conjunctivae. No ptosis. Dry mucosa. NECK: Supple, nontender. CHEST: Clear to auscultation. No tenderness. HEART: RRR no murmur. ABDOMEN: Soft. tender swelling on the left groin with some fluctuance. EXTREMITIES: No LE tenderness, No edema. No gross deformities NEUROLOGIC: Coherent, no gross focality. Hospital Course Physical exam: Exam: General-no sign of distress Eyes-sclera nonicteric, PERRLA/EOMI ENT-moist oral mucosa Neck-no carotid bruit, no JVD, no thyromegaly Lungs-clear to auscultation no wheezes rales Heart-regular S1-S2 Abdomen-soft nontender, selective Extremities-left groin wound VAC present, Neuro-alert awake oriented 3, no focal neurological deficit Assessment and plan: 1. Left groin abscess/cellulitis -Status post recent left groin lymph node biopsy-pathology showed reactive/ inflammatory cells -Developed seroma abscess postprocedure -Culture growing coag negative staph -Antibiotic adjusted to p.o. doxycycline -will total 2 weeks of treatment -Appreciate input from wound care -Wound VAC placed -Appreciate input from social service, arrangements made for continue wound VAC at the care home. 2. Hypertension: On Toprol-XL 3. Ongoing tobacco abuse: Smoking cessation counseling -Ordered for nicotine patch 4. History of cardiac arrest: This post ICD /PPM placement 5. History of CAD/CVA as per record: No acute issues DVT PROPHYLAXIS No risk SCD and teds Encourage ambulation DISPOSITION Stable to return back to [facility] today Total time spent on discharge = 35 minutes This includes examination of the patient, discharge planning, medication reconciliation, and communication with other providers. Discharge Instructions Discharge Instructions Date of Service May 14, 2017. Admission Reason for Admission: Sepsis Discharge Discharge Diagnosis / Problem: Sepsis Discharge Goals Goal(s): Decrease discomfort, Improve function Activity Recommendations Activity Limitations: as noted below Lifting Limitations: gradually increase as tolerated Exercise/Sports Limitations: as tolerated Shower/Bathe: no limitations Driving or Machine Use: no limitations . Instructions / Follow-Up Instructions / Follow-Up Patient to follow-up at [facility] Clinic located at [address] [place], [place] [address], [place] with Dr. Waller in 2-3 weeks. Wound Care- Patient has wound vac in place. Will require follow-up at wound clinic. Current Hospital Diet Patient's current hospital diet: Regular Diet Discharge Diet Recommended Diet: Regular Diet Procedures Procedures Performed: Incision and Drainage Infected Left Groin Seroma Pending Studies Studies pending at discharge: no Medical Emergencies . Who to Call and When: Medical Emergencies: If at any time you feel your situation is an emergency, please call 911 immediately. . Non-Emergent Contact Non-Emergency issues call your: Primary Care Provider Call Non-Emergent contact if: temperature is above 101.5, your pain is not controlled, wound has increased drainage, wound has increased redness . "Provider Documentation" section prepared by Gayle Johnson. . Addendum: Shiloh Pollard M.D. on 05/17/17 @ 17:33 Discharge Inst - Addendum Addendum Notes: INSTRUCTION FOR WOUND VAC : Patient will be on wound VAC with 125 mm of negative pressure wound VAC to be changed 3 times weekly (Sunday and Sunday) Next wound VAC change tomorrow 05/18/2017 Follow-up with wound clinic as per schedule next week 05/25/2017 @10 AM Address for wound clinic: [address] [place] [address]. [address] [place] [address] Addendum Provider: Addendum Notes were documented by provider Shiloh Pollard. Additional Copies To Marcos Perez DO
[2017-05-25] MEDS ORDERED: SULF800T23 PO (10:22)
== END 2017-05-17 19:19 | disposition home or self-care (01) | DRG 854 ==
LOC: C.EDB 21:34 → C.4E 05-12 02:46 → EDBEDREQ 05-12 02:48 → ENRESERV 05-12 03:01 → C.MSN 05-12 11:07 → C.MSW 05-12 13:55
PROVIDERS: ADMIT Internal Medicine; ATTEND Hospitalist
PROC: 0Y960ZZ Drainage of Left Inguinal Region, Open Approach (ICD-10-PCS; principal; 2017-05-12 09:00)
DX: A41.9 Sepsis, unspecified organism (principal); L76.34 Postprocedural seroma of skin and subcutaneous tissue following other procedure; T81.4XXA Infection following a procedure, initial encounter; L02.214 Cutaneous abscess of groin; I25.10 Atherosclerotic heart disease of native coronary artery without angina pectoris; Z86.73 Personal history of transient ischemic attack (TIA), and cerebral infarction without residual deficits; J45.909 Unspecified asthma, uncomplicated; Z95.0 Presence of cardiac pacemaker; B95.8 Unspecified staphylococcus as the cause of diseases classified elsewhere; E78.5 Hyperlipidemia, unspecified; F43.10 Post-traumatic stress disorder, unspecified; F17.200 Nicotine dependence, unspecified, uncomplicated; Z88.8 Allergy status to other drugs, medicaments and biological substances; I10 Essential (primary) hypertension; Z86.74 Personal history of sudden cardiac arrest; Y83.8 Other surgical procedures as the cause of abnormal reaction of the patient, or of later complication, without mention of misadventure at the time of the procedure